=== PATIENT | female | born 1940 | race Caucasian/White ===

== ENCOUNTER 2016-06-26 12:24 | Emergency (ER) | payer OTHER, MEDICARE ==
[~2016-06-26] VITALS: Ht 167.6 cm; Wt 127.0 kg
[~2016-06-26 12:24] MED LIST: ASPIRIN EC81 M1 PO; CRESTOR10 M1 PO; LISINOPRIL-HCT1 EAC2 PO; MECLIZINE HCL25 MG PO; METOPROLOL TART25 M1 PO
[2016-06-26 12:28] VITALS: BP 180/71
--- NOTE | 2016-06-26 12:54 | ED UPPER/LOWER EXTREMITY COMPL ---
History of Present Illness General Chief Complaint: Lower Extremity Problems Stated Complaint: SIB DR MONICA MCCLAIN RIGHT LEG PAIN Source: patient, old records Exam Limitations: no limitations Vital Signs & Intake/Output Vital Signs & Intake/Output Vital Signs Date Time Temp Pulse Resp B/P Pulse O2 O2 Flow FiO2 Ox Delivery Rate 06/26 1228 97.0 69 18 180/71 98 Room Air Allergies Coded Allergies: Penicillins (Intermediate, NAUSEA, VOMITING 02/28/16) amoxicillin (Intermediate, NAUSEA, VOMITING 02/28/16) hydrocodone (Intermediate, NAUSEA, VOMITING 02/28/16) oxycodone (Intermediate, NAUSEA, VOMITING 02/28/16) Reconcile Medications Aspirin (Ecotrin*) 81 MG TABLET. 1 TAB PO DAILY HEART HEALTH (Reported) Lisinopril/Hydrochlorothiazide (Lisinopril-Hctz 10-12.5 MG Tab) 1 EACH TABLET 1 TAB PO DAILY HEART (Reported) Metoprolol Tartrate 25 MG TABLET 1 TAB PO BID HEART (Reported) Rosuvastatin Calcium (Crestor) 10 MG TABLET 1 TAB PO DAILY CHOLESTEROL ( Reported) Triage Note: 76 Y/O FEMALE C/O R LOWER EXTERMITY PAIN X 3 MONTHS; STATES PAIN IS LIKE A "KAROLINE HORSE" AND HAS BEEN WORSENING OVER LAST WEEK. PT STATES SHE WAS EVALUATED BY VASCULAR SURGEON AND WAS TOLD SHE NEEDS A "CAMERA PUT IN THE VEIN TO LOOK FOR A BLOCKAGE". STATES SHE ALSO HAD AN ULTRASOUND WHICH WAS NEGATIVE. PT STATES SHE ALSO HAS A RASH AND SWELLING TO THE AREA OF PAIN. UNABLE TO VISUALIZE IN TRIAGE DUE TO PANTS Triage Nurses Notes Reviewed? yes Onset: Gradual Duration: week(s): (x months worse x 2 weeks), intermittent, waxing and waning Timing: recent history Severity: mild, moderate Severity Numbers: 6 Pain/Injury Location: Bilateral: Leg. Method of Injury: unknown Modifying Factors: Worsens With: movement. Associated Symptoms: none HPI: 76-year-old female with history of hypertension high cholesterol CABG presents complaining of a several month history of rash to the anterior aspect of bilateral legs associated with right calf pain that she's had intermittently for the past several months worse over the past few weeks. She states the pain feels like a "charley horse" that comes on with exertion and moving around. She states she has been seen by vascular doctor in the past who was treating her rashes and states it was resolved with going to the vascular doctor however that they wanted to perform a procedure on her veins. The patient states that she did not believe that this was a vascular issue and stopped going. She states the symptoms have persisted since then. She is not on any blood thinners. She denies any numbness or tingling in her legs, change in the skin complexion, pallor,, coolness or any other concerns. She denies any pain at this time she's been taking Tylenol with relief. No chest pain no shortness of breath (EMI CHAU) Past History Travel History Traveled to [place] past 21 day No Medical History Any Pertinent Medical History? 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 No (EMI CHAU) Review of Systems Review of Systems Constitutional: Reports: see HPI. All Other Systems: Reviewed and Negative Comments Review of systems: See HPI, All other systems negative. Constitutional, no chills no fever, no malaise HEENT: no sore throat no congestion, no ear pain Cardiovascular: No chest pain , no palpitation Skin, no rashes, no change in skin Respiratory: No dyspnea no cough no sputum GI: No nausea no vomiting, no diarrhea : No dysuria No hematuria, no frequency Muscle skeletal: No joint pain, no joint swelling, no back pain, no neck pain, Neurologic: No numbness no headache Psych: No stress Heme/endocrine: No bruising no bleeding Immunology: No lymphadenopathy (EMI CHAU) Physical Exam Physical Exam General Appearance: well developed/nourished, alert, awake Comments: Well-developed well-nourished person in no acute distress HEENT: Normal EENT exam; PERRL, EOMI, HEAD is atraumatic. moist mucous membranes. Neck: Supple, normal range of motion Back: Nontender, Full range of motion Cardiovascular: Regular rate and rhythms no murmurs rubs Respiratory: No respiratory distress. Patient speaking in full complete sentences. Breath sounds clear to auscultation bilaterally: NO W/R/R Abdomen: Soft, nontender nondistended, no appreciable Extremity: 1+ bilateral lower edema, full range of motion of extremities, normal and equal pulses bilaterally, 5 out of 5 strength noted to bilateral upper and lower extremities Neuro: Alert oriented x3, motor sensory normal, there were no obvious focal neurologic abnormalities. Skin: No appreciable rash on exposed skin, there are scaly erythematous plaques noted to bilateral anterior shins Psych: Mood and affect is normal, memory and judgment is normal. (ZULEIKA LEON,EMI) Progress Differential Diagnosis: arterial insufficiency, cellulitis, compartment syndrome , contusion, DVT, sprain, peripheral vascular disease venous stasis dermatitis Diagnostic Imaging: Viewed by Me: Ultrasound. Discussed w/RAD: Ultrasound. Radiology Impression: PATIENT: GEORGE MARIANO PRESENT AGE: 76 PATIENT ACCOUNT NO: [id number] : 38 LOCATION: [facility] ORDERING PHYSICIAN: EMI LEON SERVICE DATE: 06/26/16 EXAM TYPE: US - US-UNILATERAL VENOUS DOPPLER EXAMINATION: US TRIPLEX LOWER EXTREMITY, RIGHT CLINICAL INFORMATION: Right calf pain. COMPARISON: 12/14/2015. TECHNIQUE: Color- flow triplex imaging with spectral analysis and compression Doppler were performed on the right lower extremity. The nuclear technologist reports that this was a difficult examination due to patient body habitus, and that the patient was unable to fully recline due to vertigo. FINDINGS: The right common femoral vein is compressible and exhibits a phasic waveform; this suggests that the iliac veins are widely patent above. Within the proximal thigh, the visualized profunda femoris vein is patent and the examined greater saphenous vein and saphenofemoral junction are normal. Superficial femoral vein is patent in the proximal, mid and distal thigh. Popliteal vein appears normal to the level of the trifurcation. The calf veins are difficult to evaluate due to patient body habitus; however, the visualized deep venous segments are grossly patent on color Doppler imaging. No evidence of Canales's cyst. IMPRESSION: No evidence of deep vein thrombosis in the right lower extremity. DICTATED BY: PEDRO HERNANDEZ MD DATE/TIME DICTATED:06/26/161401 CHILD DEVELOPMENT ASSOCIATE TEACHER:MEET DATE/TIME TRANSCRIBED:06/26/161401 CONFIDENTIAL, DO NOT COPY WITHOUT APPROPRIATE AUTHORIZATION. <Electronically signed in Other Vendor System> SIGNED BY: PDERO HERNANDEZ MD 06/26/16 1408 (EMI CHAU) Plan of Care: Current Medications Sig/Manuel Start time Last Medication Dose Stop Time Status Admin Triamcinolone 1 MIRANDA ONCE ONE 06/26 1415 AC Acetonide 06/26 1416 (Kenalog) Ultrasound ordered patient denies any symptoms at this time case was discussed with Dr. Tim Old records including the patient's previous ultrasound from November of this year was reviewed. I discussed with the patient and her ultrasound findings. Patient was evaluated by Dr. Tim who agrees with plan she'll follow up with vascular surgery this week I discussed with patient her ultrasound results, co band dressing applied. I discussed with her need to follow up with her vascular surgeon who she seen in the past for further workup. She feels couple of this blanches declining anything prescription sainz for pain Tylenol as needed she feels comfortable plan (EMI CHAU) Departure Departure Time of Disposition: 1416 Disposition: HOME OR SELF CARE Condition: Stable Clinical Impression Primary Impression: Stasis dermatitis Referrals: ANNY ANDERSON DO (PCP/Family) Additional Instructions: Follow-up with your primary care physician as well as your vascular surgeon this week Departure Forms: Customer Survey General Discharge Information (EMI CHAU) PA/PATTERN PAINTER Co-Sign Statement Statement: ED Attending supervision documentation- [X] I saw and evaluated the patient. I have also reviewed all the pertinent lab results and diagnostic results. I agree with the findings and the plan of care as documented in the PA's/PATTERN PAINTER's documentation. [] I have reviewed the ED Record and agree with the PA's/PATTERN PAINTER's documentation. [] Additions or exceptions (if any) to the PAs/PATTERN PAINTER's note and plan are summarized below: [] (TRINH WALTON,MAGGY Evans)
--- NOTE | 2016-06-26 14:08 | ULTRASOUND REPORT ---
EXAMINATION: US TRIPLEX LOWER EXTREMITY, RIGHT CLINICAL INFORMATION: Right calf pain. COMPARISON: 12/14/2015. TECHNIQUE: Color-flow triplex imaging with spectral analysis and compression Doppler were performed on the right lower extremity. The electronics engineering technologist reports that this was a difficult examination due to patient body habitus, and that the patient was unable to fully recline due to vertigo. FINDINGS: The right common femoral vein is compressible and exhibits a phasic waveform; this suggests that the iliac veins are widely patent above. Within the proximal thigh, the visualized profunda femoris vein is patent and the examined greater saphenous vein and saphenofemoral junction are normal. Superficial femoral vein is patent in the proximal, mid and distal thigh. Popliteal vein appears normal to the level of the trifurcation. The calf veins are difficult to evaluate due to patient body habitus; however, the visualized deep venous segments are grossly patent on color Doppler imaging. No evidence of Canales's cyst. IMPRESSION: No evidence of deep vein thrombosis in the right lower extremity.
== END 2016-06-26 14:33 ==
LOC: ERH 12:24
DX: I87.2 Venous insufficiency (chronic) (peripheral) (principal); Z87.891 Personal history of nicotine dependence

== ENCOUNTER 2017-07-12 09:52 | Emergency (ER) | payer OTHER, MEDICARE ==
[~2017-07-12] VITALS: Ht 165.1 cm; Wt 131.5 kg
[~2017-07-12 09:52] MED LIST changes: +CYCLOBENZAPRINE10 M1 PO; +NORCO 5-325 TA1 EACH PO; +PREDNISONE10 M2 PO; +TRAMADOL HCL50 M1 PO
--- NOTE | 2017-07-12 11:15 | ED GENERAL ADULT ---
History of Present Illness General Chief Complaint: General Adult Stated Complaint: SIATICA Source: patient Exam Limitations: no limitations Vital Signs & Intake/Output Vital Signs & Intake/Output Vital Signs Date Time Temp Pulse Resp B/P B/P Pulse O2 O2 Flow FiO2 Mean Ox Delivery Rate 07/12 1218 96.3 104 16 140/98 94 Room Air 07/12 1212 Room Air 07/12 0958 96.0 103 20 95 Room Air Room Air Allergies Coded Allergies: Penicillins (Intermediate, NAUSEA, VOMITING 07/12/17) amoxicillin (Intermediate, NAUSEA, VOMITING 07/12/17) hydrocodone (Intermediate, NAUSEA, VOMITING 07/12/17) oxycodone (Intermediate, NAUSEA, VOMITING 07/12/17) Reconcile Medications Aspirin (Ecotrin*) 81 MG TABLET.DR 1 TAB PO DAILY HEART HEALTH (Reported) Cyclobenzaprine HCl 10 MG TABLET 1 TAB PO TID PRN MUSCLE SPASMS Cyclobenzaprine HCl 10 MG TABLET 1 TAB PO QPM PAIN Hydrocodone/Acetaminophen ([place] 5-325 Tablet) 5 MG-325 MG TABLET 1-2 TAB PO Q6P PRN PAIN TAKE WITH FOOD Lisinopril/Hydrochlorothiazide (Lisinopril-Hctz 10-12.5 MG Tab) 1 EACH TABLET 1 TAB PO DAILY HEART (Reported) Metoprolol Tartrate 25 MG TABLET 1 TAB PO BID HEART (Reported) Prednisone 10 MG TABLET 1 TAB PO DAILY SPINAL STENOSIS Prednisone 10 MG TABLET 1 TAB PO DAILY spinal stenosis Prednisone 20 MG TABLET 1 TAB PO DAILY SPINAL STENOSIS Rosuvastatin Calcium (Crestor) 10 MG TABLET 1 TAB PO DAILY CHOLESTEROL ( Reported) Tramadol HCl 50 MG TABLET 1 TAB PO DAILY PRN PAIN Triage Note: PT TO ED FOR C/C OF ? SCIATICA PAIN THAT PATIENT HAS HAD SINCE APRIL. PT VERY EMOTIONAL IN TRIAGE. HAS SEEN DR. PEREZ AND WAS DIAGNOSED WITH SCIATICA BUT HAS NOT HAD RELIEF OF PAIN WITH HOME MEDS. ALSO COMPLAINS OF R ANKLE PAIN X A COUPLE OF DAYS. Triage Nurses Notes Reviewed? yes Onset: Abrupt Duration: week(s): Timing: recent history HPI: 07/12/17 12:03 PM 77-year-old female in severe emergency department with ongoing sciatica pain. She says she's had pain in her back that radiates down her right buttocks into her leg since April of last year. She was seen and evaluated in the emergency department and has had CT scan which confirmed the diagnosis of degenerative joint disease and spinal stenosis. She's also had a prior negative lower extremity ultrasound for DVT. Now she presents with ongoing pain. She says she saw Dr. Pop and was put on diclofenac and this had minimal relief. She is requesting assistance with her pain. There is no bowel or bladder dysfunction. She can ambulate. Lower extremity neurological exam is normal She has bilateral lower extremity swelling. No calf tenderness. Past History Travel History Traveled to [place] past 21 day No Medical History Any Pertinent Medical History? 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 No Review of Systems Review of Systems Constitutional: Denies: fever. EENTM: Denies: visual changes. Respiratory: Denies: short of breath. Cardiovascular: Denies: chest pain. GI: Denies: abdominal pain. Genitourinary: Reports: no symptoms. Musculoskeletal: Reports: see HPI. Skin: Denies: rash. Neurological/Psychological: Reports: no symptoms. Hematologic/Endocrine: Reports: no symptoms. Physical Exam Physical Exam General Appearance: alert, awake, anxious, mild distress Head: atraumatic, normal appearance Eyes: Bilateral: normal appearance, PERRL, EOMI. Ears, Nose, Throat: normal pharynx, normal ENT inspection Neck: normal inspection, supple Respiratory: normal breath sounds, chest non-tender, no respiratory distress Cardiovascular: regular rate/rhythm Peripheral Pulses: 4+ radial (R), 4+ radial (L) Gastrointestinal: soft, non-tender Back: decreased range of motion Extremities: pedal edema, bilaterally, no calf tenderness Neurologic/Psych: no motor/sensory deficits, awake, alert, oriented x 3 Skin: intact, normal color, warm/dry Comments: She has a positive right straight leg raising test. She's had the pain for over a year. She was given subcutaneous morphine. Discharged on prednisone. Given follow-up with the pain center. Core Measures ACS in differential dx? No CVA/TIA Diagnosis: No Sepsis Present: No Sepsis Focused Exam Completed? No Progress Differential Diagnoses I considered the following diagnoses in my evaluation of the patient: [Spinal stenosis, sciatica, compression fracture] Plan of Care: Follow-up the pain center. Follow-up with your doctor next week. Prednisone as directed. Flexeril as directed. Initial ED EKG: none Departure Departure Disposition: HOME OR SELF CARE Condition: Stable Clinical Impression Primary Impression: Sciatica Secondary Impressions: Spinal stenosis Referrals: Virgie Loza MD (PCP/Family) Departure Forms: Customer Survey General Discharge Information Prescriptions: Current Visit Scripts Prednisone 1 TAB PO DAILY #6 TAB Cyclobenzaprine HCl 1 TAB PO QPM #10 TAB Critical Care Note Critical Care Note Critical Care Time: non-applicable
[2017-07-12] MEDS ORDERED: CYCLOBENZAPRINE10 M1 PO (12:11)
[2017-07-12] MEDS ORDERED: PREDNISONE20 M1 PO (12:11)
[2017-07-12 12:18] VITALS: BP 140/98
== END 2017-07-12 12:26 ==
LOC: ERH 09:52
DX: M54.41 Lumbago with sciatica, right side (principal); M48.00 Spinal stenosis, site unspecified
CPT/HCPCS: 96372

== ENCOUNTER 2017-08-13 14:34 | Inpatient (IN) | payer OTHER, MEDICARE ==
[~2017-08-13] VITALS: Ht 165.1 cm; Wt 128.0 kg
[~2017-08-13 14:34] MED LIST changes: +PREDNISONE20 M1 PO
--- NOTE | 2017-08-13 14:38 | ED GENERAL ADULT ---
History of Present Illness General Chief Complaint: General Adult Stated Complaint: BIBA FOR NEW ONSET A.FIB AND CHF Source: patient, old records, EMS Exam Limitations: no limitations Vital Signs & Intake/Output Vital Signs & Intake/Output Vital Signs Date Time Temp Pulse Resp B/P B/P Pulse O2 O2 Flow FiO2 Mean Ox Delivery Rate 08/13 1740 97.6 99 22 135/89 96 Nasal 2.0L Cannula 08/13 1600 96 Nasal 2.0L Cannula 08/13 1502 94 Nasal 2.0L Cannula 08/13 1451 98.0 92 24 162/69 97 Nasal 2.0L Cannula 08/13 1435 98 24 93 Room Air Allergies Coded Allergies: Penicillins (Intermediate, NAUSEA, VOMITING 07/12/17) amoxicillin (Intermediate, NAUSEA, VOMITING 07/12/17) hydrocodone (Intermediate, NAUSEA, VOMITING 07/12/17) oxycodone (Intermediate, NAUSEA, VOMITING 07/12/17) Triage Nurses Notes Reviewed? yes Onset: Gradual Duration: week(s): Timing: no prior history Injury Environment: home Severity: moderate Modifying Factors: Improves With: immobilization. Worsens With: movement. HPI: Pt is a 77 yo WF with a PMH significant for CABG, HTN, HLD, 20-25 year tobacco use, who was BIBA from home after she was encouraged to report to [facility] by her change of address clerk for IV lasix as she presented to the Software Engineering Analyst's office early this morning with signs of fluid overload, SOB, bilat pedal edema, abdominal distension. The pt states she was newly diagnosed with atrial fibrilliation and CHF this morning. Pt reports increasing SOB over the past 6 weeks, slightly worse in supine position, she currently uses two pillows at bedtime. She noted her LE edema about 2 wks ago, as well as her abdominal distension which has made driving slightly more uncomfortable due to a lack of distance between her abdomen and steering wheel. She has an intermittent cough triggerred by warm air and certain foods. Denies subjective fevers. Denies prolonged periods of inactivity or immobility. (Junaid LEON,Merlene) Reconcile Medications Aspirin (Ecotrin*) 81 MG TABLET. 1 TAB PO DAILY HEART HEALTH (Reported) Lisinopril/Hydrochlorothiazide (Lisinopril-Hctz 10-12.5 MG Tab) 1 EACH TABLET 1 TAB PO DAILY HEART (Reported) Metoprolol Tartrate 25 MG TABLET 1 TAB PO BID HEART (Reported) Rosuvastatin Calcium (Crestor) 10 MG TABLET 1 TAB PO DAILY CHOLESTEROL ( Reported) Tramadol HCl 50 MG TABLET 1 TAB PO DAILY PRN PAIN (Erin WALTON,Jose G) Past History Travel History Traveled to [place] past 21 day No Medical History Any Pertinent Medical History? 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 Yes (Merlene Blanton) Review of Systems Review of Systems Constitutional: Reports: see HPI, malaise. Denies: chills, fever. Respiratory: Reports: cough, orthopnea, short of breath. Cardiovascular: Reports: edema. Denies: chest pain, palpitations. GI: Reports: distention. Denies: nausea, bloody stool, vomiting. Comments Review of systems: See HPI, All other systems negative. Constitutional, no chills fever or weight loss HEENT: No visual changes no sore throat no congestion Cardiovascular: No chest pain ,palpitation Skin, no jaundice Respiratory: No cough sputum or hemoptysis GI: No nausea no vomiting : No dysuria No hematuria Muscle skeletal: no back pain, no neck pain, Neurologic: No numbness no confusion Psych: No stress anxiety or depression,. Heme/endocrine: No bruising no bleeding no polyuria or polydipsia Immunology: No splenectomy or history of AIDSs (Merlene Blanton) Physical Exam Physical Exam General Appearance: no apparent distress, alert, awake, comfortable, obese Head: normal appearance Eyes: Bilateral: EOMI. Respiratory: normal breath sounds, lungs clear Cardiovascular: irregularly irregular Gastrointestinal: soft, distention, tenderness Extremities: pedal edema, bilat LE excoriations/ulcerations Neurologic/Psych: alert, oriented x 3 Skin: scabbed lesions over anterior skin bilaterally. no active bleeding Comments: obese person in no acute distress HEENT: Pupils equally round and reactive to light and accommodation. Nose is atraumatic. Neck: Supple, no lymphadenopathy, normal range of motion without pain or tenderness Back: Nontender Cardiovascular: irRegular rate and rhythms no murmurs rubs or gallops, normal JVP Respiratory: Chest nontender. No respiratory distress.breath sounds diminished to auscultation bilaterally at bases Abdomen: Soft, nslightly distended in the lower abdomen, positive edema, , no appreciable organomegaly. Normal bowel sounds. rectal: brown stool ,guiac negative. Extremity: 2 Plus pitting edema in the lower extremities bilaterally, no calf tenderness to palpation, normal and equal pulses. Neuro: Alert oriented x3, motor sensory normal Skin: dry scabbing lesions approx 1-2 cm in size scattered over anterior garsia bilaterally. Psych: Mood and affect is normal, memory and judgment is normal. Core Measures ACS in differential dx? Yes CVA/TIA Diagnosis: No Sepsis Present: No Sepsis Focused Exam Completed? No (Junaid LEON,Merlene) Progress Differential Diagnoses I considered the following diagnoses in my evaluation of the patient: copd, chf, pna, influenza, pe,acs, onset atrial fibrillation, cardiac arrhythmia, electrolyte abnormality, anemia, flu - Plan of Care: Orders Procedure Date/time Status CBC WITHOUT DIFFERENTIAL 08/14 0600 Active BASIC ELECTROLYTES PLUS BUN&CR 08/14 0600 Active TROPONIN LEVEL 08/14 0300 Active EKG 08/14 0300 Active Heart Healthy Diet 08/13 D Active TROPONIN LEVEL 08/13 2100 Active EKG 08/13 2100 Active URINALYSIS 08/13 1723 Active Code Status 08/13 1719 Active Lab Add-on Test 08/13 1623 Active ECHOCARDIOGRAM 08/13 1623 Active TRC EVALUATION (GEN) 08/13 1618 Active Pathway - chart 08/13 1618 Active House Staff 08/13 1618 Active Patient Data 08/13 1618 Active Code Status 08/[address] CHEST WO IV CONTRAST 08/[address] ABD & PELVIS W/O IV CONTRAS 08/13 1605 Active OXYGEN SETUP (GEN) 08/13 1559 Active Saline Lock 08/13 1559 Active Admit to inpatient 08/13 1559 Active Vital Signs 08/13 1559 Active Activity/Ambulation 08/13 1559 Active Code Status 08/13 1559 Complete THYROID STIMULATING HORMONE 08/13 1450 Complete FREE T4 08/13 1450 Complete Telemetry/Mortgage Coordinator 08/13 1446 Active PARTIAL THROMBOPLASTIN TIME 08/13 1446 Complete PROTHROMBIN TIME 08/13 1446 Complete D-DIMER 08/13 1446 Complete TROPONIN LEVEL 08/13 1444 Complete COMPREHENSIVE METABOLIC PANEL 08/13 1444 Complete CBC WITHOUT DIFFERENTIAL 08/13 1444 Complete B-TYPE NATRIURETIC PEP (BNP) 08/13 1444 Complete EKG 08/13 1435 Active Weight 08/13 UNK Active VTE Mechanical Prophylaxis 08/13 UNK Active Vital Signs 08/13 UNK Active Telemetry/Mortgage Coordinator 08/13 UNK Active Intake & Output 08/13 UNK Active Current Medications Sig/Manuel Start time Last Medication Dose Stop Time Status Admin Atorvastatin Calcium 10 MG 1700 08/14 1700 UNVr (Lipitor) Furosemide 20 MG 7:30 AM, & 4:30 PM 08/14 0730 UNVr (Lasix) Metoprolol Tartrate 25 MG BID 08/13 2200 UNVr (Lopressor) Aspirin Buffered 81 MG DAILY 08/13 1717 UNVr 08/13 (Ecotrin) 1755 Acetaminophen 650 MG Q6P PRN 08/13 1630 AC (Tylenol) Heparin Sodium 25,000 UNIT Q24H 08/13 1630 AC 08/13 (Porcine) 1752 (Heparin) Sodium Chloride 500 ML Laboratory Tests 08/13/17 1450: Anion Gap 11, Estimated GFR 40 L, BUN/Creatinine Ratio 23.8, Glucose 116 H, Calcium 9.7, Total Bilirubin 0.9, AST 212 H, ALT 190 H, Alkaline Phosphatase 120, Troponin I 0.03, Job-W-Fjpdivnlinr Pept 1260 H, Total Protein 7.3, Albumin 4.1, Globulin 3.2, Albumin/Globulin Ratio 1.3, TSH 4.110, Free T4 1.03, PT 13.1 H, INR 1.25 H, APTT 30, D-Dimer High Sensitivty 235, CBC w Diff NO MAN DIFF REQ , RBC 3.49 L, MCV 89.8, MCH 29.4, MCHC 32.8 L, RDW 14.8 H, MPV 7.4, Gran % 67.4, Lymphocytes % 17.8 L, Monocytes % 8.9, Eosinophils % 5.3 H, Basophils % 0.6, Absolute Granulocytes 4.8, Absolute Lymphocytes 1.3, Absolute Monocytes 0.6 , Absolute Eosinophils 0.4, Absolute Basophils 0 08/13/2017 4:23:[address] Jorge, patient's change of address clerk, he reports that patient is very noncompliant with outpatient treatment, rule require inpatient treatment for new onset atrial fibrillation, IV diuresis. Recommending we obtained CT of her chest and abdomen to rule out any other source of edema. He recommended we start IV heparin and then transition to oral anticoagulant. Diagnostic Imaging: Viewed by Me: Radiology Read. Discussed w/RAD: Radiology Read. Radiology Impression: PATIENT: GEORGE MARIANO PRESENT AGE: 77 PATIENT ACCOUNT NO: [id number] : 38 LOCATION: [facility] ORDERING PHYSICIAN: Merlene LEON SERVICE DATE: 08/13/17 EXAM TYPE: RAD - XRY-PORTABLE CHEST XRAY EXAMINATION: XR PORTABLE CHEST CLINICAL INFORMATION: Extremity swelling, new onset atrial fibrillation COMPARISON: 11/09 TECHNIQUE: Portable frontal view of the chest was obtained. FINDINGS: Lung volumes are symmetric. No focal consolidation is seen. No evidence of pneumothorax, pleural effusion, or overt pulmonary edema. The cardiac silhouette remains markedly enlarged. Calcification is present at the aortic arch. Sternal wires are present. No acute osseous findings are seen. IMPRESSION: Markedly enlarged cardiac silhouette, which may reflect cardiomegaly and/or pericardial effusion. No acute pulmonary findings. DICTATED BY: Dionisio Moise MD DATE/TIME DICTATED:08/13/171622 JIG BORE TOOL MAKER:MEET DATE/TIME TRANSCRIBED:1622 CONFIDENTIAL, DO NOT COPY WITHOUT APPROPRIATE AUTHORIZATION. < Electronically signed in Other Vendor System> SIGNED BY: Dionisio Moise MD 08/13/171628 Initial ED EKG: AFIB (102) Prior EKG: changed (Junaid LEON,Merlene) Departure Departure Time of Disposition: 1623 Disposition: STILL A PATIENT Condition: Stable Clinical Impression Primary Impression: New onset atrial fibrillation Secondary Impressions: Congestive heart failure Qualifiers: Heart failure type: unspecified Heart failure chronicity: acute Qualified Code: I50.9 - Heart failure, unspecified Referrals: Virgie Loza MD (PCP/Family) Departure Forms: Customer Survey General Discharge Information Admission Note Spoke With: Lázaro Vivar MD Documentation of Exam: Documentation of any treatments & extenuating circumstances including Concerns Regarding Discharge (functional status, medication knowledge or non-compliance, living conditions, etc.) that warrant an admission rather than observation: Patient requiring fluid restriction, monitoring ins and outs, IV diuresis secondary to edema and likely CHF. Patient will require echocardiogram, cardiology consultation, IV anticoagulation and initially and transition to oral anticoagulation, medication management. Discharge at this time is medically harmful as patient has history of poor compliance. (Merlene Blanton) PA/TEACHER THEATER ARTS Co-Sign Statement Statement: ED Attending supervision documentation- x I saw and evaluated the patient. I have also reviewed all the pertinent lab results and diagnostic results. I agree with the findings and the plan of care as documented in the PA's/TEACHER THEATER ARTS's documentation. New onset afib with elevated VR for anticoagulation, rate control [] I have reviewed the ED Record and agree with the PA's/TEACHER THEATER ARTS's documentation. [] Additions or exceptions (if any) to the PAs/TEACHER THEATER ARTS's note and plan are summarized below: [] (Erin WALTON,Jose G) Critical Care Note Critical Care Note Critical Care Time: 30-74 min (Merlene Blanton)
[2017-08-13 15:01] LABS: ABSOLUTE BASOPHIL COUNT 0 /CUMM (0.0-0.2); ABSOLUTE EOSINOPHIL COUNT 0.4 /CUMM (0.0-0.7); ABSOLUTE GRANULOCYTE CT 4.8 /CUMM (1.4-6.5); ABSOLUTE LYMPH COUNT 1.3 /CUMM (1.2-3.4); ABSOLUTE MONOCYTE COUNT 0.6 /CUMM (0.10-0.60); BASOPHIL % 0.6 % (0.0-2.0); EOSINOPHIL % 5.3 % (0-5); GRANULOCYTE % 67.4 % (42.2-75.2); HEMATOCRIT 31.4 % (37-47); MEAN CORPUSCULAR HGB 29.4 PG (27.0-31.0); MEAN CORPUSCULAR HGB CONC 32.8 G/DL (33.0-37.0); MEAN CORPUSCULAR VOLUME 89.8 FL (81.0-99.0); MEAN PLATELET VOLUME 7.4 FL (7.4-10.4); PLATELET COUNT 229 /CUMM (130-400); RBC DISTRIBUTION WIDTH 14.8 % (11.5-14.5); RED BLOOD CELL CT 3.49 /CUMM (4.20-5.40); WHITE BLOOD CELL COUNT 7.2 /CUMM (4.8-10.8)
[2017-08-13 15:10] LABS: PT 13.1 SEC (9.4-12.5); PTT 30 SEC (25-37)
--- NOTE | 2017-08-13 16:29 | RADIOLOGY REPORT ---
EXAMINATION: XR PORTABLE CHEST CLINICAL INFORMATION: Extremity swelling, new onset atrial fibrillation COMPARISON: 11/10/2007 TECHNIQUE: Portable frontal view of the chest was obtained. FINDINGS: Lung volumes are symmetric. No focal consolidation is seen. No evidence of pneumothorax, pleural effusion, or overt pulmonary edema. The cardiac silhouette remains markedly enlarged. Calcification is present at the aortic arch. Sternal wires are present. No acute osseous findings are seen. IMPRESSION: Markedly enlarged cardiac silhouette, which may reflect cardiomegaly and/or pericardial effusion. No acute pulmonary findings.
--- NOTE | 2017-08-13 16:40 | History & Physical ---
Alexis Villasenor 08/13/17 1639: General Information and HPI History of Present Illness: Ms. Juan is a 77-year-old female with a past medical history significant for CAD s/p CABG (2003), HTN, HLD, chronic back pain SIB Dr. Baxter (Cardiology) for new onset CHF and Afib. Patient reports 6 weeks ago she noticed BLE swelling, abdominal distention and progressively worsened SOB. She subsequently noted a change in her skin texture across her abdomen. Her abdomen feels sore. She went to see her tuberculosis specialist today and a ECG was performed that demonstrated new onset A. fib. She sleeps with 2 pillows and reports orthopnea. She eats fast food once per week. Patient reports she had an eye exam one month ago and was prescribed new glasses but still has blurry vision. She reports increased urinary frequency. She denies CP, palpitations, nausea, vomiting, bowel symptoms. Allergies/Medications Allergies: Coded Allergies: Penicillins (Intermediate, NAUSEA, VOMITING 07/12/17) amoxicillin (Intermediate, NAUSEA, VOMITING 07/12/17) hydrocodone (Intermediate, NAUSEA, VOMITING 07/12/17) oxycodone (Intermediate, NAUSEA, VOMITING 07/12/17) Past History Travel History Traveled to [place] past 21 day No Medical History Neurological: NONE EENT: NONE Cardiovascular: AFIB, CAD, hypertension, hyperlipidemia Respiratory: NONE Gastrointestinal: NONE Hepatic: NONE Renal: NONE Musculoskeletal: sciatica, FIBROMYALGIA Psychiatric: NONE Endocrine: NONE Blood Disorders: NONE Cancer(s): NONE 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 Exam & Diagnostic Data Last 24 Hrs of Vital Signs/I&O Vital Signs Date Time Temp Pulse Resp B/P B/P Pulse O2 O2 Flow FiO2 Mean Ox Delivery Rate 08/13 1740 97.6 99 22 135/89 96 Nasal 2.0L Cannula 08/13 1600 96 Nasal 2.0L Cannula 08/13 1502 94 Nasal 2.0L Cannula 08/13 1451 98.0 92 24 162/69 97 Nasal 2.0L Cannula 08/13 1435 98 24 93 Room Air Physical Exam General Appearance Alert, Oriented X3, Cooperative, Mild Distress, obese HEENT Atraumatic, PERRLA, EOMI, Mucous Membr. moist/pink Cardiovascular irregular rate Lungs Clear to Auscultation, Normal Air Movement Abdomen abdominal distention, peau d' orange abdominal skin appearance and texture Extremities BLE excoriated skin lesions, nonpitting edema Rectal Guiac Negative Last 24 Hrs of Labs/Vincent: Laboratory Tests 08/13/17 1450: Anion Gap 11, Estimated GFR 40 L, BUN/Creatinine Ratio 23.8, Glucose 116 H, Calcium 9.7, Total Bilirubin 0.9, AST 212 H, ALT 190 H, Alkaline Phosphatase 120, Troponin I 0.03, Crx-I-Hyljealuqwb Pept 1260 H, Total Protein 7.3, Albumin 4.1, Globulin 3.2, Albumin/Globulin Ratio 1.3, TSH 4.110, Free T4 1.03, PT 13.1 H, INR 1.25 H, APTT 30, D-Dimer High Sensitivty 235, CBC w Diff NO MAN DIFF REQ , RBC 3.49 L, MCV 89.8, MCH 29.4, MCHC 32.8 L, RDW 14.8 H, MPV 7.4, Gran % 67.4, Lymphocytes % 17.8 L, Monocytes % 8.9, Eosinophils % 5.3 H, Basophils % 0.6, Absolute Granulocytes 4.8, Absolute Lymphocytes 1.3, Absolute Monocytes 0.6 , Absolute Eosinophils 0.4, Absolute Basophils 0 Diagnostic Data EKG Results Afib HR 109 QTc 480 Assessment/Plan Assessment: Ms. Juan is a 77-year-old female with a past medical history significant for CAD s/p CABG (2003), HTN, HLD, chronic back pain SIB Dr. Baxter (Cardiology) for new onset CHF and Afib. New onset A. fib * Admit to telemetry for further monitoring and evaluation * Serial troponin/ECG to rule out ACS * Cardiology consult * Echo to rule out SHD and/or RWMA * TSH/T4 New onset CHF ProBNP elevated 1260 and she requires 2L oxygen supplementation. CXR showed cardiomegaly and/or pericardial effusion without any evidence of pulmonary edema. * CT ABD/pel to rule out any acute pathology for abdominal distention and fluid retention * Strict I&O, daily weights * IV Lasix twice a day * Continue home meds * Continue oxygen supplementation Transaminitis most likely secondary to CHF * Monitor LFTs RANDY most likely secondary to CHF versus ACEi use * Avoid nephrotoxins * Hold lisinopril and HCTZ * Monitor renal function Diet: Heart healthy, low sodium DVT prophylaxis: sc heparin Code: DNR/DNI As Ranked By This Provider Problem List: 1. Congestive heart failure Qualifiers Heart failure type: unspecified Heart failure chronicity: acute Qualified Code: I50.9 - Heart failure, unspecified 2. New onset atrial fibrillation Core Measures/Misc (03/04) Acute Coronary Syndrome ACS Diagnosis: No Congestive Heart Failure Congestive Heart Failure Diagnosis Yes Cerebrovascular Accident CVA/TIA Diagnosis: No VTE (View Protocol) VTE Risk Factors Age>40 No Mechanical VTE Prophylaxis d/t N/A MechProphylax Ordered No VTE Pharm Prophylaxis d/t NA PharmProphylax ordered Sepsis (View protocol) Sepsis Present: No Freddie Vivarjewel 08/13/17 6315: General Information and HPI Allergies/Medications Home Med list Aspirin (Ecotrin*) 81 MG TABLET.DR 1 TAB PO DAILY HEART HEALTH (Reported) Furosemide 40 MG TABLET 1 TAB PO DAILY FLUID RETENTION (Reported) Lisinopril/Hydrochlorothiazide (Lisinopril-Hctz 10-12.5 MG Tab) 1 EACH TABLET 1 TAB PO DAILY HEART (Reported) Metoprolol Tartrate 50 MG TABLET 50 MG PO QPM HEART RATE Metoprolol Tartrate (Lopressor) 100 MG TABLET 1 TAB PO QAM HEART RATE Rivaroxaban (Xarelto) 10 MG TABLET 20 MG PO DAILY BLOOD THINNER Rosuvastatin Calcium (Crestor) 10 MG TABLET 1 TAB PO DAILY CHOLESTEROL ( Reported) Tramadol HCl 50 MG TABLET 1 TAB PO DAILY PRN PAIN Attending MD Review Statement Attending Statement Attending MD Statement: examined this patient, discuss w/resident/PA/TEXTILE PIN WORKER, agreed w/resident/PA/TEXTILE PIN WORKER, reviewed EMR data (avail), discussed with nursing Attending Assessment/Plan: 77 yr old female with pmh of htn, hld and obestiy was sent to the ER by her tuberculosis specialist Dr Garcia for New onset afib and chf. Pt started having abdominal wall swelling and leg swelling over the last 2-3 weeks and was evaluated for that by Dr Garcia and on EKG done in clinic was found to be in Afib. Pt has prior h/o smoking when she was in high school and was smoking a pack per week for about 20-25 years. Pt denies any fever or chest pain . pt though has been having polyuria for the last few days. HR in ER on monitor staying b/w 90-110. Pt being admitted for chf and new onset afib. Her guaic done in Er was negative. New onset afib- her chadsvasc score is high so we will start her on heparin drip. cont on metoprolol. hold hctz and lisnopril. Will monitor on tele . cardiology consult and will get echo. Acute CHF exacerbation- was given iv lasix in ER. will start on lasix iv 20 mg q12h. monitor I & O and see how she does. RANDY- will see how she does with holding lisinopril and hctz and treatment of her chf should help d/w pt the care plan. Neal Urrutia 08/13/17 1723: Resident Review Statement Resident Statement: examined this patient, discussed with international manager, agreed with international manager, discussed with family, reviewed EMR data (avail), discussed with nursing , discussed with case mgmt, reviewed images, amended to note Other Findings: This is a 77-year-old female with past medical history significant for coronary artery disease, status post CABG in 2006, hypertension, hyperlipidemia, spinal stenosis and back pain, history of tobacco use, iron deficiency anemia was sent in by tuberculosis specialist Dr. Baxter for evaluation of shortness of breath for 2-3 weeks. Patient reports shortness of breath with minimal exertion, at rest for last 3 weeks. She also noticed worsening lower extremity swelling and pedal edema for last 2 weeks. Patient also reports worsening abdominal distention for the past 2 weeks. She feels that she was fluid overloaded. She has tuberculosis specialist Dr. Jorge. However she didnt follow with him for a while. She denies any chest pain, palpitations, fever, chills, productive cough. She reports using 3 pillows at nighttime. She has orthopnea and paroxysmal nocturnal dyspnea. She was seen by her tuberculosis specialist Dr. Baxter this morning. EKG was done at clinic, which showed atrial fibrillation which is new onset. Given her new onset atrial fibrillation and acute CHF she was sent to the emergency room for further evaluation and requirement for IV Lasix. Review of systems negative for any nausea, vomiting, abdomen pain, constipation, diarrhea, dysuria, urgency, lower abdomen pain. However she reports polyuria, increased frequency. She denies any lower extremity pain. She has prior history of smoking when she was in high school. she smoked 1 pack per week for 25 years. Denied alcohol abuse, illicit drug abuse. Vitals afebrile, heart rate 95-105, respiratory rate 24, blood pressure 162/16, saturating at 96on 2l. HEENT within normal limits, S1 and S2 normal, bilateral breath sounds good, abdomen soft, distended, nontender, bilateral lower extremity +3 pitting edema. Pertinent labs CBCs within normal limits BUN 31 and creatinine 1.3Transaminitis 212, 190 D dimers 235 EKG showed atrial fibrillation, rate 82, no acute ST-T wave changes cxr- Markedly enlarged cardiac silhouette, which may reflect cardiomegaly and/or pericardial effusion. No acute pulmonary findings. ----- 1. Acute CHF Patient presented with worsening shortness of breath, abdominal distention, bilateral lower extremity swelling for the past 3 weeks. ProBNP elevated 1260. She is hemodynamically stable. She is hypoxic requiring 2 L oxygen supplementation. chest x-ray was done in the emergency room which showed cardiomegaly. No overt pulmonary edema. * Acute CHF-most likely possibilities from atrial fibrillation, tachycardia induced cardiomyopathy given her new onset atrial fibrillation. Other possibilities include uncontrolled hypertension, history of coronary artery disease. * We'll admit to telemetry floor * Monitor on telemetry * Serial troponin and EKG * IV Lasix 20 twice a day. The patient received 40 IV lasix in the emergency room. * Monitor ins and outs * Monitor daily weight * Monitor BUN and creatinine * Cardiology consult * Follow-up echocardiogram 2. New onset atrial fibrillation Patient was sent in by tuberculosis specialist after she was found to have new onset atrial fibrillation. EKG in the emergency room showed rate 82, atrial fibrillation, no p waves, irregularly irregular RR interval, no acute ST-T wave changes. Cardiac monitoring in the emergency room showed heart rate varying between 90-110. Calculated chads2 vasc score 4 points given her history of hypertension, CHF, age greater than 75, female. * Atrial fibrillation most likely possibility from congestive heart failure and uncontrolled blood pressure * Continuous telemetry monitoring * Serial troponin and EKG * Rate under control now. * Continue her home medication metoprolol tartrate 25 twice daily * Anticoagulation with IV heparin. Stool guaiac negative in the emergency room * We'll check her thyroid function tests. * Follow up cardiology recommendations 3. Acute kidney injury Patient was found to have creatinine 1.3. Baseline creatinine 0.8. Most likely from heart failure. * Please hold home medication lisinopril and hydrochlorothiazide * Closely monitor BUN and creatinine as patient is on Lasix now * Every nephrotoxin agents 4. Transaminitis Patient was found to have normal bilirubin with elevated E ALT and AST 212, 190. Most likely hepatic congestion from acute heart failure. Denies any abdomen pain. Continue to monitor for now. 5. History of coronary artery disease, CABG continue aspirin and statin 6. Hyperlipidemia continue statin 7. Hypertension-holding her home medication lisinopril, hydrochlorothiazide because of RANDY. Continue metoprolol. give prn hydralazine for her uncontrolled blood pressure if required DNR/DNI DVT prophylaxis IV heparin Heart healthy diet
--- NOTE | 2017-08-13 17:00 | Admission Certification ---
Admission Certification Certification Statement - As attending physician, I certify that at the time of - admission, based on clinical presentation, severity of - symptoms, need for further diagnostic testing and - therapeutic interventions, and risk of adverse outcomes - without in-hospital treatment, in my clinical assessment, - this patient requires an acute hospital stay for a minimum - of two nights or longer. I have also considered psychsocial - factors such as support system, advanced age, financial - issues, cognitive issues, and failed out-patient treatments, - past re-admission history, safety of patient, and lack of - compliance as applicable. Specific rationale supporting this admission is: Acute chf exac and new onset afib.
[2017-08-13 19:41] VITALS: BP 140/80
--- NOTE | 2017-08-13 20:25 | CT SCAN REPORT ---
EXAMINATION: CT CHEST, ABDOMEN, AND PELVIS WITHOUT CONTRAST CLINICAL INFORMATION: Shortness of breath. Edema. Pain. Evaluate for intrathoracic or intra-abdominal process. COMPARISON: CT scan of the abdomen and pelvis 11/10/2007. TECHNIQUE: Multidetector volumetric imaging was performed from the superior aspect of the liver through the pubic symphysis. Sagittal and coronal reformatted images were obtained on the technologist's workstation. DLP: 1720.36 mGy-cm FINDINGS: CHEST: Lungs are clear with no evidence of consolidative disease, effusion, or pneumothorax. The trachea and major airways are grossly patent. Visualized portions of the thoracic outlet including the thyroid gland are unremarkable. The heart is grossly enlarged. No pericardial effusion. Calcified plaque involves the aortic arch apex. Chronic changes of a median sternotomy are noted. There are no pathologically enlarged mediastinal lymph nodes. No axillary adenopathy within the [id number] of this examination. LIVER, GALLBLADDER, AND BILIARY TREE: The unenhanced liver attenuation is grossly homogeneous with no evidence of a discrete hepatic parenchymal mass. There is a tiny amount of hyperdense sludge or debris layering within the gallbladder fundus. The gallbladder is otherwise unremarkable. Grossly no pericholecystic inflammatory changes. PANCREAS: Unremarkable. SPLEEN: Unremarkable. ADRENAL GLANDS: Unremarkable. KIDNEYS AND URETERS: Kidneys are symmetric in size. Grossly there is no discrete renal parenchymal mass. No abnormal perinephric inflammation or collection. No hydronephrosis. No worrisome mass or calcifications visualized along the expected course of the right or left ureters. The urinary bladder is physiologically distended with fluid. GASTROINTESTINAL TRACT: The small and large bowel are unremarkable. The appendix is unremarkable. ABDOMINAL WALL: There is a large fat-containing umbilical hernia that measures 7.8 cm in maximum diameter. The maximum width of the sac measures 6.4 cm. The neck of the sac measures 2.0 cm. No evidence of strangulation. Stomach and small bowel is unremarkable. The appendix is normal. A few diverticula are visualized within the descending and sigmoid colon. No evidence of acute diverticulitis. No free intraperitoneal air or fluid. LYMPH NODES: No pathologically enlarged mesenteric or retroperitoneal lymph nodes. VASCULAR: Scattered atheromatous calcification is visualized throughout the abdominal aorta and iliac vessels. PELVIC VISCERA: There is an anteverted uterus. No worrisome adnexal mass. OSSEOUS STRUCTURES: There is no acute osseous finding. Advanced multilevel degenerative spondylosis of lumbar spine with slight grade 1 anterolisthesis of L4 on L5 that appears to be related to advanced facet degenerative changes at this level. Asymmetric arthrosis of both hips, greater on the left. IMPRESSION: Chest: There is cardiomegaly. The size of the heart has slightly increased from 11/10/2007. Otherwise no abnormal finding is demonstrated within the chest. Specifically no overt consolidative disease or effusion. Abdomen and pelvis: There is a relatively prominent fat-containing umbilical hernia measuring 6.4 cm in maximal diameter. The neck of the sac measures 2.0 cm. No evidence of strangulation. There is advanced multilevel degenerative spondylosis of the lumbar spine. Degenerative arthrosis of both hips, greater on the left.
[2017-08-13 22:16] VITALS: BP 130/70
[2017-08-14 00:31] LABS: PTT 64 SEC (25-37)
--- NOTE | 2017-08-14 01:06 | Event Note ---
Event Note Event Note: I was paged by the nurse, patient complaining of lightheadedness. She is a 77-year-old female admitted for new onset congestive heart failure and new onset atrial fibrillation. She complained of feeling uncomfortable in her left breast following echocardiogram. She said they could urinalysis technician pressed hard on the left side of the breast. She denies chest pain, chest pressure, nausea, vomiting, dizziness, shortness of breath, palpitation. She is comfortable sitting in a recliner with no evidence of any distress. CVS-S1-S2 irregular, RS-normal vesicular breath sounds. Vitals-blood pressure 130/80, saturation 96, pulse rate 98. Plan-stat troponin and EKG. Patient denied troponin, EKG or any other blood work until a.m. Resident made aware.
[2017-08-14 04:06] LABS: ABSOLUTE BASOPHIL COUNT 0.1 /CUMM (0.0-0.2); ABSOLUTE EOSINOPHIL COUNT 0.3 /CUMM (0.0-0.7); ABSOLUTE GRANULOCYTE CT 3.8 /CUMM (1.4-6.5); ABSOLUTE LYMPH COUNT 1.2 /CUMM (1.2-3.4); ABSOLUTE MONOCYTE COUNT 0.8 /CUMM (0.10-0.60); BASOPHIL % 0.9 % (0.0-2.0); EOSINOPHIL % 4.7 % (0-5); GRANULOCYTE % 62.2 % (42.2-75.2); HEMATOCRIT 28.8 % (37-47); MEAN CORPUSCULAR HGB 29.1 PG (27.0-31.0); MEAN CORPUSCULAR HGB CONC 32.6 G/DL (33.0-37.0); MEAN CORPUSCULAR VOLUME 89.4 FL (81.0-99.0); MEAN PLATELET VOLUME 7.4 FL (7.4-10.4); PLATELET COUNT 200 /CUMM (130-400); RBC DISTRIBUTION WIDTH 14.7 % (11.5-14.5); RED BLOOD CELL CT 3.23 /CUMM (4.20-5.40); WHITE BLOOD CELL COUNT 6.1 /CUMM (4.8-10.8)
[2017-08-14 07:02] VITALS: BP 148/70
--- NOTE | 2017-08-14 07:43 | ECHOCARDIOGRAM REPORT ---
GEORGE MARIANO Age: 77 : 1940 Gender: F Exam Date: 08/13/2017 20:19 Exam Location: [address] Ht (in): 65 Wt (lb): 302 BSA: 2.59 BP: 135 / 89 Ordering Physician: Shanae Urrutia MD Referring Physician: Rito Snider MD Technologist: Silvio Rankin [facility] Room Number: 182 Indications: HEART FAILURE Rhythm: Technical Quality: FINDINGS Left Ventricle Normal size left ventricle. Left ventricular wall thickness mildly increased. Normal left ventricular ejection fraction estimated at 55-60%. Right Ventricle Mild right ventricular dilatation. Right Atrium Normal right atrial size. Left Atrium Mild left atrial dilatation. Mitral Valve Moderate mitral annular calcification. Trace to mild mitral regurgitation. Mild mitral stenosis. Aortic Valve Diffuse thickening of the aortic valve cusps with reduced excursion. Avwo-ed-abvzirko aortic stenosis. Trace to mild aortic regurgitation. Tricuspid Valve Tricuspid valve is normal in structure and function. Mild-to- moderate tricuspid regurgitation. Right ventricular systolic pressure estimated to be elevated at 45 mmHg. Pulmonic Valve Pulmonic valve not well visualized, grossly normal. Pericardium Minimal pericardial effusion (normal variant). Great Vessels Mildly dilated proximal ascending aorta (tube). CONCLUSIONS Normal left ventricular systolic function with mild LVH. left atrial enlargement. Mild right ventricular enlargement. Mild to moderate Pulmonary hypertension. Mild to moderate Aortic stenosis and mild Mitral stenosis. Rito Snider M.D. (Electronically Signed) Final Date: 14 August 2017 07:42 MEASUREMENTS (Male / Female) Normal Values 2D ECHO LV Diastolic Diameter PLAX 5.5 cm 4.2 - 5.9 / 3.9 - 5.3 cm LV Systolic Diameter PLAX 3.8 cm 2.1 - 4.0 cm LV Fractional Shortening PLAX 30.9 % 25 - 46 % LV Ejection Fraction 2D Teich 58.0 % IVS Diastolic Thickness 1.1 cm LVPW Diastolic Thickness 1.2 cm LV Relative Wall Thickness 0.4 LVOT Diameter 2.1 cm Aortic Root Diameter 3.6 cm LA Systolic Diameter LX 4.6 cm 3.0 - 4.0 / 2.7 - 3.8 cm LA Volume 70.0 cm 18 - 58 / 22 - 52 cm Ascending Aorta Diameter 3.9 cm DOPPLER AV Peak Velocity 231.0 cm/s AV Peak Gradient 21.3 mmHg AV Mean Velocity 155.0 cm/s AV Mean Gradient 11.0 mmHg AV Velocity Time Integral 38.8 cm LVOT Peak Velocity 95.3 cm/s LVOT Peak Gradient 3.6 mmHg LVOT Mean Velocity 66.8 cm/s LVOT Mean Gradient 2.0 mmHg LVOT Velocity Time Integral 15.9 cm LVOT Stroke Volume 55.1 cm AV Area Cont Eq vti 1.4 cm AV Area Cont Eq pk 1.4 cm MV Peak Velocity 144.0 cm/s MV Peak Gradient 8.3 mmHg MV Mean Velocity 87.5 cm/s MV Mean Gradient 4.0 mmHg Mitral E Point Velocity 126.0 cm/s MV PHT Velocity 142.0 cm/s MV Deceleration [place] 788.0 cm/s MV Pressure Half Time 54.1 ms MV Area PHT 4.1 cm MV Deceleration Time 127.0 ms TV Peak Velocity 319.7 cm/s Right Atrial Pressure 5.0 mmHg PV Peak Velocity 135.5 cm/s PV Peak Gradient 7.3 mmHg PV Mean Velocity 92.1 cm/s PV Mean Gradient 4.0 mmHg PV Velocity Time Integral 24.1 cm
--- NOTE | 2017-08-14 07:43 | PN- Housestaff ---
See Addendum Subjective Follow-up For: New onset Afib New onset CHF Transaminitis RANDY Tele-Events Since Last Visit: Afib HR 91-113 Subjective: Patient reports when she was having her ECHO done the probe was pressing on an open wound below her L breast which caused pain. She deneis SOB, CP, palpitations, or lightheadedness. Review of Systems Constitutional: Reports: see HPI. Objective Last 24 Hrs of Vital Signs/I&O Vital Signs Date Time Temp Pulse Resp B/P B/P Pulse O2 O2 Flow FiO2 Mean Ox Delivery Rate 08/14 1549 98.5 104 20 134/70 91 08/14 0934 134/76 08/14 0702 98.5 103 20 148/70 96 Room Air 08/14 0151 100 08/13 2216 135 138/80 08/13 2216 98.4 115 20 130/70 94 08/13 2124 Nasal 2.0L Cannula 08/13 1957 94 Room Air 08/13 1941 97.0 127 20 140/80 94 08/13 1740 97.6 99 22 135/89 96 Nasal 2.0L Cannula Intake & Output 08/14 1600 08/14 0800 08/14 0000 Intake Total 650 448 584 Output Total 3459 098 6291 Balance -450 48 -616 Intake, IV 250 208 104 Intake, Oral 400 240 480 Number 0 Bowel Movements Output, Urine 2159 079 8860 Patient 301 lb Weight Weight Reported by Patient Measurement Method Physical Exam General Appearance: Alert, Oriented X3, Cooperative, No Acute Distress Cardiovascular: irregular rate Lungs: Clear to Auscultation, Normal Air Movement Abdomen: abdominal distention, peau d' orange skin texture and appearance Extremities: BLE edema, excoriated skin lesions Current Medications: Current Medications Sig/Manuel Start time Last Medication Dose Route Stop Time Status Admin Acetaminophen 650 MG Q6P PRN 08/13 1630 AC PO Albuterol Sulfate 3 ML ONCE ONE 08/13 1530 DC 08/13 INH 08/13 1531 1541 Aspirin 0 .STK-MED ONE 08/13 1800 DC PO Aspirin Buffered 81 MG DAILY 08/13 1717 AC 08/13 PO 1755 Atorvastatin Calcium 10 MG 1700 08/14 1700 DC PO Atorvastatin Calcium 10 MG 1700 08/13 2030 AC 08/13 PO 2216 Furosemide 20 MG 7:30 AM, & 4:30 PM 08/14 0730 AC IV Furosemide 0 .STK-MED ONE 08/13 1549 DC IV Furosemide 40 MG ONCE ONE 08/13 1545 DC 08/13 IV 08/13 1546 1605 Heparin Sodium 0 .STK-MED ONE 08/13 1711 DC (Porcine) .ROUTE Heparin Sodium 25,000 UNIT Q24H 08/13 1630 AC 08/13 (Porcine) IV 1752 Sodium Chloride 500 ML Heparin Sodium 5,000 UNIT ONCE ONE 08/13 1630 DC 08/13 (Porcine) IV 08/13 1631 1752 Ipratropium [place] 2.5 ML ONCE ONE 08/13 1530 DC 08/13 INH 08/13 1531 1540 Metoprolol Tartrate 25 MG BID 08/13 2200 AC 08/13 PO 2216 Last 24 Hrs of Lab/Vincent Results Last 24 Hrs of Labs/Mics: Laboratory Tests 08/14/17 0348: Troponin I 0.04 08/14/17 0348: Anion Gap 10, Estimated GFR 48 L, BUN/Creatinine Ratio 28.2 H, CBC w Diff NO MAN DIFF REQ, RBC 3.23 L, MCV 89.4, MCH 29.1, MCHC 32.6 L, RDW 14.7 H, MPV 7.4, Gran % 62.2, Lymphocytes % 19.5 L, Monocytes % 12.7 H, Eosinophils % 4.7, Basophils % 0.9, Absolute Granulocytes 3.8, Absolute Lymphocytes 1.2, Absolute Monocytes 0.8 H, Absolute Eosinophils 0.3, Absolute Basophils 0.1 08/13/17 2337: APTT 64 H 08/13/17 2115: Troponin I 0.04 08/13/17 2100: Urine Color YEL, Urine Clarity CLEAR, Urine pH 6.0, Ur Specific [place] 1.010, Urine Protein NEG, Urine Ketones NEG, Urine Nitrite NEG, Urine Bilirubin NEG, Urine Urobilinogen 0.2, Ur Leukocyte Esterase NEG, Ur Microscopic EXAM NOT REQUIRED, Urine Hemoglobin NEG, Urine Glucose NEG 08/13/17 1450: Anion Gap 11, Estimated GFR 40 L, BUN/Creatinine Ratio 23.8, Glucose 116 H, Calcium 9.7, Total Bilirubin 0.9, AST 212 H, ALT 190 H, Alkaline Phosphatase 120, Troponin I 0.03, Znf-A-Hhegpddqbkk Pept 1260 H, Total Protein 7.3, Albumin 4.1, Globulin 3.2, Albumin/Globulin Ratio 1.3, TSH 4.110, Free T4 1.03, PT 13.1 H, INR 1.25 H, APTT 30, D-Dimer High Sensitivty 235, CBC w Diff NO MAN DIFF REQ , RBC 3.49 L, MCV 89.8, MCH 29.4, MCHC 32.8 L, RDW 14.8 H, MPV 7.4, Gran % 67.4, Lymphocytes % 17.8 L, Monocytes % 8.9, Eosinophils % 5.3 H, Basophils % 0.6, Absolute Granulocytes 4.8, Absolute Lymphocytes 1.3, Absolute Monocytes 0.6 , Absolute Eosinophils 0.4, Absolute Basophils 0 Assessment/Plan Assessment: Ms. Juan is a 77-year-old female with a past medical history significant for CAD s/p CABG (2003), HTN, HLD, chronic back pain SIB Dr. Baxter (Cardiology) for new onset CHF and Afib. New onset Afib * continue telemetry * Serial troponin/ECG to rule out ACS negative * Cardiology recommendations appreciated * ECHO demonstrated normal left ventricular systolic function with mild LVH. left atrial enlargement. EF> 55-60%. * TSH/T4 wnl * Discontinue IV heparin * Rivaroxaban 20 mg, CrCl-90 * Patient will require JENNIFER as an outpatient as per cardiology recommendation New onset CHF ProBNP elevated 1260 and she required 2L oxygen supplementation. Patient now satting well on room air. CXR showed cardiomegaly and/or pericardial effusion without any evidence of pulmonary edema. * Strict I&O, daily weights * Continue IV Lasix twice a day * Continue aspirin, atorvastatin, metoprolol * Continue oxygen supplementation Transaminitis most likely secondary to CHF * Monitor LFTs RANDY most likely secondary to CHF versus ACEi use * Avoid nephrotoxins * Hold lisinopril and HCTZ * Monitor renal function Diet: Heart healthy, low sodium DVT prophylaxis: sc heparin Code: DNR/DNI Problem List: 1. New onset atrial fibrillation 2. Congestive heart failure 3. RANDY (acute kidney injury) 4. Transaminitis Pain Ratin Pain Location: NA Pain Goal: Remain pain free Pain Plan: NA Tomorrow's Labs & Rationales: BEP for transaminitis and RANDY CBC for anemia
--- NOTE | 2017-08-14 11:37 | Cons- Cardiology ---
General Information and HPI Consulting Request Date of Consult: 08/14/17 Requested By: Patrick Le MD Reason for Consult: New onset atrial fibrillation Source of Information: patient, old records Exam Limitations: no limitations History of Present Illness: The patient is a 77-year-old female with a history of coronary disease status post coronary bypass surgery in 2003 with RICHARDSON to the LAD, saphenous vein grafts to the OM and PDA, peripheral arterial disease, hypertension, obesity, who now presents with shortness of breath for the past 6 months. The patient is not compliant with outpatient follow-up and has not been seen in our office in over a year. She presented yesterday with shortness of breath and fatigue. She also complained of severe sciatic pain. An EKG was performed and she was found to be in new onset atrial fibrillation. The patient therefore was sent to the emergency room for admission. From the cardiac standpoint she has noted increasing edema. She also has two- pillow orthopnea and dyspnea on minimal exertion. She denies chest discomfort. Allergies/Medications Allergies: Coded Allergies: Penicillins (Intermediate, NAUSEA, VOMITING 07/12/17) amoxicillin (Intermediate, NAUSEA, VOMITING 07/12/17) hydrocodone (Intermediate, NAUSEA, VOMITING 07/12/17) oxycodone (Intermediate, NAUSEA, VOMITING 07/12/17) Home Med List: Aspirin (Ecotrin*) 81 MG TABLET.DR 1 TAB PO DAILY HEART HEALTH (Reported) Lisinopril/Hydrochlorothiazide (Lisinopril-Hctz 10-12.5 MG Tab) 1 EACH TABLET 1 TAB PO DAILY HEART (Reported) Metoprolol Tartrate 25 MG TABLET 1 TAB PO BID HEART (Reported) Rosuvastatin Calcium (Crestor) 10 MG TABLET 1 TAB PO DAILY CHOLESTEROL ( Reported) Tramadol HCl 50 MG TABLET 1 TAB PO DAILY PRN PAIN Current Medications: Current Medications Sig/Manuel Start time Last Medication Dose Route Stop Time Status Admin Acetaminophen 650 MG Q6P PRN 08/13 1630 AC PO Albuterol Sulfate 3 ML ONCE ONE 08/13 1530 DC 08/13 INH 08/13 1531 1541 Aspirin 0 .STK-MED ONE 08/13 1800 DC PO Aspirin Buffered 81 MG DAILY 08/13 1717 AC 08/14 PO 0934 Atorvastatin Calcium 10 MG 1700 08/14 1700 DC PO Atorvastatin Calcium 10 MG 1700 08/13 2030 AC 08/13 PO 2216 Furosemide 20 MG 7:30 AM, & 4:30 PM 08/14 0730 AC 08/14 IV 0934 Furosemide 0 .STK-MED ONE 08/13 1549 DC IV Furosemide 40 MG ONCE ONE 08/13 1545 DC 08/13 IV 08/13 1546 1605 Heparin Sodium 0 .STK-MED ONE 08/13 1711 DC (Porcine) .ROUTE Heparin Sodium 25,000 UNIT Q24H 08/13 1630 AC 08/13 (Porcine) IV 1752 Sodium Chloride 500 ML Heparin Sodium 5,000 UNIT ONCE ONE 08/13 1630 DC 08/13 (Porcine) IV 08/13 1631 1752 Ipratropium [place] 2.5 ML ONCE ONE 08/13 1530 DC 08/13 INH 08/13 1531 1540 Metoprolol Tartrate 25 MG BID 08/13 220 AC 08/14 PO 0934 Review of Systems Review of Systems: Eyes no blurred or double vision Ears no deafness or ringing Nose and throat no recurrent sinusitis Lungs per history of present illness Heart per history of present illness Abdomen no nausea vomiting Musculoskeletal chronic sciatic pain Psych no anxiety or depression Neuro without recurrent headache or seizures Endocrine no heat or cold intolerance Past History Travel History Traveled to [place] past 21 day No Medical History Blood Transfusion Hx: Yes Neurological: NONE EENT: NONE Cardiovascular: AFIB, CAD, CHF, hypertension, hyperlipidemia Respiratory: NONE Gastrointestinal: NONE Hepatic: NONE Renal: NONE Musculoskeletal: sciatica Psychiatric: NONE Endocrine: NONE Blood Disorders: NONE Cancer(s): NONE 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 Home Services at Home: Nursing Smoking Status: Former Smoker ETOH Use: denies use Illicit Drug Use: denies illicit drug use Exam & Diagnostic Data Vital Signs and I&O Vital Signs Date Time Temp Pulse Resp B/P B/P Pulse O2 O2 Flow FiO2 Mean Ox Delivery Rate 08/14 0934 134/76 08/14 0702 98.5 103 20 148/70 96 Room Air 08/14 0151 100 08/13 2215 135 138/80 08/13 2215 98.4 115 20 130/70 94 08/13 212 Nasal 2.0L Cannula 08/13 1956 94 Room Air 08/13 194 97.0 127 20 140/80 94 08/13 174 97.6 99 22 135/89 96 Nasal 2.0L Cannula 08/13 1600 96 Nasal 2.0L Cannula 08/13 1502 94 Nasal 2.0L Cannula 08/13 1451 98.0 92 24 162/69 97 Nasal 2.0L Cannula 08/13 1435 98 24 93 Room Air Intake & Output 08/14 1600 08/14 0800 08/14 0000 08/13 1600 08/13 0800 08/13 0000 Intake Total 448 584 Output Total 400 1200 Balance 48 -616 Intake, IV 208 104 Intake, Oral 240 480 Number 0 Bowel Movements Output, Urine 400 1200 Patient 301 lb Weight Weight Reported by Patient Measurement Method Physical Exam: Patient is a well-developed well-nourished female appearing in mild respiratory distress HEENT is unremarkable Neck is supple there is no JVD Lungs bibasilar Rales Heart irregular rhythm S1 and S2 are normal no gallops or rubs 1/6 systolic ejection murmur left sternal border Abdomen bowel sounds positive Extremities 3+ edema Labs/Vincent Results: Laboratory Tests 08/14 08/14 08/13 08/13 0348 0348 2867 2116 Chemistry Sodium (137 - 145 mmol/L) 142 Potassium (3.5 - 5.1 mmol/L) 4.2 Chloride (98 - 107 mmol/L) 102 Carbon Dioxide (22 - 30 mmol/L) 30 Anion Gap (5 - 16) 10 BUN (7 - 17 mg/dL) 31 H Creatinine (0.5 - 1.0 mg/dL) 1.1 H Estimated GFR (>60 ml/min) 48 L BUN/Creatinine Ratio (7 - 25 %) 28.2 H Troponin I (< 0.11 ng/ml) 0.04 0.04 Coagulation APTT (25 - 37 SEC) 64 H Hematology CBC w Diff NO MAN DIFF REQ WBC (4.8 - 10.8 /CUMM) 6.1 RBC (4.20 - 5.40 /CUMM) 3.23 L Hgb (12.0 - 16.0 G/DL) 9.4 L Hct (37 - 47 %) 28.8 L MCV (81.0 - 99.0 FL) 89.4 MCH (27.0 - 31.0 PG) 29.1 MCHC (33.0 - 37.0 G/DL) 32.6 L RDW (11.5 - 14.5 %) 14.7 H Plt Count (130 - 400 /CUMM) 200 MPV (7.4 - 10.4 FL) 7.4 Gran % (42.2 - 75.2 %) 62.2 Lymphocytes % (20.5 - 51.1 %) 19.5 L Monocytes % (1.7 - 9.3 %) 12.7 H Eosinophils % (0 - 5 %) 4.7 Basophils % (0.0 - 2.0 %) 0.9 Absolute Granulocytes (1.4 - 6.5 /CUMM) 3.8 Absolute Lymphocytes (1.2 - 3.4 /CUMM) 1.2 Absolute Monocytes (0.10 - 0.60 /CUMM) 0.8 H Absolute Eosinophils (0.0 - 0.7 /CUMM) 0.3 Absolute Basophils (0.0 - 0.2 /CUMM) 0.1 08/13 08/13 2100 1450 Chemistry Sodium (137 - 145 mmol/L) 141 Potassium (3.5 - 5.1 mmol/L) 4.8 Chloride (98 - 107 mmol/L) 103 Carbon Dioxide (22 - 30 mmol/L) 27 Anion Gap (5 - 16) 11 BUN (7 - 17 mg/dL) 31 H Creatinine (0.5 - 1.0 mg/dL) 1.3 H Estimated GFR (>60 ml/min) 40 L BUN/Creatinine Ratio (7 - 25 %) 23.8 Glucose (65 - 99 mg/dL) 116 H Calcium (8.4 - 10.2 mg/dL) 9.7 Total Bilirubin (0.2 - 1.3 mg/dL) 0.9 AST (14 - 36 U/L) 212 H ALT (9 - 52 U/L) 190 H Alkaline Phosphatase (<127 U/L) 120 Troponin I (< 0.11 ng/ml) 0.03 Tma-O-Ioyplkvpsid Pept (<125 pg/mL) 1260 H Total Protein (6.3 - 8.2 g/dL) 7.3 Albumin (3.5 - 5.0 g/dL) 4.1 Globulin (1.9 - 4.2 gm/dL) 3.2 Albumin/Globulin Ratio (1.1 - 2.2 %) 1.3 TSH (0.270 - 4.200 uIU/mL) 4.110 Free T4 (0.78 - 2.44 ng/dL) 1.03 Coagulation PT (9.4 - 12.5 SEC) 13.1 H INR (0.90 - 1.19) 1.25 H APTT (25 - 37 SEC) 30 D-Dimer High Sensitivty (0 - 243 ng/ml) 235 Hematology CBC w Diff NO MAN DIFF REQ WBC (4.8 - 10.8 /CUMM) 7.2 RBC (4.20 - 5.40 /CUMM) 3.49 L Hgb (12.0 - 16.0 G/DL) 10.3 L Hct (37 - 47 %) 31.4 L MCV (81.0 - 99.0 FL) 89.8 MCH (27.0 - 31.0 PG) 29.4 MCHC (33.0 - 37.0 G/DL) 32.8 L RDW (11.5 - 14.5 %) 14.8 H Plt Count (130 - 400 /CUMM) 229 MPV (7.4 - 10.4 FL) 7.4 Gran % (42.2 - 75.2 %) 67.4 Lymphocytes % (20.5 - 51.1 %) 17.8 L Monocytes % (1.7 - 9.3 %) 8.9 Eosinophils % (0 - 5 %) 5.3 H Basophils % (0.0 - 2.0 %) 0.6 Absolute Granulocytes (1.4 - 6.5 /CUMM) 4.8 Absolute Lymphocytes (1.2 - 3.4 /CUMM) 1.3 Absolute Monocytes (0.10 - 0.60 /CUMM) 0.6 Absolute Eosinophils (0.0 - 0.7 /CUMM) 0.4 Absolute Basophils (0.0 - 0.2 /CUMM) 0 Urines Urine Color (YEL,AMB,STR) YEL Urine Clarity (CLEAR) CLEAR Urine pH (5.0 - 8.0) 6.0 Ur Specific [place] (1.001 - 1.035) 1.010 Urine Protein (NEG,<30 MG/DL) NEG Urine Ketones (NEG) NEG Urine Nitrite (NEG) NEG Urine Bilirubin (NEG) NEG Urine Urobilinogen (0.1 - 1.0 EU/dl) 0.2 Ur Leukocyte Esterase (NEG) NEG Ur Microscopic EXAM NOT REQUIRED Urine Hemoglobin (NEG) NEG Urine Glucose (N MG/DL) NEG Diagnostic Data EKG Results Atrial fibrillation with rapid ventricular response CXR Results IMPRESSION: Markedly enlarged cardiac silhouette, which may reflect cardiomegaly and/or pericardial effusion. No acute pulmonary findings. Other Results Echocardiogram CONCLUSIONS Normal left ventricular systolic function with mild LVH. left atrial enlargement. Mild right ventricular enlargement. Mild to moderate Pulmonary hypertension. Mild to moderate Aortic stenosis and mild Mitral stenosis. Rito Snider M.D. Assessment/Plan Assessment/Plan 1. New onset atrial fibrillation with rapid ventricular response most likely secondary to acute diastolic heart failure. Left atrial enlargement is noted on echocardiogram with overall normal LV function 2. Acute diastolic heart failure 3. Hypertension 4. Coronary disease status post coronary bypass surgery in 2003 with RICHARDSON to the LAD, saphenous vein grafts to the OM and PDA 5. Obesity 6. Chronic sciatic pain 7. Renal insufficiency 8. Hyperlipidemia 9. Anemia questionable etiology Recommendations 1. I would hold lisinopril hydrochlorothiazide at present and continue to diuresis with Lasix. 2. I had a long discussion with the patient regarding her atrial fibrillation and risk of stroke. She refuses to take Coumadin due to side effects that she noted and her . She is agreeable to a NOAC. Given her history of noncompliance I would recommend Xarelto since his once daily. After initiation hyperkalemia discontinued. 3. Monitor renal function closely 4. Recommend rate control with metoprolol and consider a JENNIFER cardioversion as an outpatient Thank you for allowing [facility] to participate in the care of your patient. Consult Acknowledgment - Thank you for your consult request.
[2017-08-14 14:43] LABS: PTT 52 SEC (25-37)
[2017-08-14 15:49] VITALS: BP 134/70
[2017-08-14 22:29] VITALS: BP 132/74
[2017-08-15 07:20] VITALS: BP 144/88
--- NOTE | 2017-08-15 07:31 | PN- Housestaff ---
See Addendum Subjective Follow-up For: New onset Afib New onset CHF Transaminitis RANDY Tele-Events Since Last Visit: Afib HR 89-120 Subjective: No complaints. No acute events overnight Review of Systems Constitutional: Reports: see HPI. Objective Last 24 Hrs of Vital Signs/I&O Vital Signs Date Time Temp Pulse Resp B/P B/P Pulse O2 O2 Flow FiO2 Mean Ox Delivery Rate 08/15 0805 92 144/88 08/15 0720 98.0 92 20 144/88 93 Room Air 08/14 2229 98.6 92 20 132/74 92 Room Air 08/14 2153 Room Air 08/14 2137 107 112/54 08/14 1549 98.5 104 20 134/70 91 Intake & Output 08/15 1600 08/15 0800 08/15 0000 Intake Total 200 360 Output Total 450 750 Balance -250 -390 Intake, Oral 200 360 Number 1 Bowel Movements Output, Urine 450 750 Patient 298 lb Weight Physical Exam General Appearance: Alert, Oriented X3, Cooperative, No Acute Distress Cardiovascular: irregular rate Lungs: Clear to Auscultation, Normal Air Movement Extremities: BLE edema Current Medications: Current Medications Sig/Manuel Start time Last Medication Dose Route Stop Time Status Admin Acetaminophen 650 MG Q6P PRN 08/13 1630 AC PO Aspirin Buffered 81 MG DAILY 08/13 1717 AC 08/15 PO 0805 Atorvastatin Calcium 10 MG 08/13 2030 AC 08/14 PO 1545 Furosemide 20 MG 7:30 AM, & 4:30 PM 08/14 0730 AC 08/15 IV 0805 Heparin Sodium 25,000 UNIT Q24H 08/13 1630 DC 08/13 (Porcine) IV 1752 Sodium Chloride 500 ML Metoprolol Tartrate 25 MG BID 08/13 2200 AC 08/15 PO 0805 Patient Medication 1 ED ONE ONE 08/14 1515 DC Teaching ED 08/14 1516 Rivaroxaban 20 MG 1700 08/14 1700 DC PO Rivaroxaban 20 MG DAILY 08/14 1415 AC 08/15 PO 0806 Last 24 Hrs of Lab/Vincent Results Last 24 Hrs of Labs/Mics: Laboratory Tests 08/15/17 0631: Anion Gap 15, Estimated GFR 48 L, BUN/Creatinine Ratio 26.4 H, Total Bilirubin 0.8, Direct Bilirubin 0.5 H, AST 189 H, ALT 183 H, Alkaline Phosphatase 110, Total Protein 7.4, Albumin 4.2, CBC w Diff NO MAN DIFF REQ, RBC 3.56 L, MCV 89.2, MCH 29.6, MCHC 33.1, RDW 14.5, MPV 7.9, Gran % 64.5, Lymphocytes % 21.3, Monocytes % 8.1, Eosinophils % 5.3 H, Basophils % 0.8, Absolute Granulocytes 5.3, Absolute Lymphocytes 1.7, Absolute Monocytes 0.7 H, Absolute Eosinophils 0.4, Absolute Basophils 0.1 08/14/17 1242: APTT 52 H Assessment/Plan Assessment: Ms. Juan is a 77-year-old female with a past medical history significant for CAD s/p CABG (2003), HTN, HLD, chronic back pain SIB Dr. Baxter (Cardiology) for new onset CHF and Afib. New onset Afib * continue telemetry * Serial troponin/ECG to rule out ACS negative * Cardiology recommendations appreciated * ECHO demonstrated normal left ventricular systolic function with mild LVH. left atrial enlargement. EF> 55-60%. * TSH/T4 wnl * Discontinue IV heparin * Continue Rivaroxaban 20 mg, CrCl-90 * Patient will require JENNIFER as an outpatient as per cardiology recommendation New onset CHF ProBNP elevated 1260 and she required 2L oxygen supplementation. Patient now satting well on room air. CXR showed cardiomegaly and/or pericardial effusion without any evidence of pulmonary edema. * Strict I&O, daily weights * Continue IV Lasix twice a day, currently -1.7 fluid balance * OOB, ambulate with pulse oximetry monitoring * Continue aspirin, atorvastatin, metoprolol * Follow LFTs while on high dose statin * Patient will need a rollator upon discharge for impaired mobility Transaminitis most likely secondary to CHF * Monitor LFTs RANDY most likely secondary to CHF versus ACEi use * Avoid nephrotoxins * Hold lisinopril and HCTZ * Monitor renal function Diet: Heart healthy, low sodium DVT prophylaxis: sc heparin Code: DNR/DNI Problem List: 1. RANDY (acute kidney injury) 2. Transaminitis 3. New onset atrial fibrillation 4. Congestive heart failure Pain Ratin Pain Location: NA Pain Goal: Remain pain free Pain Plan: NA Tomorrow's Labs & Rationales: BEP for transaminitis and RANDY CBC for anemia
[2017-08-15 08:31] LABS: ABSOLUTE BASOPHIL COUNT 0.1 /CUMM (0.0-0.2); ABSOLUTE EOSINOPHIL COUNT 0.4 /CUMM (0.0-0.7); ABSOLUTE GRANULOCYTE CT 5.3 /CUMM (1.4-6.5); ABSOLUTE LYMPH COUNT 1.7 /CUMM (1.2-3.4); ABSOLUTE MONOCYTE COUNT 0.7 /CUMM (0.10-0.60); BASOPHIL % 0.8 % (0.0-2.0); EOSINOPHIL % 5.3 % (0-5); GRANULOCYTE % 64.5 % (42.2-75.2); HEMATOCRIT 31.7 % (37-47); MEAN CORPUSCULAR HGB 29.6 PG (27.0-31.0); MEAN CORPUSCULAR HGB CONC 33.1 G/DL (33.0-37.0); MEAN CORPUSCULAR VOLUME 89.2 FL (81.0-99.0); MEAN PLATELET VOLUME 7.9 FL (7.4-10.4); PLATELET COUNT 242 /CUMM (130-400); RBC DISTRIBUTION WIDTH 14.5 % (11.5-14.5); RED BLOOD CELL CT 3.56 /CUMM (4.20-5.40); WHITE BLOOD CELL COUNT 8.2 /CUMM (4.8-10.8)
--- NOTE | 2017-08-15 12:10 | PN- Cardiology ---
Subjective Subjective: The patient is awake, alert The events of the last 24 hours as well as telemetry were reviewed. Review of Systems: The review of systems is negative for chest pains, palpitations nor lightheadedness. The remainder of the 14 point review of systems is noncontributory with the exception of above. Objective Vital Signs and I&Os Vital Signs Date Time Temp Pulse Resp B/P B/P Pulse O2 O2 Flow FiO2 Mean Ox Delivery Rate 08/15 0805 92 144/88 08/15 0720 98.0 92 20 144/88 93 Room Air 08/14 2229 98.6 92 20 132/74 92 Room Air 08/14 2153 Room Air 08/14 2137 107 112/54 08/14 1549 98.5 104 20 134/70 91 Intake & Output 08/15 1600 08/15 0800 08/15 0000 08/14 1600 08/14 0800 08/14 0000 Intake Total 200 360 650 448 584 Output Total 719 950 2932 400 1200 Balance -250 -390 -450 48 -616 Intake, IV 250 208 104 Intake, Oral 200 360 400 240 480 Number 1 0 Bowel Movements Output, Urine 844 908 7962 400 1200 Patient 298 lb 301 lb Weight Weight Reported by Patient Measurement Method Physical Exam: General: Nontoxic, no apparent distress. HEENT: Sclera and conjunctiva within normal limits, without xanthelasmas. Neck: Carotids 2+ without bruits. Respiratory: Clear to auscultation, air movement is good, without accessory respiratory muscle use. Heart: Regular rate and rhythm, without murmurs, without JVD. Abdomen: Soft, nontender, no masses, normoactive bowel sounds. Extremities: Without clubbing, cyanosis, without edema. Neuro: Nonfocal exam, strength, 5 out of 5 Skin: Within normal limits without lesions. Psych: Mood and affect: Normal Current Medications: Current Medications Sig/Manuel Start time Last Medication Dose Route Stop Time Status Admin Acetaminophen 650 MG Q6P PRN 08/13 1630 AC PO Aspirin Buffered 81 MG DAILY 08/13 1717 AC 08/15 PO 0805 Atorvastatin Calcium 10 MG 1700 08/13 2030 AC 08/14 PO 1545 Furosemide 20 MG 7:30 AM, & 4:30 PM 08/14 0730 AC 08/15 IV 0805 Heparin Sodium 25,000 UNIT Q24H 08/13 1630 DC 08/13 (Porcine) IV 1752 Sodium Chloride 500 ML Metoprolol Tartrate 25 MG BID 08/13 2200 AC 08/15 PO 0805 Patient Medication 1 ED ONE ONE 08/14 1515 DC Teaching ED 08/14 1516 Rivaroxaban 20 MG 1700 08/14 1700 DC PO Rivaroxaban 20 MG DAILY 08/14 1415 AC 08/15 PO 0806 Results Last 48 Hrs of Labs/Mics: Laboratory Tests 08/15/17 0631: Anion Gap 15, Estimated GFR 48 L, BUN/Creatinine Ratio 26.4 H, Total Bilirubin 0.8, Direct Bilirubin 0.5 H, AST 189 H, ALT 183 H, Alkaline Phosphatase 110, Total Protein 7.4, Albumin 4.2, CBC w Diff NO MAN DIFF REQ, RBC 3.56 L, MCV 89.2, MCH 29.6, MCHC 33.1, RDW 14.5, MPV 7.9, Gran % 64.5, Lymphocytes % 21.3, Monocytes % 8.1, Eosinophils % 5.3 H, Basophils % 0.8, Absolute Granulocytes 5.3, Absolute Lymphocytes 1.7, Absolute Monocytes 0.7 H, Absolute Eosinophils 0.4, Absolute Basophils 0.1 08/14/17 1242: APTT 52 H 08/14/17 0348: Troponin I 0.04 08/14/17 0348: Anion Gap 10, Estimated GFR 48 L, BUN/Creatinine Ratio 28.2 H, Total Bilirubin 0.6, Direct Bilirubin 0.5 H, AST 186 H, ALT 194 H, Alkaline Phosphatase 105, Total Protein 6.8, Albumin 3.6, CBC w Diff NO MAN DIFF REQ, RBC 3.23 L, MCV 89.4, MCH 29.1, MCHC 32.6 L, RDW 14.7 H, MPV 7.4, Gran % 62.2, Lymphocytes % 19.5 L, Monocytes % 12.7 H, Eosinophils % 4.7, Basophils % 0.9, Absolute Granulocytes 3.8, Absolute Lymphocytes 1.2, Absolute Monocytes 0.8 H, Absolute Eosinophils 0.3, Absolute Basophils 0.1 08/13/17 2337: APTT 64 H 08/13/17 2115: Troponin I 0.04 08/13/17 2100: Urine Color YEL, Urine Clarity CLEAR, Urine pH 6.0, Ur Specific [place] 1.010, Urine Protein NEG, Urine Ketones NEG, Urine Nitrite NEG, Urine Bilirubin NEG, Urine Urobilinogen 0.2, Ur Leukocyte Esterase NEG, Ur Microscopic EXAM NOT REQUIRED, Urine Hemoglobin NEG, Urine Glucose NEG 08/13/17 1450: Anion Gap 11, Estimated GFR 40 L, BUN/Creatinine Ratio 23.8, Glucose 116 H, Calcium 9.7, Total Bilirubin 0.9, AST 212 H, ALT 190 H, Alkaline Phosphatase 120, Troponin I 0.03, Wzn-I-Pccuktzszqh Pept 1260 H, Total Protein 7.3, Albumin 4.1, Globulin 3.2, Albumin/Globulin Ratio 1.3, TSH 4.110, Free T4 1.03, PT 13.1 H, INR 1.25 H, APTT 30, D-Dimer High Sensitivty 235, CBC w Diff NO MAN DIFF REQ , RBC 3.49 L, MCV 89.8, MCH 29.4, MCHC 32.8 L, RDW 14.8 H, MPV 7.4, Gran % 67.4, Lymphocytes % 17.8 L, Monocytes % 8.9, Eosinophils % 5.3 H, Basophils % 0.6, Absolute Granulocytes 4.8, Absolute Lymphocytes 1.3, Absolute Monocytes 0.6 , Absolute Eosinophils 0.4, Absolute Basophils 0 Assessment/Plan Assessment/Plan 1. New onset atrial fibrillation with rapid ventricular response 2. Acute diastolic heart failure 3. Hypertension 4. Coronary disease status post coronary bypass surgery in 2003 with RICHARDSON to the LAD, saphenous vein grafts to the OM and PDA 5. Obesity 6. Chronic sciatic pain 7. Renal insufficiency 8. Hyperlipidemia 9. Anemia questionable etiology Atrial fibrillation: The patient has atrial fibrillation and is currently on anticoagulation. We will continue the same as well as rate control. Her regimen of metoprolol may be increased given her immune hypertension as well as suboptimal rate. Coronary artery disease: Stable. She will continue with beta blockers, aspirin, and I would increase her statin regimen to a high-dose statin. Acute on chronic congestive heart failure with preserved LV systolic function: We will continue rate control for atrial fibrillation as well as diuresis. We will target a net output of approximately 1 L per day as tolerated. Continue telemetry? Yes
[2017-08-15 13:51] VITALS: BP 130/70
[2017-08-15 22:19] VITALS: BP 118/84
[2017-08-16 07:11] VITALS: BP 114/72
--- NOTE | 2017-08-16 07:17 | PN- Housestaff ---
Subjective Follow-up For: New onset Afib New onset CHF Transaminitis RANDY Tele-Events Since Last Visit: Afib, PVCs HR 84-118 Subjective: Patient reported yesterday she was crying because of her BLE edema. She reported she never experienced fluid retention in her lower extremities. She reports today she feels fine and anticipates to be discharged today to meet her daughter who is coming to visit her from far. Review of Systems Constitutional: Reports: see HPI. Objective Last 24 Hrs of Vital Signs/I&O Vital Signs Date Time Temp Pulse Resp B/P B/P Pulse O2 O2 Flow FiO2 Mean Ox Delivery Rate 08/16 0816 104 120/70 08/16 0711 98.4 83 18 114/72 92 Room Air 08/16 0000 Room Air 08/15 2240 102 118/84 08/15 2219 98.3 107 16 118/84 91 08/15 1351 97.6 95 20 130/70 92 Room Air Intake & Output 08/16 1600 08/16 0800 08/16 0000 Intake Total 240 100 Output Total 400 950 Balance -160 -850 Intake, Oral 240 100 Output, Urine 400 950 Patient 282 lb Weight Physical Exam General Appearance: Alert, Oriented X3, Cooperative, No Acute Distress Cardiovascular: irregular rate Lungs: Clear to Auscultation, Normal Air Movement Abdomen: Normal Bowel Sounds, Soft, No Tenderness Extremities: BLE edema Current Medications: Current Medications Sig/Manuel Start time Last Medication Dose Route Stop Time Status Admin Acetaminophen 650 MG .STK-MED ONE 08/15 2224 DC PO 08/15 2226 Acetaminophen 650 MG Q6P PRN 08/13 1630 AC 08/15 PO 2240 Aspirin Buffered 81 MG DAILY 08/13 1717 AC 08/16 PO 0816 Atorvastatin Calcium 80 MG 08/15 1700 DC PO Atorvastatin Calcium 40 MG 1700 08/15 1700 AC 08/15 PO 1648 Atorvastatin Calcium 10 MG 0 08/13 2030 DC 08/14 PO 1545 Furosemide 20 MG 7:30 AM, & 4:30 PM 08/14 0730 AC 08/16 IV 0750 Metoprolol Tartrate 50 MG BID 08/15 2200 AC 08/16 PO 0816 Metoprolol Tartrate 25 MG BID 08/13 2200 DC 08/15 PO 0805 Rivaroxaban 20 MG DAILY 08/14 1415 AC 08/16 PO 0816 Assessment/Plan Assessment: Ms. Juan is a 77-year-old female with a past medical history significant for CAD s/p CABG (2004), HTN, HLD, chronic back pain SIB Dr. Baxter (Cardiology) for new onset CHF and Afib. New onset Afib * continue telemetry * Serial troponin/ECG to rule out ACS negative * Cardiology recommendations appreciated * ECHO demonstrated normal left ventricular systolic function with mild LVH. left atrial enlargement. EF> 55-60%. * TSH/T4 wnl * Discontinue IV heparin * Continue Rivaroxaban 20 mg, CrCl-90 * Change Metoprolol to 100 mg QAM, 50 mg QPM * Patient will require JENNIFER as an outpatient as per cardiology recommendation New onset CHF ProBNP elevated 1260 and she required 2L oxygen supplementation. Patient now satting well on room air. CXR showed cardiomegaly and/or pericardial effusion without any evidence of pulmonary edema. * Strict I&O, daily weights * Continue IV Lasix twice a day, currently approx -3L fluid balance * OOB, ambulate with pulse oximetry monitoring * Continue aspirin, atorvastatin, metoprolol * Follow LFTs while on high dose statin * Patient will need a rollator and a commode upon discharge for impaired mobility Transaminitis most likely secondary to CHF * Monitor LFTs RANDY most likely secondary to CHF versus ACEi use * Avoid nephrotoxins * Hold lisinopril and HCTZ * Monitor renal function Diet: Heart healthy, low sodium DVT prophylaxis: sc heparin Code: DNR/DNI Problem List: 1. RANDY (acute kidney injury) 2. Transaminitis 3. New onset atrial fibrillation 4. Congestive heart failure Pain Ratin Pain Location: NA Pain Goal: Remain pain free Pain Plan: NA Tomorrow's Labs & Rationales: None Discharge Plan Discharge Disposition: home
--- NOTE | 2017-08-16 07:21 | Patient Discharge Instructions ---
Discharge Instructions General Discharge Information You were seen/treated for: Congestive heart failure Atrial fibrillation You had these procedures: none Special Instructions: Follow up with your vice president payment upon discharge Follow up with the CHF clinic upon discharge Follow up with your PCP upon discharge Follow up with a repeat liver function test and other labs within 1 week after discharge Diet Recommended Diet: Heart Healthy Activity Other activity limits: As tolerated Acute Coronary Syndrome Inclusion Criteria At DC or during hospital stay patient has or had the following: ACS DIAGNOSIS No Discharge Core Measures Meds if any: Prescribed or Continued at Discharge Meds if any: NOT Prescribed or Continued at Discharge Congestive Heart Failure Inclusion Criteria At DC or during hospital stay patient has or had the following: CHF DIAGNOSIS Yes Discharge Core Measures Meds if any: Prescribed or Continued at Discharge Meds if any: NOT Prescribed or Continued at Discharge Comment Patient is on ACEi in home med Cerebrovascular accident Inclusion Criteria At DC or during hospital stay patient has or had the following: CVA/TIA Diagnosis No Discharge Core Measures Meds if any: Prescribed or Continued at Discharge Meds if any: NOT Prescribed or Continued at Discharge Venous thromboembolism Inclusion Criteria VTE Diagnosis No VTE Type NONE VTE Confirmed by (Test) NONE Discharge Core Measures - Per Current guidelines, there needs to be overlap - treatment for the first 5 days of Warfarin therapy. - If discharged on Warfarin prior to 5 days of - overlap therapy, the patient will need to be - assessed for post discharge needs including - *Post discharge parental anticoagulation - *Warfarin and/or parental anticoagulation education - *Follow up date to check INR post discharge At least 5 days overlap therapy as Inpatient No Meds if any: Prescribed or Continued at Discharge Note: Overlap Therapy is Warfarin and Anticoagulant Meds if any: NOT Prescribed or Continued at Discharge
[2017-08-16] MEDS ORDERED: XARELTO10 M1 PO (07:41)
[2017-08-16] MEDS ORDERED: METOPROLOL TART50 M1 PO ×2 (07:41→10:34)
[2017-08-16 08:16] VITALS: BP 120/70
[2017-08-16] MEDS ORDERED: FUROSEMIDE40 M1 PO (08:40)
--- NOTE | 2017-08-16 09:20 | Discharge Summary ---
Visit Information Visit Dates Admission Date: 08/13/17 Discharge Date: 08/16/17 Hospital Course Course Attending Physician: Patrick Le MD Primary Care Physician: Dago WALTON,Virgie [facility] Course: Ms. Juan is a 77-year-old female with a past medical history significant for CAD s/p CABG (2003), HTN, HLD, chronic back pain SIB Dr. Baxter (Cardiology) admitted to telemetry for new onset CHF and Afib. New onset Afib Cardiology was consulted. Serial troponin/ECG to rule out ACS negative. ECHO demonstrated normal left ventricular systolic function with mild LVH and left atrial enlargement, EF> 55-60%. Her TSH/T4 were within normal limits. She was initally on IV heparin and transitioned to Rivaroxaban 20 mg. Prior to discharge her regimen was changed to Metoprolol 100 mg QAM and 50 mg QPM. She was instructed to follow up with her surveying crew rodman for possible JENNIFER as an outpatient New onset CHF ProBNP elevated 1260 and she required 2L oxygen supplementation. CXR showed cardiomegaly and/or pericardial effusion without any evidence of pulmonary edema. She was administered IV Lasix twice a day. She was eventually weaned to ambient air. She was continued on her aspirin, atorvastatin, metoprolol Transaminitis most likely secondary to CHF versus statin use We continued her statin. She remained asymptomatic. We monitored her liver functions and instructed her to have her labs done within 1 week after discharge RANDY most likely secondary to CHF versus ACEi use We avoided nephrotoxins. We held lisinopril and HCTZ. We monitored her renal function Allergies: Coded Allergies: Penicillins (Intermediate, NAUSEA, VOMITING 07/12/17) amoxicillin (Intermediate, NAUSEA, VOMITING 07/12/17) hydrocodone (Intermediate, NAUSEA, VOMITING 07/12/17) oxycodone (Intermediate, NAUSEA, VOMITING 07/12/17) Pertinent Lab Results: 08/13/17-1444 XRY-PORTABLE CHEST XRAY FINDINGS: Lung volumes are symmetric. No focal consolidation is seen. No evidence of pneumothorax, pleural effusion, or overt pulmonary edema. The cardiac silhouette remains markedly enlarged. Calcification is present at the aortic arch. Sternal wires are present. No acute osseous findings are seen. IMPRESSION: Markedly enlarged cardiac silhouette, which may reflect cardiomegaly and/or pericardial effusion. No acute pulmonary findings. 08/13/17-1605 CT ABD & PELVIS W/O IV CONTRAS; CT CHEST WO IV CONTRAST IMPRESSION: Chest: There is cardiomegaly. The size of the heart has slightly increased from 11/10/2007. Otherwise no abnormal finding is demonstrated within the chest. Specifically no overt consolidative disease or effusion. Abdomen and pelvis: There is a relatively prominent fat-containing umbilical hernia measuring 6.4 cm in maximal diameter. The neck of the sac measures 2.0 cm. No evidence of strangulation. There is advanced multilevel degenerative spondylosis of the lumbar spine. Degenerative arthrosis of both hips, greater on the left. 08/13/17-1623 ECHOCARDIOGRAM CONCLUSIONS Normal left ventricular systolic function with mild LVH. left atrial enlargement. Mild right ventricular enlargement. Mild to moderate Pulmonary hypertension. Mild to moderate Aortic stenosis and mild Mitral stenosis. Disposition Summary Disposition Principal Diagnosis: New onset Afib Additional Diagnosis: New onset CHF Transaminitis RANDY Discharge Disposition: home or self care Discharge Instructions General Discharge Information Code Status: Do Not Resucitate/Intubat Patient's Diet: Heart healthy Patient's Activity: As tolerated Follow-Up Instructions/Appts: Follow up with your surveying crew rodman upon discharge Follow up with the CHF clinic upon discharge Follow up with your PCP upon discharge Follow up with a repeat liver function test and other labs within 1 week after discharge Medications at Discharge Discharge Medications: Stop taking the following medications: Metoprolol Tartrate (Metoprolol Tartrate) 25 MG TABLET ORAL TWICE DAILY Qty = 180 Prednisone (Prednisone) 10 MG TABLET ORAL DAILY Qty = 7 Prednisone (Prednisone) 10 MG TABLET ORAL DAILY Qty = 7 Hydrocodone/Acetaminophen ([place] 5-325 Tablet) 5 MG-325 MG TABLET ORAL EVERY SIX HOURS NEEDED as needed for PAIN Qty = 20 Cyclobenzaprine HCl (Cyclobenzaprine HCl) 10 MG TABLET ORAL THREE TIMES DAILY as needed for MUSCLE SPASMS Qty = 21 Prednisone (Prednisone) 20 MG TABLET ORAL DAILY Qty = 6 Cyclobenzaprine HCl (Cyclobenzaprine HCl) 10 MG TABLET ORAL Every night Qty = 10 Continue taking these medications: Lisinopril/Hydrochlorothiazide (Lisinopril-Hctz 10-12.5 MG Tab) 1 EACH TABLET 1 Tablet ORAL DAILY Qty = 90 Comments: NOT GIVEN IN THE HOSPITAL Rosuvastatin Calcium (Crestor) 10 MG TABLET 1 Tablet ORAL DAILY Qty = 90 Comments: NOT GIVEN IN THE HOSPITAL Aspirin (Ecotrin*) 81 MG TABLET.DR 1 Tablet ORAL DAILY Comments: Last Taken: 08/16/17 Time: 08:16 Tramadol HCl (Tramadol HCl) 50 MG TABLET 1 Tablet ORAL DAILY as needed for PAIN Qty = 10 Comments: NOT GIVEN IN THE HOSPITAL Furosemide (Furosemide) 40 MG TABLET 1 Tablet ORAL DAILY Qty = 30 Comments: NOT GIVEN IN THE HOSPITAL Start taking the following new medications: Metoprolol Tartrate (Metoprolol Tartrate) 50 MG TABLET 50 Milligram ORAL Every night Qty = 30 No Refills Comments: Last Taken: 08/16/17 Time: 08:16 Rivaroxaban (Xarelto) 10 MG TABLET 20 Milligram ORAL DAILY Qty = 30 No Refills Comments: Last Taken: 08/16/17 Time: 08:16 Metoprolol Tartrate (Lopressor) 100 MG TABLET 1 Tablet ORAL Every Morning Qty = 30 No Refills Comments: NOT GIVEN IN THE HOSPITAL Copies To: Vee WALTON,Rito Loza MD,Virgie Attending MD Review Statement Documenting Attending: Patrick Le MD Other Findings: The patient was seen and discussed with house staff. Agree with the plan of care upon discharge.
--- NOTE | 2017-08-16 09:46 | PN- Cardiology ---
Subjective Subjective: Telemetry remote reviewed. Atrial fibrillation with ventricular rate of around 80-100. Patient seems to feel better anticipate discharge today. Objective Vital Signs and I&Os Vital Signs Date Time Temp Pulse Resp B/P B/P Pulse O2 O2 Flow FiO2 Mean Ox Delivery Rate 08/16 0816 104 120/70 08/16 0711 98.4 83 18 114/72 92 Room Air 08/16 0000 Room Air 08/15 2240 102 118/84 08/15 2219 98.3 107 16 118/84 91 08/15 1351 97.6 95 20 130/70 92 Room Air Intake & Output 08/16 1600 08/16 0800 08/16 0000 08/15 1600 08/15 0800 08/15 0000 Intake Total 240 100 400 200 360 Output Total 400 950 550 450 750 Balance -160 -850 -150 -250 -390 Intake, Oral 240 100 400 200 360 Number 1 Bowel Movements Output, Urine 400 950 550 450 750 Patient 282 lb 298 lb Weight Physical Exam: Gen. exam patient comfortable ambulating Head normocephalic atraumatic Eyes sclera anicteric conjunctiva showed no pallor extraocular muscles were normal Neck no jugular venous distention no thyroid masses no palpable nodes Chest lungs were clear bilaterally Heart irregular rhythm with a ventricle rate around 86. Abdomen soft protuberant bowel sounds normal Extremities no clubbing cyanosis or edema Neurological no gross motor or sensory deficits. Current Medications: Current Medications Sig/Manuel Start time Last Medication Dose Route Stop Time Status Admin Acetaminophen 650 MG .STK-MED ONE 08/15 2224 DC PO 08/15 222 Acetaminophen 650 MG Q6P PRN 08/13 1630 AC 08/15 PO 2240 Aspirin Buffered 81 MG DAILY 08/13 1717 AC 08/16 PO 0816 Atorvastatin Calcium 80 MG 08/15 1700 DC PO Atorvastatin Calcium 40 MG 1700 08/15 1700 AC 08/15 PO 1648 Atorvastatin Calcium 10 MG 08/13 2030 DC 08/14 PO 1545 Furosemide 20 MG 7:30 AM, & 4:30 PM 08/14 0730 AC 08/16 IV 0750 Metoprolol Tartrate 50 MG BID 08/15 2199 AC 08/16 PO 0816 Metoprolol Tartrate 25 MG BID 08/13 2200 DC 08/15 PO 0805 Rivaroxaban 20 MG DAILY 08/14 1415 AC 08/16 PO 0816 Results Last 48 Hrs of Labs/Mics: Laboratory Tests 08/15/17 0631: Anion Gap 15, Estimated GFR 48 L, BUN/Creatinine Ratio 26.4 H, Total Bilirubin 0.8, Direct Bilirubin 0.5 H, AST 189 H, ALT 183 H, Alkaline Phosphatase 110, Total Protein 7.4, Albumin 4.2, CBC w Diff NO MAN DIFF REQ, RBC 3.56 L, MCV 89.2, MCH 29.6, MCHC 33.1, RDW 14.5, MPV 7.9, Gran % 64.5, Lymphocytes % 21.3, Monocytes % 8.1, Eosinophils % 5.3 H, Basophils % 0.8, Absolute Granulocytes 5.3, Absolute Lymphocytes 1.7, Absolute Monocytes 0.7 H, Absolute Eosinophils 0.4, Absolute Basophils 0.1 08/14/17 1242: APTT 52 H Assessment/Plan Assessment/Plan In summary this 77-year-old female has the following problems 1. New onset atrial fibrillation with rapid ventricular response 2. Acute diastolic heart failure 3. Hypertension 4. Coronary disease status post coronary bypass surgery in 2003 with RICHARDSON to the LAD, saphenous vein grafts to the OM and PDA 5. Obesity 6. Chronic sciatic pain 7. Renal insufficiency 8. Hyperlipidemia 9. Anemia questionable etiology Her atrial fibrillation has is still some modest a ventricular response. I would increase her metoprolol to 100 mg a.m. and 50 mg in PM. She can be discharged on Xarelto 20 mg with supper. She has a prescription for Lasix 40 mg a day. Please give her a slip for (electrolytes BUN/creatinine and CBCs 1 week after discharge with follow-up in 2 weeks. Continue telemetry? No
[2017-08-16] MEDS ORDERED: LOPRESSOR100 M1 PO (10:34)
== END 2017-08-16 13:08 | disposition home health service (06) | DRG 308 ==
LOC: ERH 14:34 → 1NO 15:59 → ERHI 15:59 → CANRESERV 17:18 → ENRESERV 17:18 → ENTRNSPT 18:21 → EDTRNSPT 18:32 → EDTRNSPTSTS 18:32 → EDTRNSPT 18:36 → CMPTRNSPT 18:38 → 1NO 18:40 → ENPENDDIS 08-16 10:35 → ENTRNSPT 08-16 12:45 → 1NO 08-16 13:08 → EDTRNSPT 08-16 13:08 → EDTRNSPTSTS 08-16 13:08 → CMPTRNSPT 08-16 13:16
PROVIDERS: Hospitalist; Internal Medicine; Physician Assistant; Student in an Organized Health Care Education/Training Program
DX: I48.91 Unspecified atrial fibrillation (principal); I50.31 Acute diastolic (congestive) heart failure; N17.9 Acute kidney failure, unspecified; I13.0 Hypertensive heart and chronic kidney disease with heart failure and stage 1 through stage 4 chronic kidney disease, or unspecified chronic kidney disease; R60.0 Localized edema; I42.9 Cardiomyopathy, unspecified; M54.30 Sciatica, unspecified side; N18.9 Chronic kidney disease, unspecified; Z95.1 Presence of aortocoronary bypass graft; E78.5 Hyperlipidemia, unspecified; M79.7 Fibromyalgia; R74.0 Nonspecific elevation of levels of transaminase and lactic acid dehydrogenase [LDH]; D64.9 Anemia, unspecified; E66.9 Obesity, unspecified
CPT/HCPCS: 1NP; 36415; 36592; 71045; 74176; 81003; 82436; 93005; 93010; 93306; 99291; J1644; J1940; J3490

== ENCOUNTER 2017-08-30 11:48 | Inpatient (IN) | payer OTHER, MEDICARE ==
[~2017-08-30] VITALS: Ht 165.1 cm; Wt 132.7 kg
[~2017-08-30 11:48] MED LIST changes: +FUROSEMIDE40 M1 PO; +LOPRESSOR100 M1 PO; +METOPROLOL TART50 M1 PO; +XARELTO10 M1 PO
--- NOTE | 2017-08-30 11:57 | ED DYSPNEA/ASTHMA COMPLAINT ---
See Addendum History of Present Illness General Chief Complaint: General Adult Stated Complaint: BIBA PROBLEM BREATHING,PAIN IN BOTH LE Source: patient, old records Exam Limitations: no limitations Vital Signs & Intake/Output Vital Signs & Intake/Output Vital Signs Date Time Temp Pulse Resp B/P B/P Pulse O2 O2 Flow FiO2 Mean Ox Delivery Rate 08/30 1755 98.1 118 18 136/64 95 Room Air 08/30 1659 97.3 119 18 134/58 95 08/30 1406 97.5 140 20 183/63 08/30 1302 Nasal Cannula 08/30 1158 97.5 140 20 183/63 94 Room Air Allergies Coded Allergies: Penicillins (Intermediate, NAUSEA, VOMITING 07/12/17) amoxicillin (Intermediate, NAUSEA, VOMITING 07/12/17) hydrocodone (Intermediate, NAUSEA, VOMITING 07/12/17) oxycodone (Intermediate, NAUSEA, VOMITING 07/12/17) Reconcile Medications Acetaminophen (Tylenol Extra Strength) 500 MG TABLET 2 TAB PO PRN PAIN ( Reported) Aspirin (Ecotrin*) 81 MG TABLET.DR 1 TAB PO DAILY HEART HEALTH (Reported) Cyanocobalamin (Vitamin B-12) (Cyanocobalamin Injection) 1,000 MCG/ML VIAL 1 ML IM Q30D SUPPLEMENT (Reported) Fluticasone Propionate 50 MCG/ACTUATION SPRAY.SUSP 2 SPRAY NASB DAILY ALLERGIES (Reported) Furosemide 40 MG TABLET 1 TAB PO DAILY FLUID RETENTION (Reported) Levocetirizine Dihydrochloride 5 MG TABLET 1 TAB PO DAILY ALLERGIES (Reported ) Lisinopril/Hydrochlorothiazide (Lisinopril-Hctz 10-12.5 MG Tab) 1 EACH TABLET 1 TAB PO DAILY BP (Reported) Metoprolol Tartrate 50 MG TABLET 50 MG PO QPM HEART RATE Metoprolol Tartrate (Lopressor) 100 MG TABLET 1 TAB PO QAM HEART RATE Nystatin (Nystop) 100,000 UNIT/GRAM POWDER 1 MIRANDA TOP PRN SKIN (Reported) Rivaroxaban (Xarelto) 10 MG TABLET 20 MG PO DAILY BLOOD THINNER Rosuvastatin Calcium (Crestor) 10 MG TABLET 1 TAB PO DAILY CHOLESTEROL ( Reported) Triage Nurses Notes Reviewed? yes Onset: Abrupt Duration: week(s): (1), constant, getting worse Timing: recent history Severity: moderate Activities at Onset: activity Prior Episodes/Possible Cause: occasional episodes Associated Symptoms: chest pain HPI: 77-year-old female with a past medical history significant for CAD s/p CABG ( 2003), HTN, HLD, chronic back pain SIB Dr. Baxter (Cardiology) recently discharged for new onset CHF and A. fib on Xarelto resents the emergency room with multiple complaints. She states that the past week she's been feeling progressively more short of breath, with bilateral leg swelling causing her difficulty ambulating, chest tightness palpitations, and states she has appeared more pale. She states her stool has been dark however no bloody stools. She was compliant with all of her medication however stopped taking her metoprolol and furosemide 3 days ago. She has been compliant with taking her xarelto. She denies any abdominal pain cough fever chills (Drew Welch) Past History Travel History Traveled to [place] past 21 day No Medical History Any Pertinent Medical History? 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 No (Drew Welch) Review of Systems Review of Systems Constitutional: Reports: see HPI. Comments Review of systems: See HPI, All other systems negative. Constitutional, no chills no fever, no malaise HEENT: no sore throat no congestion, no ear pain Cardiovascular: chest pain , palpitation Skin: no rashes, no change in skin Respiratory: dyspnea no cough no sputum no hemoptysis GI: No nausea no vomiting, no diarrhea, no bloating/constipation : No dysuria No hematuria, no frequency Muscle skeletal: No joint pain, no back pain, no neck pain, Neurologic: , no headache Heme/endocrine: No bruising Immunology: No lymphadenopathy (Drew Welch) Physical Exam Physical Exam General Appearance: well developed/nourished, alert Respiratory: normal breath sounds, chest non-tender Comments: Well-developed well-nourished person in no acute distress HEENT: Normal EENT exam; PERRL, EOMI. HEAD is atraumatic. moist mucous membranes. Neck: Supple,normal range of motion Back: Nontender, no CVA tenderness. Full range of motion Cardiovascular: Irregular rate and rhythm no murmurs Respiratory: Chest nontender.There were no bony deformities, no asymmetry. No respiratory distress. Patient speaking in full complete sentences. Breath sounds clear to auscultation bilaterally: NO W/R/R Abdomen: Soft, nontender nondistended, no appreciable organomegaly. Normal bowel sounds. No rebound/guarding, No ascites. Rectal: Brown stool heme positive No mass/hemorrhoid Extremity: 2+ LE edema, full range of motion of extremities, 5 out of 5 strength noted to bilateral upper and lower extremities Neuro: Alert oriented x3, motor sensory normal, There were no obvious focal neurologic abnormalities. Skin: No appreciable rash on exposed skin, skin is warm and dry. Psych: Mood and affect is normal, memory and judgment is normal. Core Measures ACS in differential dx? Yes CVA/TIA Diagnosis No Sepsis Present: No Sepsis Focused Exam Completed? No (Benjy LEON,Drew) Progress Differential Diagnosis: AMI, bronchitis, CHF, COPD, pericarditis, pulmonary embolism, pneumonia, unstable angina Plan of Care: Orders Procedure Date/time Status Nothing by Mouth 08/31 B Active PHOSPHORUS 08/31 0600 Active MAGNESIUM 08/31 0600 Active CBC WITHOUT DIFFERENTIAL 08/31 0600 Active BASIC ELECTROLYTES PLUS BUN&CR 08/31 0600 Active Clear Liquid Diet 08/30 D Complete TROPONIN LEVEL 08/30 2200 Active EKG 08/30 2200 Active LEUKOCYTE POOR (PACKED CELLS) 08/30 1739 Active TROPONIN LEVEL 08/30 1648 Active EKG 08/30 1648 Active Pathway - chart 08/30 1640 Active House Staff 08/30 1640 Active Patient Data 08/30 1640 Active Code Status 08/30 1640 Active BLOOD PRODUCT PICKUP 08/30 1551 Active Patient Data 08/30 1533 Active ED Holding Orders 08/30 1529 Active Admit to inpatient 08/30 1529 Active Vital Signs 08/30 1529 Active Code Status 08/30 1529 Complete LEUKOCYTE POOR (PACKED CELLS) 08/30 1425 Active TYPE & SCREEN (NOT X-MATCH) 08/30 1421 Active Telemetry/Is Support Analyst 08/30 1253 Active TROPONIN LEVEL 08/30 1203 Complete PARTIAL THROMBOPLASTIN TIME 08/30 1203 Complete PROTHROMBIN TIME 08/30 1203 Complete COMPREHENSIVE METABOLIC PANEL 08/30 1203 Complete CBC WITHOUT DIFFERENTIAL 08/30 1203 Complete B-TYPE NATRIURETIC PEP (BNP) 08/30 1203 Complete EKG 08/30 1203 Active Weight 08/30 UNK Active VTE Mechanical Prophylaxis 08/30 UNK Active Telemetry/Is Support Analyst 08/30 UNK Active Nursing Misc 08/30 UNK Active Intake & Output 08/30 UNK Active Elevate 08/30 UNK Active Current Medications Sig/Manuel Start time Last Medication Dose Stop Time Status Admin Atorvastatin Calcium 10 MG 1700 08/31 1700 UNVr (Lipitor) Furosemide 20 MG DAILY 08/31 1000 UNVr (Lasix) Metoprolol Tartrate 100 MG QAM 08/31 1000 UNVr (Lopressor) Metoprolol Tartrate 50 MG QPM 08/30 2200 UNVr (Lopressor) Lidocaine 1 PAT DAILY 08/30 1834 UNVr (Lidoderm) Meclizine HCl 25 MG ONCE ONE 08/30 1730 UNVr 08/30 (Antivert) 08/30 1731 1758 Furosemide 20 MG ONCE ONE 08/30 1715 UNVr (Lasix) 08/30 1716 Lisinopril 10 MG DAILY 08/30 1715 UNVr (Prinivil) Laboratory Tests 08/30/17 1750: Troponin I Pending 08/30/17 1330: Anion Gap 13, Estimated GFR > 60, BUN/Creatinine Ratio 33.3 H, Glucose 141 H, Calcium 9.9, Total Bilirubin 0.6, AST 30, ALT 42, Alkaline Phosphatase 99, Troponin I 0.05, [id number] Pept 734 H, Total Protein 7.0, Albumin 3.9, Globulin 3.1, Albumin/Globulin Ratio 1.3, PT 15.1 H, INR 1.38 H, APTT 27, CBC w Diff NO MAN DIFF REQ, RBC 2.37 L, MCV 86.0, MCH 27.4, MCHC 31.9 L, RDW 14.6 H, MPV 7.2 L, Gran % 74.6, Lymphocytes % 15.4 L, Monocytes % 8.9, Eosinophils % 0.6, Basophils % 0.5, Absolute Granulocytes 6.4, Absolute Lymphocytes 1.3, Absolute Monocytes 0.8 H, Absolute Eosinophils 0.1, Absolute Basophils 0 Labs ordered old records reviewed patient medicated with Cardizem case discussed with Dr. Trent agrees with plan I discussed the patient all her lab results and her H&H was trending down on discharge however is low as it was was 9 with a hemoglobin. Guaiac is brown stool heme positive I spoke with Dr. Peck she will consult however feels the patient can be admitted to telemetry at this time- he advise to give 2 units of blood I DISCUSSED With Dr. Skelton will admit Diagnostic Imaging: Viewed by Me: Radiology Read. Discussed w/RAD: Radiology Read. Radiology Impression: PATIENT: GEORGE MARIANO PRESENT AGE: 77 PATIENT ACCOUNT NO: [id number] : 38 LOCATION: [facility] ORDERING PHYSICIAN: Drew LEON SERVICE DATE: 08/30/17 EXAM TYPE: RAD - XRY-PORTABLE CHEST XRAY EXAMINATION: XR PORTABLE CHEST CLINICAL INFORMATION: Dyspnea. Congestive heart failure COMPARISON: 08/13/2017 TECHNIQUE: Portable frontal view of the chest was obtained. FINDINGS: The film is underpenetrated, likely due to the patient's body habitus. There is bronchovascular crowding. No focal consolidation or mass. No pleural effusion or pneumothorax. Cardiomegaly, similar to prior studies IMPRESSION: No acute pulmonary disease. Cardiomegaly. DICTATED BY: Juanpablo Huertas MD DATE/TIME DICTATED:08/30/171420 LEAD TECHNICAL ARCHITECT:MEET DATE/TIME TRANSCRIBED:1420 CONFIDENTIAL, DO NOT COPY WITHOUT APPROPRIATE AUTHORIZATION. < Electronically signed in Other Vendor System> SIGNED BY: Juanpablo Huertas MD 08/30/171426 Initial ED EKG: AFIB (120), no ST T wave changes Prior EKG: unchanged Rhythm Strip: atrial fibrillation (Drew Welch) Departure Departure Time of Disposition: 1502 Disposition: STILL A PATIENT Condition: Stable Clinical Impression Primary Impression: GI bleed Secondary Impressions: Rapid atrial fibrillation, Symptomatic anemia Referrals: Virgie Loza MD (PCP/Family) Departure Forms: Customer Survey General Discharge Information Admission Note Spoke With: Tiffany Alejandra MD Documentation of Exam: Documentation of any treatments & extenuating circumstances including Concerns Regarding Discharge (functional status, medication knowledge or non-compliance, living conditions, etc.) that warrant an admission rather than observation: [GI CONSULT, CARDIO CONSULT, TREND LABS AND H/H, PREAMTUER DISCHARGE WOULD BE MEDICALLY HARMFUL (Drew Welch) PA/ADMINISTRATIVE SUPERVISOR Co-Sign Statement Statement: ED Attending supervision documentation- [X] I saw and evaluated the patient. I have also reviewed all the pertinent lab results and diagnostic results. I agree with the findings and the plan of care as documented in the PA's/ADMINISTRATIVE SUPERVISOR's documentation. [X] I have reviewed the ED Record and agree with the PA's/ADMINISTRATIVE SUPERVISOR's documentation. [] Additions or exceptions (if any) to the PAs/ADMINISTRATIVE SUPERVISOR's note and plan are summarized below: [LOWER GI BLEED, ON ANTICOAGULATION, ANEMIC, RAPID AFIB, GI CONSULT, CARDIOLOGY CONSULT, TRANSFUSION] (Miley WALTON,Sherman Mota) Critical Care Note Critical Care Note Critical Care Time: 30-74 min (Drew Welch) Critical Care Time: 30-74 min (Drew Welch)
[2017-08-30 13:44] LABS: ABSOLUTE BASOPHIL COUNT 0 /CUMM (0.0-0.2); ABSOLUTE EOSINOPHIL COUNT 0.1 /CUMM (0.0-0.7); ABSOLUTE GRANULOCYTE CT 6.4 /CUMM (1.4-6.5); ABSOLUTE LYMPH COUNT 1.3 /CUMM (1.2-3.4); ABSOLUTE MONOCYTE COUNT 0.8 /CUMM (0.10-0.60); BASOPHIL % 0.5 % (0.0-2.0); EOSINOPHIL % 0.6 % (0-5); GRANULOCYTE % 74.6 % (42.2-75.2); HEMATOCRIT 20.4 % (37-47); MEAN CORPUSCULAR HGB 27.4 PG (27.0-31.0); MEAN CORPUSCULAR HGB CONC 31.9 G/DL (33.0-37.0); MEAN PLATELET VOLUME 7.2 FL (7.4-10.4); PLATELET COUNT 300 /CUMM (130-400); RBC DISTRIBUTION WIDTH 14.6 % (11.5-14.5); RED BLOOD CELL CT 2.37 /CUMM (4.20-5.40); WHITE BLOOD CELL COUNT 8.5 /CUMM (4.8-10.8)
[2017-08-30 13:56] LABS: PT 15.1 SEC (9.4-12.5); PTT 27 SEC (25-37)
--- NOTE | 2017-08-30 14:27 | RADIOLOGY REPORT ---
EXAMINATION: XR PORTABLE CHEST CLINICAL INFORMATION: Dyspnea. Congestive heart failure COMPARISON: 08/13/2017 TECHNIQUE: Portable frontal view of the chest was obtained. FINDINGS: The film is underpenetrated, likely due to the patient's body habitus. There is bronchovascular crowding. No focal consolidation or mass. No pleural effusion or pneumothorax. Cardiomegaly, similar to prior studies IMPRESSION: No acute pulmonary disease. Cardiomegaly.
[2017-08-30] MEDS ORDERED: CYANOCOBAL1000 MCG/2 IM (15:29)
[2017-08-30] MEDS ORDERED: NYSTOP60 GM TOP (15:29)
[2017-08-30] MEDS ORDERED: LEVOCETIRIZINE D5 M1 PO (15:31)
[2017-08-30] MEDS ORDERED: FLUTICASONE PRO16 GM NASB (15:31)
[2017-08-30] MEDS ORDERED: TYLENOL EXTRA500 M2 PO (15:32)
--- NOTE | 2017-08-30 15:53 | History & Physical ---
Real WALTON,Dillon 08/30/17 1552: General Information and HPI MD Statement: I have seen and personally examined GEORGE MARIANO and documented this H&P. The patient is a 77 year old F who presented with a patient stated chief complaint of [sob]. Source of Information: patient, old records Exam Limitations: no limitations History of Present Illness: Patient is a 77-year-old female we performed a home with chief complaints of difficulty in breathing, bilateral lower leg swelling and difficulty ambulating. She was recently admitted over here (08/13/2017 - 08/16/2017) for new onset atrial fibrillation leading to CHF exacerbation and was started on Xarelto, and given Lasix. According to her She was relatively all right after discharge but was having generalized weakness and dyspnea on exertion. It was gradually progressed with couple of days now she cannot walk even with a walker because of shortness of breath and started having heaviness of the chest, dizziness, generalized weakness. She was also complaining of pain in the lower abdomen. She thinks that medications are making her worse since last 2 days she stopped taking metoprolol and Xarelto. Of note she also told that she is having black stools since couple of days but denies for any blood in the stool. According to her she is compliant with the medication except since last 2 days, she does not use salt in her diet, but drinks a lots of liquids - 2 -3 L /day. In records her last weight was 280 and today it was 300Lb. 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 Family history -mother had a history of colon cancer, father had history of coronary artery disease Allergies/Medications Allergies: Coded Allergies: Penicillins (Intermediate, NAUSEA, VOMITING 07/12/17) amoxicillin (Intermediate, NAUSEA, VOMITING 07/12/17) hydrocodone (Intermediate, NAUSEA, VOMITING 07/12/17) oxycodone (Intermediate, NAUSEA, VOMITING 07/12/17) Home Med list Acetaminophen (Tylenol Extra Strength) 500 MG TABLET 2 TAB PO PRN PAIN ( Reported) Aspirin (Ecotrin*) 81 MG TABLET.DR 1 TAB PO DAILY HEART HEALTH (Reported) Cyanocobalamin (Vitamin B-12) (Cyanocobalamin Injection) 1,000 MCG/ML VIAL 1 ML IM Q30D SUPPLEMENT (Reported) Fluticasone Propionate 50 MCG/ACTUATION SPRAY.SUSP 2 SPRAY NASB DAILY ALLERGIES (Reported) Furosemide 40 MG TABLET 1 TAB PO DAILY FLUID RETENTION (Reported) Levocetirizine Dihydrochloride 5 MG TABLET 1 TAB PO DAILY ALLERGIES (Reported ) Lisinopril/Hydrochlorothiazide (Lisinopril-Hctz 10-12.5 MG Tab) 1 EACH TABLET 1 TAB PO DAILY BP (Reported) Metoprolol Tartrate 50 MG TABLET 50 MG PO QPM HEART RATE Metoprolol Tartrate (Lopressor) 100 MG TABLET 1 TAB PO QAM HEART RATE Nystatin (Nystop) 100,000 UNIT/GRAM POWDER 1 MIRANDA TOP PRN SKIN (Reported) Rivaroxaban (Xarelto) 10 MG TABLET 20 MG PO DAILY BLOOD THINNER Rosuvastatin Calcium (Crestor) 10 MG TABLET 1 TAB PO DAILY CHOLESTEROL ( Reported) Past History Travel History Traveled to [place] past 21 day No Medical History Neurological: NONE EENT: NONE Cardiovascular: AFIB, CAD, CHF, hypertension, hyperlipidemia Respiratory: NONE Gastrointestinal: NONE Hepatic: NONE Renal: NONE Musculoskeletal: sciatica Psychiatric: NONE Endocrine: NONE Blood Disorders: NONE Cancer(s): NONE PALLIATIVE CARE PHYSICIAN/Reproductive: NONE History of MRSA: No History of VRE: No History of CDIFF: No Surgical History Surgical History: CABG Past Family/Social History Psychosocial History Services at Home: Nursing Review of Systems Review of Systems Constitutional: Reports: no symptoms, weakness. Respiratory: Reports: short of breath. GI: Reports: no symptoms (black stool), abdominal pain. Skin: Reports: no symptoms (excoriationa and scabs in leg). Exam & Diagnostic Data Last 24 Hrs of Vital Signs/I&O Vital Signs Date Time Temp Pulse Resp B/P B/P Pulse O2 O2 Flow FiO2 Mean Ox Delivery Rate 08/30 1406 97.5 140 20 183/63 08/30 1302 Nasal Cannula 08/30 1158 97.5 140 20 183 94 Room Air Intake & Output 03/15 1600 08/30 0800 08/30 0000 Intake Total Output Total Balance Patient 136.078 kg Weight Weight Estimated Measurement Method Physical Exam General Appearance Alert, Oriented X3, Cooperative, Mild Distress Skin pale HEENT Atraumatic, PERRLA, EOMI Neck distended Cardiovascular irregularly irregular heart rate Lungs Clear to Auscultation, Normal Air Movement Abdomen distended, lower abdoman is tender, skin was indurated, Extremities right lower extremeties was indurated and tender, pulses were palpable, excematouse and scabs of blood were there on fron of legs, Vascular Normal Pulses, Pulses Symmetrical Last 24 Hrs of Labs/Vincent: Laboratory Tests 08/30/17 1330: Anion Gap 13, Estimated GFR > 60, BUN/Creatinine Ratio 33.3 H, Glucose 141 H, Calcium 9.9, Total Bilirubin 0.6, AST 30, ALT 42, Alkaline Phosphatase 99, Troponin I 0.05, Hrb-[id number]-Ilqdcukunqw Pept 734 H, Total Protein 7.0, Albumin 3.9, Globulin 3.1, Albumin/Globulin Ratio 1.3, PT 15.1 H, INR 1.38 H, APTT 27, CBC w Diff NO MAN DIFF REQ, RBC 2.37 L, MCV 86.0, MCH 27.4, MCHC 31.9 L, RDW 14.6 H, MPV 7.2 L, Gran % 74.6, Lymphocytes % 15.4 L, Monocytes % 8.9, Eosinophils % 0.6, Basophils % 0.5, Absolute Granulocytes 6.4, Absolute Lymphocytes 1.3, Absolute Monocytes 0.8 H, Absolute Eosinophils 0.1, Absolute Basophils 0 Diagnostic Data EKG Results Heart rate 121, atrial fibrillation, QTc 483, CXR Results No acute pulmonary disease. Cardiomegaly Assessment/Plan Assessment: Patient is a 77-year-old female with past medical history of coronary artery disease, CABG 3(2003), hypertension, hyperlipidemia, morbid obesity, recently diagnosed with atrial fibrillation on Xarelto(July 2017), history of CHF presented with chief complaints of gradually progressive shortness of breath on exertion, heaviness of the chest. ED course - Vital signs -temperature 97.5, pulse 140, respiratory 20, blood pressure 183/63, SPO2 94% room air. Physical exam -alert 3, mild distress, oral cavity moist, neck pain distended, heart S1-S2 normal, chest bilateral air entry equal, abdomen distended, the skin of the lower abdomen was indurated, tender, bilateral lower extremity edema, right lower extremity tender cough within duration. Blood workup showed -hemoglobin 6.5(baseline 10.5), WBC 8.5, RBC 2.37, hematocrit 20.4, platelet count 300, sodium 137, potassium 4.2, chloride 93, anion gap 13, BUN 30, creatinine 0.9, glucose 141, calcium 9.9, total bilirubin 0.6, AST 30, ALT 42, alkaline phosphatase 99, troponin I 0.05, proBNP 734( [id number]), total protein 7.0, albumin 3.9, PT/INR -15.1/1.38, APTT 27 Chest x-ray -cardiomegaly, no acute pulmonary disease Echocardiogram (July 2017) -left ventricular ejection fraction 55-60%, RVSP 45, mild right ventricular dilatation, mild left atrial dilatation, moderate mitral calcification, [id number] aortic stenosis. Assessment and plan - Patient is a 77-year-old female with multiple medical problems including CAD, CABG 3 (2003), hyperlipidemia, hypertension, recently diagnosed as having atrial fibrillation leading to CHF currently on on Xarelto she presented with gradually progressive shortness of breath along with. Pressure in the chest. On examination her lungs were clear but still having bilateral lower extremity edema along with weight gain(280 to 300lb). She does not have controlled on fluid intake, and she does not able to tolerate her medication and she was thinking that they are making to stop taking metoprolol and Xarelto. She was also having black stools. At the time of admission she found to be in atrial fibrillation with rapid ventricular rate, with severe anemia of hemoglobin 6.5( baseline 10.5). Her stool for occult blood was positive. It seems she had GI bleed secondary to anticoagulant are possible other causes including ulcers. Severe anemia and noncompliance to medication lead to see for tachycardia and the chest pain. We will admit the patient to telemetry floor will obtain cardiology and gastroenterology recommendation. We will start patient on clear liquid and keep n.p.o. from the med night for possible upper GI endoscopy. We will transfuse HER-2 units of blood with the goal of hemoglobin more than 8 and give Lasix in between as needed. Plan - Severe anemia secondary to GI bleed probably Xarelto and will rule out other possibilities * We will admit the patient to telemetry floor * We will transfuse 2 units of blood and give Lasix in between and as needed * We will do serial troponins and EKGs * We will start on clear liquid diet for now and keep her n.p.o. after midnight * We will watch for the bleeding * We will hold aspirin and Xarelto * We will check a CBC every 12 hourly * We will obtain GI consult and follow the recommendation * If patient gets unstable please call GI state. Atrial fibrillation with rapid ventricular rate probably secondary to noncompliance and severe anemia * We will continue her home medication including tablet metoprolol 100 mg in the a.m. and tablet metoprolol 50 mg in p.m. * Injection Lasix 20 mg IV daily and as needed * We will avoid Xarelto and aspirin Shortness of breath probably secondary to severe anemia with baseline history of CHF * Fluid restriction 1000 cc * 2 unit of PRBC transfusion * Strict intake output charting * Reduce salt intake * Keep head end of the bed elevated * We will obtain cardiology consult and follow the recommendation Right lower extremity swelling and tenderness - Although she was on Xarelto, she was not able to tolerate so we are not sure for compliance. * If patient continued to have swelling and tenderness and will consider for color Doppler. Chronic medical condition -hypertension, hyperlipidemia, chronic back pain * We will continue on home medication * Avoid NSAIDs CODE STATUS -DNR/DNI Diet -heart healthy diet/clear liquids, keep n.p.o. after midnight for possible upper GI endoscopy tomorrow DVT prophylaxis -Alps, avoid anticoagulant and blood treatment As Ranked By This Provider Problem List: 1. Symptomatic anemia 2. Rapid atrial fibrillation 3. GI bleed Core Measures/Misc (03/04) Acute Coronary Syndrome ACS Diagnosis: No Congestive Heart Failure Congestive Heart Failure Diagnosis No Cerebrovascular Accident CVA/TIA Diagnosis: No VTE (View Protocol) VTE Risk Factors Age>40 No Mechanical VTE Prophylaxis d/t N/A MechProphylax Ordered No VTE Pharm Prophylaxis d/t Bleeding (Active) Sepsis (View protocol) Sepsis Present: No Tiffany Alejandra MD 08/30/17 1701: Attending MD Review Statement Attending Statement Attending MD Statement: examined this patient, discuss w/resident/PA/DIRECTOR OF MUSIC THERAPY, agreed w/resident/PA/DIRECTOR OF MUSIC THERAPY, discussed with family, reviewed EMR data (avail), discussed with nursing, reviewed images, amended to note Attending Assessment/Plan: 77 y/o F with pmh sig for CAD s/p CABG (2003), HTN, HLD, chronic back pain recently admitted to [facility] with new onset A. fib as well as acute diastolic congestive heart failure exacerbation. During that admission patient claims that since she went home, she has been feeling weak and tired, dizzy, having dyspnea on exertion and some chest pain on exertion. She does admit that her lower extremity swelling has gone down but her abdominal swelling has not improved. She continues to complain of pain in her extremities although swelling has gone down. Due to this progressive dyspnea on exertion, feeling of weakness and some dizziness she presented to the emergency room. In the emergency room patient was found to be profoundly anemic and her stool was guaiac positive brown. She was also found to be tachycardic. Off note she has not been taking her beta blockers over the last couple of days. Vital Signs Date Time Temp Pulse Resp B/P B/P Pulse O2 O2 Flow FiO2 Mean Ox Delivery Rate 08/30 1659 97.3 119 18 134/58 95 08/30 1406 97.5 140 20 183/63 08/30 1302 Nasal Cannula 08/30 1158 97.5 140 20 183/63 94 Room Air on exam; aox3, nad. cv; s1,s2, irregular, tachycardia. resp; clear abd: soft, nt, bs+ ext; trace edema, scar [place] with sacbbing on b/l le. Laboratory Tests 08/30 1330 Chemistry Sodium (137 - 145 mmol/L) 137 Potassium (3.5 - 5.1 mmol/L) 4.2 Chloride (98 - 107 mmol/L) 93 L Carbon Dioxide (22 - 30 mmol/L) 30 Anion Gap (5 - 16) 13 BUN (7 - 17 mg/dL) 30 H Creatinine (0.5 - 1.0 mg/dL) 0.9 Estimated GFR (>60 ml/min) > 60 BUN/Creatinine Ratio (7 - 25 %) 33.3 H Glucose (65 - 99 mg/dL) 141 H Calcium (8.4 - 10.2 mg/dL) 9.9 Total Bilirubin (0.2 - 1.3 mg/dL) 0.6 AST (14 - 36 U/L) 30 ALT (9 - 52 U/L) 42 Alkaline Phosphatase (<127 U/L) 99 Troponin I (< 0.11 ng/ml) 0.05 [id number]-Isrpnyghjnt Pept (<125 pg/mL) 734 H Total Protein (6.3 - 8.2 g/dL) 7.0 Albumin (3.5 - 5.0 g/dL) 3.9 Globulin (1.9 - 4.2 gm/dL) 3.1 Albumin/Globulin Ratio (1.1 - 2.2 %) 1.3 Coagulation PT (9.4 - 12.5 SEC) 15.1 H INR (0.90 - 1.19) 1.38 H APTT (25 - 37 SEC) 27 Hematology CBC w Diff NO MAN DIFF REQ WBC (4.8 - 10.8 /CUMM) 8.5 RBC (4.20 - 5.40 /CUMM) 2.37 L Hgb (12.0 - 16.0 G/DL) 6.5 *L Hct (37 - 47 %) 20.4 L MCV (81.0 - 99.0 FL) 86.0 MCH (27.0 - 31.0 PG) 27.4 MCHC (33.0 - 37.0 G/DL) 31.9 L RDW (11.5 - 14.5 %) 14.6 H Plt Count (130 - 400 /CUMM) 300 MPV (7.4 - 10.4 FL) 7.2 L Gran % (42.2 - 75.2 %) 74.6 Lymphocytes % (20.5 - 51.1 %) 15.4 L Monocytes % (1.7 - 9.3 %) 8.9 Eosinophils % (0 - 5 %) 0.6 Basophils % (0.0 - 2.0 %) 0.5 Absolute Granulocytes (1.4 - 6.5 /CUMM) 6.4 Absolute Lymphocytes (1.2 - 3.4 /CUMM) 1.3 Absolute Monocytes (0.10 - 0.60 /CUMM) 0.8 H Absolute Eosinophils (0.0 - 0.7 /CUMM) 0.1 Absolute Basophils (0.0 - 0.2 /CUMM) 0 EKG>> Afib. CXr: No acute fdg. A/P; 77 y/o F with pmh sig for CAD s/p CABG (2003), HTN, HLD, chronic back pain recently admitted to [facility] with new onset A. fib as well as acute diastolic congestive heart failure exacerbation, was started on beta elise and Xarelto now admitted with generalized weakness, dyspnea on exertion and found to have acute blood loss anemia. Guaiac stool is positive therefore this was likely secondary to GI bleed. Patient also had atrial fibrillation with rapid ventricular response. Patient will be admitted to telemetry. She received Cardizem in the emergency room. We will resume her beta elise. First trop neg, will trend. Please consult cardiology. Patient has been typed and crossed, will receive RBC transfusion. Will monitor the blood counts. GI consult would be obtained. Please start the patient on IV PPI. He should be kept nothing by mouth for now to GI evaluation done. If no procedures planned today, patient can be started on clear liquid diet and then nothing by mouth after midnight for possible procedure tomorrow. Would hold her aspirin for now. Please confirm and continue the rest of the cardiac medications. DVT px; ALPS. DNR/I. Please note patient would like to change her primary care doctor to someone closer and affiliated with [facility]
[2017-08-30 19:40] VITALS: BP 124/84
--- NOTE | 2017-08-30 22:22 | Cons- Gastroenterology ---
General Information and HPI Consulting Request Date of Consult: 08/30/17 (MD [facility]/GASTROENTEROLOGY) Requested By: Justyn WALTON,Tiffany Reason for Consult: G.I. bleed anemia Source of Information: patient, old records History of Present Illness: The patient was recently placed on anticoagulation for atrial fibrillation and congestive heart failure. She was noted to be anemic at that time. She has never had endoscopic evaluation (EGD or colonoscopy). She also takes a baby aspirin daily, but no NSAIDs. She has developed some degree of difficulty with evacuation, but no significant constipation or diarrhea. Her stools have become black and difficult to wipe. She has no heartburn but she does have some regurgitation, and has developed solid food dysphagia. She has also developed lower abdominal pain/tenderness in the area of abdominal swelling. This is not related to eating or defecation. She has rare mild nausea. She has not had bright red blood per rectum, or vomiting. The patient was admitted today with weakness, difficulty with ambulation, shortness of breath, and anemia. In the emergency room she was described as having brown Hemoccult positive stool. Allergies/Medications Allergies: Coded Allergies: Penicillins (Intermediate, NAUSEA, VOMITING 07/12/17) amoxicillin (Intermediate, NAUSEA, VOMITING 07/12/17) hydrocodone (Intermediate, NAUSEA, VOMITING 07/12/17) oxycodone (Intermediate, NAUSEA, VOMITING 07/12/17) Home Med List: Acetaminophen (Tylenol Extra Strength) 500 MG TABLET 2 TAB PO PRN PAIN ( Reported) Aspirin (Ecotrin*) 81 MG TABLET.DR 1 TAB PO DAILY HEART HEALTH (Reported) Cyanocobalamin (Vitamin B-12) (Cyanocobalamin Injection) 1,000 MCG/ML VIAL 1 ML IM Q30D SUPPLEMENT (Reported) Fluticasone Propionate 50 MCG/ACTUATION SPRAY.SUSP 2 SPRAY NASB DAILY ALLERGIES (Reported) Furosemide 40 MG TABLET 1 TAB PO DAILY FLUID RETENTION (Reported) Levocetirizine Dihydrochloride 5 MG TABLET 1 TAB PO DAILY ALLERGIES (Reported ) Lisinopril/Hydrochlorothiazide (Lisinopril-Hctz 10-12.5 MG Tab) 1 EACH TABLET 1 TAB PO DAILY BP (Reported) Metoprolol Tartrate 50 MG TABLET 50 MG PO QPM HEART RATE Metoprolol Tartrate (Lopressor) 100 MG TABLET 1 TAB PO QAM HEART RATE Nystatin (Nystop) 100,000 UNIT/GRAM POWDER 1 MIRANDA TOP PRN SKIN (Reported) Rivaroxaban (Xarelto) 10 MG TABLET 20 MG PO DAILY BLOOD THINNER Rosuvastatin Calcium (Crestor) 10 MG TABLET 1 TAB PO DAILY CHOLESTEROL ( Reported) Current Medications: Current Medications Sig/Manuel Start time Last Medication Dose Route Stop Time Status Admin Atorvastatin Calcium 10 MG 1700 08/31 1700 AC PO Diltiazem HCl 0 .STK-MED ONE 08/30 1411 DC .ROUTE Diltiazem HCl 10 MG ONCE ONE 08/30 1245 DC 08/30 IV PUSH 08/30 1246 1406 Furosemide 20 MG DAILY 08/31 1000 AC IV Furosemide 20 MG ONCE ONE 08/30 1715 DC 08/30 IV 08/30 1716 2038 Furosemide 20 MG 7:30 AM, & 4:30 PM 08/30 1700 DC IV Lidocaine 1 PAT DAILY 08/30 1834 AC EXT Lisinopril 10 MG DAILY 08/30 1715 AC 08/30 PO 2042 Meclizine HCl 0 .STK-MED ONE 08/30 1755 DC PO Meclizine HCl 25 MG ONCE ONE 08/30 1730 DC 08/30 PO 08/30 1731 1758 Metoprolol Tartrate 100 MG QAM 08/31 1000 AC PO Metoprolol Tartrate 50 MG QPM 08/30 2200 AC PO Pantoprazole Sodium 80 MG Q10H 08/30 2200 UNVr Dextrose/Water 100 ML IV Pantoprazole Sodium 40 MG DAILY 08/30 1842 DC 08/30 IV 2043 Past History Travel History Traveled to [place] past 21 day No Medical History Neurological: NONE EENT: NONE Cardiovascular: AFIB, CAD, CHF, hypertension, hyperlipidemia Respiratory: NONE Gastrointestinal: NONE Hepatic: NONE Renal: NONE Musculoskeletal: sciatica Psychiatric: NONE Endocrine: NONE Blood Disorders: NONE Cancer(s): NONE SHIPPING AND RECEIVING ASSISTANT/Reproductive: NONE Surgical History Surgical History: CABG Psychosocial History Where Do You Live? Home Services at Home: Nursing Smoking Status: Unknown If Ever Smoked Review of Systems Review of Systems Constitutional: Reports: malaise, weakness. Denies: fever. EENTM: Denies: icterus, epistaxis. Cardiovascular: Reports: chest pain, edema. Denies: syncope. Respiratory: Reports: short of breath. Denies: cough. GI: Reports: see HPI. Genitourinary: Denies: dysuria, hematuria. Musculoskeletal: Denies: muscle stiffness, neck pain. Skin: Denies: jaundice, lesions (no known liver disease). Neurological/Psychological: Denies: cognitive dysfunction, tremors. Hematologic/Endocrine: Reports: bruising. Denies: bleeding. Exam & Diagnostic Data Vital Signs and I&O Vital Signs Date Time Temp Pulse Resp B/P B/P Pulse O2 O2 Flow FiO2 Mean Ox Delivery Rate 08/30 2041 125 124/84 08/30 1940 97.4 125 18 124/84 93 08/30 1755 98.1 118 18 136/64 95 Room Air 08/30 1659 97.3 119 18 134/58 95 08/30 1406 97.5 140 20 183/63 08/30 1302 Nasal Cannula 08/30 1158 97.5 140 20 183/63 94 Room Air Intake & Output 08/30 1600 08/30 0400 08/29 1600 08/29 0400 08/28 1600 08/28 0400 Intake Total Output Total Balance Patient 300 lb Weight Weight Estimated Measurement Method Physical Exam: Alert and oriented, normal cognition. Markedly obese. Multiple ecchymosis, no jaundice. Sclera anicteric. No oropharyngeal lesions. No adenopathy. Heart irregular rhythm. Lungs with diminished breath sounds bilaterally. Abdomen markedly obese with pannus, abdominal wall edema; umbilical hernia; bowel sounds present, tender lower abdomen in the area of the edema. Extremities bilateral edema. Results Pertinent Lab Results: Laboratory Tests 08/30 08/30 1750 1330 Chemistry Sodium (137 - 145 mmol/L) 137 Potassium (3.5 - 5.1 mmol/L) 4.2 Chloride (98 - 107 mmol/L) 93 L Carbon Dioxide (22 - 30 mmol/L) 30 Anion Gap (5 - 16) 13 BUN (7 - 17 mg/dL) 30 H Creatinine (0.5 - 1.0 mg/dL) 0.9 Estimated GFR (>60 ml/min) > 60 BUN/Creatinine Ratio (7 - 25 %) 33.3 H Glucose (65 - 99 mg/dL) 141 H Calcium (8.4 - 10.2 mg/dL) 9.9 Magnesium (1.6 - 2.3 mg/dL) 2.0 Total Bilirubin (0.2 - 1.3 mg/dL) 0.6 AST (14 - 36 U/L) 30 ALT (9 - 52 U/L) 42 Alkaline Phosphatase (<127 U/L) 99 Troponin I (< 0.11 ng/ml) 0.18 *H 0.05 Ghs-[id number]-Vlkrsfdvxpy Pept (<125 pg/mL) 734 H Total Protein (6.3 - 8.2 g/dL) 7.0 Albumin (3.5 - 5.0 g/dL) 3.9 Globulin (1.9 - 4.2 gm/dL) 3.1 Albumin/Globulin Ratio (1.1 - 2.2 %) 1.3 Coagulation PT (9.4 - 12.5 SEC) 15.1 H INR (0.90 - 1.19) 1.38 H APTT (25 - 37 SEC) 27 Hematology CBC w Diff NO MAN DIFF REQ WBC (4.8 - 10.8 /CUMM) 8.5 RBC (4.20 - 5.40 /CUMM) 2.37 L Hgb (12.0 - 16.0 G/DL) 6.5 *L Hct (37 - 47 %) 20.4 L MCV (81.0 - 99.0 FL) 86.0 MCH (27.0 - 31.0 PG) 27.4 MCHC (33.0 - 37.0 G/DL) 31.9 L RDW (11.5 - 14.5 %) 14.6 H Plt Count (130 - 400 /CUMM) 300 MPV (7.4 - 10.4 FL) 7.2 L Gran % (42.2 - 75.2 %) 74.6 Lymphocytes % (20.5 - 51.1 %) 15.4 L Monocytes % (1.7 - 9.3 %) 8.9 Eosinophils % (0 - 5 %) 0.6 Basophils % (0.0 - 2.0 %) 0.5 Absolute Granulocytes (1.4 - 6.5 /CUMM) 6.4 Absolute Lymphocytes (1.2 - 3.4 /CUMM) 1.3 Absolute Monocytes (0.10 - 0.60 /CUMM) 0.8 H Absolute Eosinophils (0.0 - 0.7 /CUMM) 0.1 Absolute Basophils (0.0 - 0.2 /CUMM) 0 Assessment/Plan Assessment/Recommendations: Occult GI bleeding with possible melena by history, in the setting of anticoagulation and aspirin use. Progressive anemia with significant drop since last hospitalization. This has undoubtedly exacerbated her congestive heart failure. The patient has regurgitation and solid food dysphagia. Rule out esophagitis, neoplasm, etc. Recommendations * Clear liquid diet, nothing by mouth after midnight * IV PPI twice a day * 2 IVs, IV fluids at maintenance rate * Transfuse 2 units of packed red blood cells, and follow-up CBC. Maintain hemoglobin/hematocrit at greater than 8/24 with further transfusion as necessary * Cardiology consultation in the morning * Continue baby aspirin, but hold anticoagulation, pending cardiology evaluation * The patient will benefit from EGD, perhaps tomorrow, but this is not emergent at this time as there is no rapid bleeding (brown stool, guaiac positive). She would benefit from being optimized and cleared from a cardiac standpoint. Copies To: Vee WALTON,Rito Sidhu; Dago WALTON,Virgie Consult Acknowledgment - Thank you for your consult request.
[2017-08-30 22:44] VITALS: BP 124/78
[2017-08-31 08:28] VITALS: BP 110/58
[2017-08-31 08:28] LABS: ABSOLUTE BASOPHIL COUNT 0.1 /CUMM (0.0-0.2); ABSOLUTE EOSINOPHIL COUNT 0.1 /CUMM (0.0-0.7); ABSOLUTE GRANULOCYTE CT 6.5 /CUMM (1.4-6.5); ABSOLUTE LYMPH COUNT 1.5 /CUMM (1.2-3.4); ABSOLUTE MONOCYTE COUNT 0.9 /CUMM (0.10-0.60); BASOPHIL % 0.7 % (0.0-2.0); GRANULOCYTE % 71.8 % (42.2-75.2); HEMATOCRIT 23.9 % (37-47); MEAN CORPUSCULAR HGB 28.4 PG (27.0-31.0); MEAN CORPUSCULAR HGB CONC 32.4 G/DL (33.0-37.0); MEAN CORPUSCULAR VOLUME 87.6 FL (81.0-99.0); MEAN PLATELET VOLUME 7.8 FL (7.4-10.4); PLATELET COUNT 276 /CUMM (130-400); RBC DISTRIBUTION WIDTH 14.6 % (11.5-14.5); RED BLOOD CELL CT 2.73 /CUMM (4.20-5.40)
--- NOTE | 2017-08-31 10:36 | PN- Housestaff ---
Richie WALTON,Shara 08/31/17 1036: Subjective Follow-up For: Severe anemia secondary to GI bleed probably Carolynn loredo with RVR secondary to noncompliance and severe anemia Right lower extremity swelling and tenderness Tele-Events Since Last Visit: Santi loredo, 891 01, QRS 0.1, PVCs Subjective: The patient was seen and examined at bedside, she complains of being hungry as she was n.p.o. at midnight, still endorses mild abdominal pain, reports improvement of her weakness, had troponin was found to be trending up most likely due to demand ischemia Review of Systems Constitutional: Denies: see HPI, chills, diaphoresis, fever. Cardiovascular: Reports: edema, peripheral edema. Denies: chest pain, orthopena, palpitations. Respiratory: Reports: short of breath. Gastrointestinal: Reports: distention, melena. Denies: diarrhea, bowel incontinence, bloody stool. Genitourinary: Denies: no symptoms. Musculoskeletal: Denies: no symptoms. Skin: Denies: no symptoms. Objective Last 24 Hrs of Vital Signs/I&O Vital Signs Date Time Temp Pulse Resp B/P B/P Pulse O2 O2 Flow FiO2 Mean Ox Delivery Rate 08/31 1040 110/58 08/31 0828 98.7 82 18 110/58 94 Room Air 08/31 0000 Room Air 08/30 2250 154 124/78 08/30 2244 97.7 154 21 124/78 94 08/30 2244 97.7 154 21 124/78 94 08/30 2042 125 124/84 08/30 1940 97.4 125 18 124/84 93 08/30 1755 98.1 118 18 136/64 95 Room Air 08/30 1659 97.3 119 18 134/58 95 08/30 1406 97.5 140 20 183/63 08/30 1302 Nasal Cannula 08/30 1158 97.5 140 20 183/63 94 Room Air Intake & Output 08/31 1600 08/31 0800 08/31 0000 Intake Total 520 300 Output Total 150 600 600 Balance -150 -80 -300 Intake, IV 400 Intake, Oral 120 300 Output, Urine 150 600 600 Patient 293 lb Weight Physical Exam General Appearance: Alert, Oriented X3, Cooperative, No Acute Distress HEENT: Atraumatic, PERRLA, EOMI, Mucous Membr. moist/pink Neck: Supple, No JVD, No thryomegaly Cardiovascular: Normal S1, Normal S2, No Murmurs Lungs: Clear to Auscultation Abdomen: Normal Bowel Sounds, Soft, GENERALIZED TENDERNESS Neurological: Normal Speech, Strength at 5/5 X4 Ext, Normal Tone, Sensation Intact Extremities: No Clubbing, No Cyanosis, MULTIPLE SMALL SCABS Vascular: Normal Pulses Assessment/Plan Problem List: 1. Symptomatic anemia 2. GI bleed 3. RANDY (acute kidney injury) 4. Rapid atrial fibrillation Pain Ratin Pain Location: n/a Pain Goal: Remain pain free Pain Plan: PATHWAY Tomorrow's Labs & Rationales: CBC BEP Lázaro Vivar 08/31/17 1420: Attending MD Review Statement Attending Statement Attending MD Statement: examined this patient, discuss w/resident/PA/CLINICAL DOCUMENTATION MANAGER, agreed w/resident/PA/CLINICAL DOCUMENTATION MANAGER, reviewed EMR data (avail), discussed with nursing, discussed with case mgmt Attending Assessment/Plan: Type 2 DE- D/w cardiology. Pt with positive trop secondary to type 2 DE likely secondary to her acute blood loss anemia. cont ot hold xarelot. Pt stopped taking it 2 days. back. Acute blood loss anemia- Hb upto 7.7 from 6.5 after 2 u PRBC transfusion. Will give her one more unit if needed . f/u on H/H serially. GI consult appreciated. Pt awaiting clearance by cardio prior to scope. Acute GI bleed- f/u on scope results. cont on protonix drip. d/w pt the care plan.
--- NOTE | 2017-08-31 11:41 | ECHOCARDIOGRAM REPORT ---
GEORGE MARIANO Age: 77 : 1940 Gender: F Exam Date: 08/31/2017 10:33 Exam Location: 1 [address] Ht (in): 65 Wt (lb): 294 BSA: 2.55 BP: 124 / 78 Ordering Physician: Shanae Urrutia MD Referring Physician: Shanae Urrutia MD Technologist: Jose Armando Alex [facility] Room Number: 174-2 Indications: AFIB/FLUTTER Rhythm: Technical Quality: FINDINGS Left Ventricle Left ventricular cavity size normal. Left ventricular wall thickness mildly increased. No obvious regional wall motion abnormalities. Left ventricular ejection fraction is estimated at > 55 %. Right Ventricle Mild right ventricular dilatation. Normal right ventricular function. Right Atrium Mild right atrial dilatation. Left Atrium Mild left atrial dilatation. Mitral Valve Moderate mitral annular calcification. Aortic Valve Diffuse thickening of the aortic valve cusps with reduced excursion. Aortic valve not well visualized. Tricuspid Valve Tricuspid valve not well visualized, grossly normal. Unable to estimate the right ventricular systolic pressure. Pulmonic Valve Pulmonic valve not well visualized. Pericardium No pericardial effusion. Great Vessels Normal size aortic root. CONCLUSIONS Limited study performed. Left ventricular cavity size normal. Left ventricular wall thickness mildly increased. No obvious regional wall motion abnormalities. Left ventricular ejection fraction is estimated at > 55 %. Mild right ventricular dilatation. Normal right ventricular function. Mild right atrial dilatation. Mild left atrial dilatation. Diffuse thickening of the aortic valve cusps with reduced excursion. Aortic valve not well visualized. No pericardial effusion. Nikita Figueroa M.D. (Electronically Signed) Final Date: 31 August 2017 11:40 MEASUREMENTS (Male / Female) Normal Values 2D ECHO LV Diastolic Diameter PLAX 5.8 cm 4.2 - 5.9 / 3.9 - 5.3 cm LV Systolic Diameter PLAX 4.3 cm 2.1 - 4.0 cm LV Fractional Shortening PLAX 25.9 % 25 - 46 % LV Ejection Fraction 2D Teich 50.1 % IVS Diastolic Thickness 1.2 cm LVPW Diastolic Thickness 1.2 cm LV Relative Wall Thickness 0.4
--- NOTE | 2017-08-31 12:22 | Cons- Cardiology ---
General Information and HPI Consulting Request Date of Consult: 08/31/17 Requested By: Lázaro Vivar MD Reason for Consult: CAD, A. fib, elevated troponin Source of Information: patient, old records History of Present Illness: The patient is a 77-year-old female with a history of coronary disease status post coronary bypass surgery in 2003 with RICHARDSON to the LAD, saphenous vein grafts to the OM and PDA, peripheral arterial disease, hypertension, aortic stenosis, obesity, recent onset heart failure with preserved ejection fraction, recent onset atrial fibrillation and started on Xarelto, hyperlipidemia, hypertension, and sciatica who presents with worsening dyspnea and weakness since her recent discharge when she was started on anticoagulation for new onset atrial fibrillation; reports the symptoms are moderate and occur at both rest and with exertion; not associated with any significant chest pain or palpitations. Denies headache, slurring of speech, or focal weakness. Denies subjective fever. She has had black stools; denies any hematemesis. Was noted to have a mildly elevated troponin on presentation. Allergies/Medications Allergies: Coded Allergies: Penicillins (Intermediate, NAUSEA, VOMITING 07/12/17) amoxicillin (Intermediate, NAUSEA, VOMITING 07/12/17) hydrocodone (Intermediate, NAUSEA, VOMITING 07/12/17) oxycodone (Intermediate, NAUSEA, VOMITING 07/12/17) Home Med List: Acetaminophen (Tylenol Extra Strength) 500 MG TABLET 2 TAB PO PRN PAIN ( Reported) Aspirin (Ecotrin*) 81 MG TABLET.DR 1 TAB PO DAILY HEART HEALTH (Reported) Cyanocobalamin (Vitamin B-12) (Cyanocobalamin Injection) 1,000 MCG/ML VIAL 1 ML IM Q30D SUPPLEMENT (Reported) Fluticasone Propionate 50 MCG/ACTUATION SPRAY.SUSP 2 SPRAY NASB DAILY ALLERGIES (Reported) Furosemide 40 MG TABLET 1 TAB PO DAILY FLUID RETENTION (Reported) Levocetirizine Dihydrochloride 5 MG TABLET 1 TAB PO DAILY ALLERGIES (Reported ) Lisinopril/Hydrochlorothiazide (Lisinopril-Hctz 10-12.5 MG Tab) 1 EACH TABLET 1 TAB PO DAILY BP (Reported) Metoprolol Tartrate 50 MG TABLET 50 MG PO QPM HEART RATE Metoprolol Tartrate (Lopressor) 100 MG TABLET 1 TAB PO QAM HEART RATE Nystatin (Nystop) 100,000 UNIT/GRAM POWDER 1 MIRANDA TOP PRN SKIN (Reported) Rivaroxaban (Xarelto) 10 MG TABLET 20 MG PO DAILY BLOOD THINNER Rosuvastatin Calcium (Crestor) 10 MG TABLET 1 TAB PO DAILY CHOLESTEROL ( Reported) Current Medications: Current Medications Sig/Manuel Start time Last Medication Dose Route Stop Time Status Admin Aspirin 81 MG DAILY 08/31 1000 AC PO Atorvastatin Calcium 10 MG 1700 08/31 1700 AC PO Dextrose/Sodium 1,000 ML Q20H 08/31 0915 AC 08/31 Chloride IV 1038 Diltiazem HCl 0 .STK-MED ONE 08/30 1411 DC .ROUTE Diltiazem HCl 10 MG ONCE ONE 08/30 1245 DC 08/30 IV PUSH 08/30 1246 1406 Furosemide 20 MG DAILY 08/31 1000 AC IV Furosemide 20 MG ONCE ONE 08/30 1715 DC 08/30 IV 08/30 171 2038 Furosemide 20 MG 7:30 AM, & 4:30 PM 08/30 1700 DC IV Lidocaine 1 PAT DAILY 08/30 1834 AC EXT Lisinopril 10 MG DAILY 08/30 1715 AC 08/30 PO 2042 Meclizine HCl 0 .STK-MED ONE 08/30 1755 DC PO Meclizine HCl 25 MG ONCE ONE 08/30 1730 DC 08/30 PO 08/30 1731 1758 Metoprolol Tartrate 100 MG QAM 08/31 1000 AC 08/31 PO 1040 Metoprolol Tartrate 50 MG QPM 08/30 2200 AC 08/30 PO 2250 Pantoprazole Sodium 80 MG Q10H 08/30 2300 AC 08/31 Sodium Chloride 100 ML IV 1038 Pantoprazole Sodium 40 MG DAILY 08/30 1842 DC 08/30 IV 2043 Review of Systems Review of Systems: As per above HPI. The remainder of a 10 point review of systems was reviewed and was otherwise negative. Past History Travel History Traveled to [place] past 21 day No Medical History Neurological: NONE EENT: NONE Cardiovascular: AFIB, CAD, CHF, hypertension, hyperlipidemia Respiratory: NONE Gastrointestinal: NONE Hepatic: NONE Renal: NONE Musculoskeletal: sciatica Psychiatric: NONE Endocrine: NONE Blood Disorders: NONE Cancer(s): NONE STEAM BOX OPERATOR/Reproductive: NONE Surgical History Surgical History: CABG Psychosocial History Where Do You Live? Home Services at Home: Nursing Smoking Status: Unknown If Ever Smoked Exam & Diagnostic Data Vital Signs and I&O Vital Signs Date Time Temp Pulse Resp B/P B/P Pulse O2 O2 Flow FiO2 Mean Ox Delivery Rate 08/31 1040 110/58 08/31 0828 98.7 82 18 110/58 94 Room Air 08/31 0000 Room Air 08/30 2250 154 124/78 08/30 2244 97.7 154 21 124/78 94 08/30 2244 97.7 154 21 124/78 94 08/30 2042 125 124/84 08/30 1940 97.4 125 18 124/84 93 08/30 1755 98.1 118 18 136/64 95 Room Air 08/30 1659 97.3 119 18 134/58 95 08/30 1406 97.5 140 20 183/63 08/30 1302 Nasal Cannula Intake & Output 08/31 1600 08/31 0800 08/31 0000 08/30 1600 08/30 0800 08/30 0000 Intake Total 520 300 Output Total 150 600 600 Balance -150 -80 -300 Intake, IV 400 Intake, Oral 120 300 Output, Urine 150 600 600 Patient 293 lb 300 lb Weight Weight Estimated Measurement Method Physical Exam: General: no apparent distress. Alert. Eyes: No obvious scleral icterus. HEENT: No jugular venous distention or abnormal jugular venous pulsations. Cardiovascular: Normal intensity S1/S2. Irregular, one out of 6 systolic murmur Respiratory: Lungs clear to auscultation bilaterally. Abdomen: Soft, nontender with no guarding or rebound tenderness. Musculoskeletal: No clubbing or cyanosis noted, trace to 1+ bilateral lower extremity edema Skin: Warm Neurologic: No gross focal deficits noted. Lymph: No gross lymphadenopathy. Labs/Vincent Results: Laboratory Tests 08/31 08/31 08/30 0646 0030 1750 Chemistry Sodium (137 - 145 mmol/L) 138 Potassium (3.5 - 5.1 mmol/L) 4.5 Chloride (98 - 107 mmol/L) 96 L Carbon Dioxide (22 - 30 mmol/L) 32 H Anion Gap (5 - 16) 9 BUN (7 - 17 mg/dL) 29 H Creatinine (0.5 - 1.0 mg/dL) 1.0 Estimated GFR (>60 ml/min) 53 L BUN/Creatinine Ratio (7 - 25 %) 29.0 H Phosphorus (2.5 - 4.5 mg/dL) 3.5 Magnesium (1.6 - 2.3 mg/dL) 2.0 Troponin I (< 0.11 ng/ml) 0.57 *H 0.51 *H 0.18 *H Hematology CBC w Diff NO MAN DIFF REQ WBC (4.8 - 10.8 /CUMM) 9.0 RBC (4.20 - 5.40 /CUMM) 2.73 L Hgb (12.0 - 16.0 G/DL) 7.7 L Hct (37 - 47 %) 23.9 L MCV (81.0 - 99.0 FL) 87.6 MCH (27.0 - 31.0 PG) 28.4 MCHC (33.0 - 37.0 G/DL) 32.4 L RDW (11.5 - 14.5 %) 14.6 H Plt Count (130 - 400 /CUMM) 276 MPV (7.4 - 10.4 FL) 7.8 Gran % (42.2 - 75.2 %) 71.8 Lymphocytes % (20.5 - 51.1 %) 16.9 L Monocytes % (1.7 - 9.3 %) 9.6 H Eosinophils % (0 - 5 %) 1.0 Basophils % (0.0 - 2.0 %) 0.7 Absolute Granulocytes (1.4 - 6.5 /CUMM) 6.5 Absolute Lymphocytes (1.2 - 3.4 /CUMM) 1.5 Absolute Monocytes (0.10 - 0.60 /CUMM) 0.9 H Absolute Eosinophils (0.0 - 0.7 /CUMM) 0.1 Absolute Basophils (0.0 - 0.2 /CUMM) 0.1 08/30 1330 Chemistry Sodium (137 - 145 mmol/L) 137 Potassium (3.5 - 5.1 mmol/L) 4.2 Chloride (98 - 107 mmol/L) 93 L Carbon Dioxide (22 - 30 mmol/L) 30 Anion Gap (5 - 16) 13 BUN (7 - 17 mg/dL) 30 H Creatinine (0.5 - 1.0 mg/dL) 0.9 Estimated GFR (>60 ml/min) > 60 BUN/Creatinine Ratio (7 - 25 %) 33.3 H Glucose (65 - 99 mg/dL) 141 H Calcium (8.4 - 10.2 mg/dL) 9.9 Magnesium (1.6 - 2.3 mg/dL) 2.0 Total Bilirubin (0.2 - 1.3 mg/dL) 0.6 AST (14 - 36 U/L) 30 ALT (9 - 52 U/L) 42 Alkaline Phosphatase (<127 U/L) 99 Troponin I (< 0.11 ng/ml) 0.05 Bwl-H-Guliujesklf Pept (<125 pg/mL) 734 H Total Protein (6.3 - 8.2 g/dL) 7.0 Albumin (3.5 - 5.0 g/dL) 3.9 Globulin (1.9 - 4.2 gm/dL) 3.1 Albumin/Globulin Ratio (1.1 - 2.2 %) 1.3 Coagulation PT (9.4 - 12.5 SEC) 15.1 H INR (0.90 - 1.19) 1.38 H APTT (25 - 37 SEC) 27 Hematology CBC w Diff NO MAN DIFF REQ WBC (4.8 - 10.8 /CUMM) 8.5 RBC (4.20 - 5.40 /CUMM) 2.37 L Hgb (12.0 - 16.0 G/DL) 6.5 *L Hct (37 - 47 %) 20.4 L MCV (81.0 - 99.0 FL) 86.0 MCH (27.0 - 31.0 PG) 27.4 MCHC (33.0 - 37.0 G/DL) 31.9 L RDW (11.5 - 14.5 %) 14.6 H Plt Count (130 - 400 /CUMM) 300 MPV (7.4 - 10.4 FL) 7.2 L Gran % (42.2 - 75.2 %) 74.6 Lymphocytes % (20.5 - 51.1 %) 15.4 L Monocytes % (1.7 - 9.3 %) 8.9 Eosinophils % (0 - 5 %) 0.6 Basophils % (0.0 - 2.0 %) 0.5 Absolute Granulocytes (1.4 - 6.5 /CUMM) 6.4 Absolute Lymphocytes (1.2 - 3.4 /CUMM) 1.3 Absolute Monocytes (0.10 - 0.60 /CUMM) 0.8 H Absolute Eosinophils (0.0 - 0.7 /CUMM) 0.1 Absolute Basophils (0.0 - 0.2 /CUMM) 0 Diagnostic Data EKG Results Tracing was personally reviewed and shows atrial fibrillation with rapid ventricular response rate and PVC versus aberrant conduction CXR Results No acute pulmonary disease. Cardiomegaly. Other Results A tracings were personally reviewed show atrial fibrillation with grossly controlled ventricular response rate Repeat limited echo done this morning Limited study performed. Left ventricular cavity size normal. Left ventricular wall thickness mildly increased. No obvious regional wall motion abnormalities. Left ventricular ejection fraction is estimated at > 55 %. Mild right ventricular dilatation. Normal right ventricular function. Mild right atrial dilatation. Mild left atrial dilatation. Diffuse thickening of the aortic valve cusps with reduced excursion. Aortic valve not well visualized. No pericardial effusion. Nikita Figueroa M.D. (Electronically Signed) Final Date: 31 August 2017 11:40 Assessment/Plan Assessment/Plan 1. Recently diagnosed atrial fibrillation, was started on Xarelto 2. Symptomatic anemia likely due to GI bleeding 3. Hypertension 4. Coronary disease status post coronary bypass surgery in 2003 with RICHARDSON to the LAD, saphenous vein grafts to the OM and PDA 5. Obesity 6. Chronic sciatic pain 7. Elevated troponin likely due to severe anemia with supply/demand mismatch 8. Hyperlipidemia 9. Diastolic heart failure, compensated 10. Aortic stenosis The patient presents with symptoms consistent with worsening anemia likely due to GI bleeding; her Xarelto is temporarily being held pending further GI evaluation. A repeat limited echo done this morning shows no evidence of acute wall motion abnormality in the mild troponin elevation is likely due to the severe anemia and had not due to acute coronary syndrome. She does not appear to be in decompensated congestive heart failure. At this time she can proceed with the endoscopy at mildly elevated cardiac risk based on her cardiac history. She is currently hemodynamically stable. Vernon Figueroa MD [facility] Consult Acknowledgment - Thank you for your consult request.
--- NOTE | 2017-08-31 16:10 | Proc Note Endoscopy ---
Endoscopy Procedure Medical History: unchanged Mental Status: alert/oriented Heart/Lung Eval Prior to Sedation: within normal limits Candidate for Sedation? Yes Procedure Date: 08/31/17 Procedure Type: EGD w/biopsy Metal Buggy Operator: MD Juarez Deborah E. ASA Classification: III Indications: 1. Melena 2. Acute Blood Loss Anemia Instrument: diagnostic gastroscope Meds Received: MAC Patient's Tolerance: good Complications: none Extent Reached: second part of duodenum Procedure: Note: Informed consent was obtained prior to procedure. Risks and benefits of procedure were discussed with patient. Potential complications discussed included perforation, bleeding, abdominal pain, and adverse reaction to medications. It was explained that iany or all of these complications could result in the need for extended hospitalization, emergency surgery, transfusion of packed red blood cells (with the risk of HIV or hepatitis virus), intubation with mechanical ventilation, and possible need for antibiotics. It was further explained that an existing tumor polyp or mucosal abnormality might not be identified at the time of the procedure thus resulting in a missed opportunity for early diagnosis and treatment of a gastrointestinal malignancy or disease with possible interval development of a gastrointestinal cancer or other disease with possible worsening of clinical condition in the interval between endoscopies. It was also discussed that complications are not limited to those listed above. Possible alternatives to endoscopic treatment or evaluation were discussed. All questions were answered. Continuous EKG and blood pressure monitors were attached. Supplemental oxygen was provided with O2 Sat monitoring. Patient was placed in the left lateral decubitus position. A surgical timeout was performed. All persons in the room were identified. All concerns were expressed and answered. A bite block was placed in the mouth and sedation was administered by anesthesia and titrated to comfort prior to starting the procedure. The Olympus upper endoscope was advanced under direct vision to the level of the third portion of the duodenum. Esophagus: The esophagus had a normal mucosal vascular pattern throughout its entirety. The GE junction was identified and was normal. The Z line was located at 40 cm from the incisors and was nondisplaced Stomach: The stomach had a normal mucosal and vascular pattern throughout its entirety. Retroflexed view of the cardiofundic region revealed a normal mucosal and vascular pattern. There were normal rugae and normal distensibility. The pylorus was patent and easily intubated. Duodenum: The duodenum was fully examined from bulb down to the third portion. There was a normal mucosal vascular pattern throughout. Given Anemia, biopsies were obtained from D1, D2 and the duodenal bulb to rule out celiac disease. Over 6 separate bites were obtained. With the endoscope in the forward-viewing position, it was slowly withdrawn and all areas were re-inspected and findings are as described previously. Patient tolerated the procedure well. EBL: Minimal Specimens Removed: D1, D2 and the duodenal bulb to rule out celiac disease. Findings: Normal upper endoscopy Impression: Normal upper endoscopy. No etiology for patient's acute GI blood loss was found on upper endoscopy. Recommendations: 1. Patient may have regular cardiac/diabetic diet. 2. Patient will need colonoscopy for evaluation of GI blood loss. This can be done on Sunday morning, however if patient is stable, it can be done as an outpatient with follow-up by me. 3. Continue to follow serial H&H
--- NOTE | 2017-08-31 16:19 | Patient Discharge Instructions ---
Discharge Instructions General Discharge Information You were seen/treated for: Severe anemia secondary to GI bleed probably Xadiana Marino. fib with RVR secondary to noncompliance and severe anemia Right lower extremity swelling and tenderness Special Instructions: 1please follow-up with your PCP in 1 week of discharge 2please follow-up with your bar gauger and lubricator tender in 1 week of discharge for colonoscopy to rule out colon cancer 3please get CBCs checked in 1 week of discharge 4please come back to the ED if you feel increasingly weak or have active bleeding or black stool 5please follow-up with her power manager in 1 week of discharge Diet Continue normal diet: Yes Acute Coronary Syndrome Inclusion Criteria At DC or during hospital stay patient has or had the following: ACS DIAGNOSIS No Discharge Core Measures Meds if any: Prescribed or Continued at Discharge Meds if any: NOT Prescribed or Continued at Discharge Congestive Heart Failure Inclusion Criteria At DC or during hospital stay patient has or had the following: CHF DIAGNOSIS No Discharge Core Measures Meds if any: Prescribed or Continued at Discharge Meds if any: NOT Prescribed or Continued at Discharge Cerebrovascular accident Inclusion Criteria At DC or during hospital stay patient has or had the following: CVA/TIA Diagnosis No Discharge Core Measures Meds if any: Prescribed or Continued at Discharge Meds if any: NOT Prescribed or Continued at Discharge Venous thromboembolism Inclusion Criteria VTE Diagnosis No VTE Type NONE VTE Confirmed by (Test) NONE Discharge Core Measures - Per Current guidelines, there needs to be overlap - treatment for the first 5 days of Warfarin therapy. - If discharged on Warfarin prior to 5 days of - overlap therapy, the patient will need to be - assessed for post discharge needs including - *Post discharge parental anticoagulation - *Warfarin and/or parental anticoagulation education - *Follow up date to check INR post discharge At least 5 days overlap therapy as Inpatient No Meds if any: Prescribed or Continued at Discharge Note: Overlap Therapy is Warfarin and Anticoagulant Meds if any: NOT Prescribed or Continued at Discharge
[2017-08-31 21:09] LABS: ABSOLUTE BASOPHIL COUNT 0.1 /CUMM (0.0-0.2); ABSOLUTE EOSINOPHIL COUNT 0.1 /CUMM (0.0-0.7); ABSOLUTE GRANULOCYTE CT 6.5 /CUMM (1.4-6.5); ABSOLUTE LYMPH COUNT 1.6 /CUMM (1.2-3.4); ABSOLUTE MONOCYTE COUNT 0.9 /CUMM (0.10-0.60); BASOPHIL % 0.6 % (0.0-2.0); EOSINOPHIL % 1.3 % (0-5); GRANULOCYTE % 71.1 % (42.2-75.2); HEMATOCRIT 27.5 % (37-47); MEAN CORPUSCULAR HGB 28.6 PG (27.0-31.0); MEAN CORPUSCULAR VOLUME 86.8 FL (81.0-99.0); MEAN PLATELET VOLUME 7.7 FL (7.4-10.4); PLATELET COUNT 277 /CUMM (130-400); RBC DISTRIBUTION WIDTH 14.9 % (11.5-14.5); RED BLOOD CELL CT 3.16 /CUMM (4.20-5.40); WHITE BLOOD CELL COUNT 9.2 /CUMM (4.8-10.8)
[2017-08-31 21:50] VITALS: BP 122/84
[2017-08-31 23:12] VITALS: BP 106/60
[2017-09-01 06:40] VITALS: BP 100/70
--- NOTE | 2017-09-01 08:37 | PN- Housestaff ---
Jia Deleon 09/01/17 0837: Subjective Follow-up For: Severe anemia secondary to GI bleed probably Xarelto A. fib with RVR secondary to noncompliance and severe anemia Right lower extremity swelling and tenderness Tele-Events Since Last Visit: A-fib under rate control HR <100 overnight. Subjective: No overnight event. Patient c/o her bed being "crooked". Acknowledged she will go for colonoscopy on Sunday. No other specific complaint. Breahing under 1LNC Review of Systems Constitutional: Reports: see HPI. Objective Last 24 Hrs of Vital Signs/I&O Vital Signs Date Time Temp Pulse Resp B/P B/P Pulse O2 O2 Flow FiO2 Mean Ox Delivery Rate 09/01 0640 98.4 73 20 100/70 91 08/31 2312 97.9 101 18 106/60 94 Room Air 09/01 2151 83 122/84 08/31 2152 83 122/84 08/31 2150 83 122/84 08/31 1040 110/58 Intake & Output 09/01 1600 09/01 0800 09/01 0000 Intake Total 400 Output Total 250 300 Balance -250 100 Intake, IV 40 Intake, Oral 360 Output, Urine 250 300 Patient 131.173 kg Weight Physical Exam General Appearance: Alert, Oriented X3, Cooperative, No Acute Distress Cardiovascular: Irregular rate under control Lungs: Clear to Auscultation Abdomen: Normal Bowel Sounds, Soft, No Tenderness Neurological: Normal Speech Extremities: No Edema, Normal Pulses, multiple small scabs Current Medications: Current Medications Sig/Manuel Start time Last Medication Dose Route Stop Time Status Admin Acetaminophen 650 MG .STK-MED ONE 08/31 2136 DC PO 08/31 2137 Aspirin 81 MG DAILY 08/31 1000 AC PO Atorvastatin Calcium 10 MG 1700 08/31 1700 DC PO Atorvastatin Calcium 10 MG 1700 08/31 1700 AC 08/31 PO 1801 Dextrose/Sodium 1,000 ML Q20H 08/31 0915 DC 08/31 Chloride IV 1038 Furosemide 20 MG DAILY 08/31 1000 AC 08/31 IV 1716 Lidocaine 1 PAT DAILY 08/30 1834 AC EXT Lisinopril 10 MG 2200 08/31 2200 AC 08/31 PO 2152 Lisinopril 10 MG DAILY 08/30 1715 DC 08/30 PO 2042 Metoprolol Tartrate 100 MG QAM 08/31 1000 AC 08/31 PO 1040 Metoprolol Tartrate 50 MG QPM 08/30 2200 AC 08/31 PO 2152 Pantoprazole Sodium 80 MG Q10H 08/30 2300 AC 09/01 Sodium Chloride 100 ML IV 0526 Last 24 Hrs of Lab/Vincent Results Last 24 Hrs of Labs/Mics: Laboratory Tests 09/01/17 0635: Sodium Pending, Potassium Pending, Chloride Pending, Carbon Dioxide Pending, Anion Gap Pending, BUN Pending, Creatinine Pending, BUN/Creatinine Ratio Pending , CBC w Diff Pending, WBC Pending, RBC Pending, Hgb Pending, Hct Pending, MCV Pending, MCH Pending, MCHC Pending, RDW Pending, Plt Count Pending, MPV Pending 08/31/170: Troponin I 0.26 *H 08/31/172009: CBC w Diff NO MAN DIFF REQ, RBC 3.16 L, MCV 86.8, MCH 28.6, MCHC 33.0, RDW 14.9 H, MPV 7.7, Gran % 71.1, Lymphocytes % 17.1 L, Monocytes % 9.9 H, Eosinophils % 1.3, Basophils % 0.6, Absolute Granulocytes 6.5, Absolute Lymphocytes 1.6, Absolute Monocytes 0.9 H, Absolute Eosinophils 0.1, Absolute Basophils 0.1 Assessment/Plan Assessment: Patient is a 77-year-old female with multiple medical problems including CAD, CABG 3 (2003), hyperlipidemia, hypertension, recently diagnosed as having atrial fibrillation leading to CHF currently on on Xarelto she presented with gradually progressive shortness of breath along with. Pressure in the chest. On examination her lungs were clear but still having bilateral lower extremity edema along with weight gain(280 to 300lb). She does not have controlled on fluid intake, and she does not able to tolerate her medication and she was thinking that they are making to stop taking metoprolol and Xarelto. She was also having black stools. At the time of admission she found to be in atrial fibrillation with rapid ventricular rate, with severe anemia of hemoglobin 6.5( baseline 10.5). Her stool for occult blood was positive. It seems she had GI bleed secondary to anticoagulant are possible other causes including ulcers. Severe anemia and noncompliance to medication lead to see for tachycardia and the chest pain. We will admit the patient to telemetry floor will obtain cardiology and gastroenterology recommendation. We will start patient on clear liquid and keep n.p.o. from the med night for possible upper GI endoscopy. We will transfuse HER-2 units of blood with the goal of hemoglobin more than 8 and give Lasix in between as needed. Plan - Severe anemia secondary to GI bleed probably Xarelto and will rule out other possibilities * s/p 3U PRBC, currently on lasix 20mg IV qd * serial troponins peaked at 0.57 then trended down to 0.26, and EKGs * Currently CC2 diabetic diet * No signs of bleeding overnight. * restarted ASA 81mg, continued holding Xarelto. * Hgb stablized at 8.5 on latest lab. * EGD normal without active bleeding, pending colonoscopy on Sunday. * If patient gets unstable please call GI stat. Atrial fibrillation with rapid ventricular rate probably secondary to noncompliance and severe anemia * We will continue her home medication including tablet metoprolol 100 mg in the a.m. and tablet metoprolol 50 mg in p.m. * Injection Lasix 20 mg IV daily and as needed * Continue hold Xarelto. Shortness of breath probably secondary to severe anemia with baseline history of CHF * Strict intake output charting * Reduce salt intake * Keep head end of the bed elevated * Cardio recommended that mild troponin elevation was likely due to the severe anemia and had not due to acute coronary syndrome. Right lower extremity swelling and tenderness - Although she was on Xarelto, she was not able to tolerate so we are not sure for compliance. * Continue holding xarelto. Chronic medical condition -hypertension, hyperlipidemia, chronic back pain * We will continue on home medication * Avoid NSAIDs CODE STATUS -DNR/DNI Diet - CC2, will keep NPO on Sunday midnight DVT prophylaxis -Alps, avoid anticoagulant and blood treatment Problem List: 1. Symptomatic anemia 2. GI bleed Pain Ratin Pain Location: NA Pain Goal: Remain pain free Pain Plan: see AP Tomorrow's Labs & Rationales: CBC/BEP Estefani WALTON,Latonya 09/01/17 1158: Attending MD Review Statement Attending Statement Attending MD Statement: examined this patient, discuss w/resident/PA/WIRE GALVANIZER, agreed w/resident/PA/WIRE GALVANIZER, reviewed EMR data (avail), discussed with nursing, discussed with case mgmt, amended to note Attending Assessment/Plan: Patient seen and examined. Resting comfortably not in any acute distress. No issues overnight reported by nursing staff. She remains in atrial fibrillation on monitor with no events overnight. This morning she denies any chest pain or palpitations. Denies nausea vomiting. Denies abdominal pain. She denies any black or bloody stools. She has received a total of 3 units of blood during this admission. Last units of blood was obtained yesterday. She did have a drop in her hemoglobin from 9.1 yesterday to 8.5 today. Blood pressure is borderline. She is not tachycardic. She is noted to have mild renal insufficiency. Recommendations: -Hold lisinopril. -Repeat CBCs in a.m. Transfuse to keep hemoglobin level greater than 7. -Mobilize patient as tolerated. -If hypotension worsens recommend reassessing her hemoglobin level. -Recommend to 250 cc bolus and reevaluating her blood pressure and serum chemistry in a.m.
[2017-09-01 09:21] LABS: ABSOLUTE BASOPHIL COUNT 0.1 /CUMM (0.0-0.2); ABSOLUTE EOSINOPHIL COUNT 0.2 /CUMM (0.0-0.7); ABSOLUTE LYMPH COUNT 1.4 /CUMM (1.2-3.4); ABSOLUTE MONOCYTE COUNT 0.8 /CUMM (0.10-0.60); BASOPHIL % 0.8 % (0.0-2.0); EOSINOPHIL % 2.5 % (0-5); GRANULOCYTE % 70.1 % (42.2-75.2); MEAN CORPUSCULAR HGB 28.3 PG (27.0-31.0); MEAN CORPUSCULAR HGB CONC 32.7 G/DL (33.0-37.0); MEAN CORPUSCULAR VOLUME 86.7 FL (81.0-99.0); PLATELET COUNT 229 /CUMM (130-400); RBC DISTRIBUTION WIDTH 14.7 % (11.5-14.5); RED BLOOD CELL CT 3.01 /CUMM (4.20-5.40); WHITE BLOOD CELL COUNT 8.5 /CUMM (4.8-10.8)
[2017-09-01 14:34] VITALS: BP 100/62
--- NOTE | 2017-09-01 17:30 | PN- Gastroenterology ---
Assessment/Plan GI Assessment/Recommendations: ASSESSMENT: 1. Acute Blood Loss Anemia 2. Chronic Use Anti-Thrombotic Agent 3. Atrial Fibrillation 4. Obesity RECOMMENDATIONS: 1. Colonoscopy on Sunday 2 Clear Liquids beginning after dinner tonight 3. Dulcolax 10 mg at hs tonight 4 5:00 p.m. tomorrow 2 liters of PEG (Go-Lytely) 5. Dulcolax 5-10 mg at HS tomorrow night 6. 5 a.m. Sunday Morning 2 liters of PEG (Go-Lytely, then NPO afterwards) Subjective Subjective: Patient without complaint of nausea vomiting abdominal pain. Melena nor bright red blood per rectum. Results of EGD unrevealing with respect to cause of severe anemia. Patient has not had Baseline screening colonoscopy. Is agreeable to colonoscopy on Sunday. To ensure adequate preparation have discussed additional preparation with stimulant laxatives. No complaints of chest pain or shortness of breath. Review of Systems Constitutional: Reports: no symptoms. Cardiovascular: Reports: edema, peripheral edema. Denies: chest pain. Respiratory: Denies: short of breath. Gastrointestinal: Reports: no symptoms. Neurological/Psychological: Reports: no symptoms. Objective Vital Signs and I&Os Vital Signs Date Time Temp Pulse Resp B/P B/P Pulse O2 O2 Flow FiO2 Mean Ox Delivery Rate 09/01 1434 97.7 78 20 100/62 93 Room Air 09/01 0640 98.4 73 20 100/70 91 08/31 2312 97.9 101 18 106/60 94 Room Air 08/31 2152 83 122/84 08/31 215 83 122/84 08/31 215 83 122/84 Intake & Output 09/01 1600 09/01 0400 08/31 1600 08/31 0400 08/30 1600 08/30 0400 Intake Total 480 400 870 300 Output Total 250 300 900 600 Balance 230 100 -30 -300 Intake, Blood 150 Product Intake, IV 40 600 Intake, Oral 480 360 120 300 Output, Urine 250 300 900 600 Patient 289 lb 293 lb 300 lb Weight Weight Estimated Measurement Method Physical Exam General Appearance: alert, awake Respiratory: normal breath sounds, lungs clear Cardiovascular: irregularly irregular Abdomen: normal bowel sounds, soft, non-tender, no organomegaly Extremities: 2+ pretibial edema Neurologic/Psychiatric: no motor/sensory deficits, awake, alert, oriented x 3, normal mood/affect Current Medications: Current Medications Sig/Manuel Start time Last Medication Dose Route Stop Time Status Admin Acetaminophen 650 MG .STK-MED ONE 08/317 DC PO 08/31 213 Aspirin 81 MG DAILY 08/31 1000 AC 09/01 PO 1020 Atorvastatin Calcium 10 MG 1700 08/31 1700 AC 08/31 PO 1801 Dextrose/Sodium 1,000 ML Q20H 08/31 0915 DC 08/31 Chloride IV 1038 Furosemide 20 MG DAILY 08/31 1000 AC 08/31 IV 1716 Lidocaine 1 PAT DAILY 08/30 1834 AC EXT Lisinopril 10 MG 2200 08/31 2200 DC 08/31 PO 2152 Metoprolol Tartrate 100 MG QAM 08/31 1000 AC 08/31 PO 1040 Metoprolol Tartrate 50 MG QPM 08/30 2200 AC 08/31 PO 2152 Pantoprazole Sodium 80 MG Q10H 08/30 2300 AC 09/01 Sodium Chloride 100 ML IV 0526 Sodium Chloride 250 ML BOLUS ONE 09/01 1215 DC IV 09/01 1314 Results Pertinent Lab Results: Laboratory Tests 09/01 08/31 0635 2140 Chemistry Sodium (137 - 145 mmol/L) 138 Potassium (3.5 - 5.1 mmol/L) 3.8 Chloride (98 - 107 mmol/L) 97 L Carbon Dioxide (22 - 30 mmol/L) 32 H Anion Gap (5 - 16) 9 BUN (7 - 17 mg/dL) 35 H Creatinine (0.5 - 1.0 mg/dL) 1.2 H Estimated GFR (>60 ml/min) 43 L BUN/Creatinine Ratio (7 - 25 %) 29.2 H Troponin I (< 0.11 ng/ml) 0.26 *H Hematology CBC w Diff NO MAN DIFF REQ WBC (4.8 - 10.8 /CUMM) 8.5 RBC (4.20 - 5.40 /CUMM) 3.01 L Hgb (12.0 - 16.0 G/DL) 8.5 L Hct (37 - 47 %) 26.0 L MCV (81.0 - 99.0 FL) 86.7 MCH (27.0 - 31.0 PG) 28.3 MCHC (33.0 - 37.0 G/DL) 32.7 L RDW (11.5 - 14.5 %) 14.7 H Plt Count (130 - 400 /CUMM) 229 MPV (7.4 - 10.4 FL) 8.0 Gran % (42.2 - 75.2 %) 70.1 Lymphocytes % (20.5 - 51.1 %) 16.7 L Monocytes % (1.7 - 9.3 %) 9.9 H Eosinophils % (0 - 5 %) 2.5 Basophils % (0.0 - 2.0 %) 0.8 Absolute Granulocytes (1.4 - 6.5 /CUMM) 6.0 Absolute Lymphocytes (1.2 - 3.4 /CUMM) 1.4 Absolute Monocytes (0.10 - 0.60 /CUMM) 0.8 H Absolute Eosinophils (0.0 - 0.7 /CUMM) 0.2 Absolute Basophils (0.0 - 0.2 /CUMM) 0.1 08/31 0646 Chemistry Sodium (137 - 145 mmol/L) 138 Potassium (3.5 - 5.1 mmol/L) 4.5 Chloride (98 - 107 mmol/L) 96 L Carbon Dioxide (22 - 30 mmol/L) 32 H Anion Gap (5 - 16) 9 BUN (7 - 17 mg/dL) 29 H Creatinine (0.5 - 1.0 mg/dL) 1.0 Estimated GFR (>60 ml/min) 53 L BUN/Creatinine Ratio (7 - 25 %) 29.0 H Phosphorus (2.5 - 4.5 mg/dL) 3.5 Magnesium (1.6 - 2.3 mg/dL) 2.0 Troponin I (< 0.11 ng/ml) 0.57 *H Hematology CBC w Diff NO MAN DIFF REQ NO MAN DIFF REQ WBC (4.8 - 10.8 /CUMM) 9.2 9.0 RBC (4.20 - 5.40 /CUMM) 3.16 L 2.73 L Hgb (12.0 - 16.0 G/DL) 9.1 L 7.7 L Hct (37 - 47 %) 27.5 L 23.9 L MCV (81.0 - 99.0 FL) 86.8 87.6 MCH (27.0 - 31.0 PG) 28.6 28.4 MCHC (33.0 - 37.0 G/DL) 33.0 32.4 L RDW (11.5 - 14.5 %) 14.9 H 14.6 H Plt Count (130 - 400 /CUMM) 277 276 MPV (7.4 - 10.4 FL) 7.7 7.8 Gran % (42.2 - 75.2 %) 71.1 71.8 Lymphocytes % (20.5 - 51.1 %) 17.1 L 16.9 L Monocytes % (1.7 - 9.3 %) 9.9 H 9.6 H Eosinophils % (0 - 5 %) 1.3 1.0 Basophils % (0.0 - 2.0 %) 0.6 0.7 Absolute Granulocytes (1.4 - 6.5 /CUMM) 6.5 6.5 Absolute Lymphocytes (1.2 - 3.4 /CUMM) 1.6 1.5 Absolute Monocytes (0.10 - 0.60 /CUMM) 0.9 H 0.9 H Absolute Eosinophils (0.0 - 0.7 /CUMM) 0.1 0.1 Absolute Basophils (0.0 - 0.2 /CUMM) 0.1 0.1 08/31 08/30 03 0030 1750 1330 Chemistry Sodium (137 - 145 mmol/L) 137 Potassium (3.5 - 5.1 mmol/L) 4.2 Chloride (98 - 107 mmol/L) 93 L Carbon Dioxide (22 - 30 mmol/L) 30 Anion Gap (5 - 16) 13 BUN (7 - 17 mg/dL) 30 H Creatinine (0.5 - 1.0 mg/dL) 0.9 Estimated GFR (>60 ml/min) > 60 BUN/Creatinine Ratio (7 - 25 %) 33.3 H Glucose (65 - 99 mg/dL) 141 H Calcium (8.4 - 10.2 mg/dL) 9.9 Magnesium (1.6 - 2.3 mg/dL) 2.0 Total Bilirubin (0.2 - 1.3 mg/dL) 0.6 AST (14 - 36 U/L) 30 ALT (9 - 52 U/L) 42 Alkaline Phosphatase (<127 U/L) 99 Troponin I (< 0.11 ng/ml) 0.51 *H 0.18 *H 0.05 Uce-C-Flgeoumeism Pept (<125 pg/mL) 734 H Total Protein (6.3 - 8.2 g/dL) 7.0 Albumin (3.5 - 5.0 g/dL) 3.9 Globulin (1.9 - 4.2 gm/dL) 3.1 Albumin/Globulin Ratio (1.1 - 2.2 %) 1.3 Coagulation PT (9.4 - 12.5 SEC) 15.1 H INR (0.90 - 1.19) 1.38 H APTT (25 - 37 SEC) 27 Hematology CBC w Diff NO MAN DIFF REQ WBC (4.8 - 10.8 /CUMM) 8.5 RBC (4.20 - 5.40 /CUMM) 2.37 L Hgb (12.0 - 16.0 G/DL) 6.5 *L Hct (37 - 47 %) 20.4 L MCV (81.0 - 99.0 FL) 86.0 MCH (27.0 - 31.0 PG) 27.4 MCHC (33.0 - 37.0 G/DL) 31.9 L RDW (11.5 - 14.5 %) 14.6 H Plt Count (130 - 400 /CUMM) 300 MPV (7.4 - 10.4 FL) 7.2 L Gran % (42.2 - 75.2 %) 74.6 Lymphocytes % (20.5 - 51.1 %) 15.4 L Monocytes % (1.7 - 9.3 %) 8.9 Eosinophils % (0 - 5 %) 0.6 Basophils % (0.0 - 2.0 %) 0.5 Absolute Granulocytes (1.4 - 6.5 /CUMM) 6.4 Absolute Lymphocytes (1.2 - 3.4 /CUMM) 1.3 Absolute Monocytes (0.10 - 0.60 /CUMM) 0.8 H Absolute Eosinophils (0.0 - 0.7 /CUMM) 0.1 Absolute Basophils (0.0 - 0.2 /CUMM) 0
[2017-09-01 22:31] VITALS: BP 118/70
[2017-09-02 07:00] VITALS: BP 108/67
--- NOTE | 2017-09-02 07:55 | PN- Housestaff ---
Richie WALTON,Shara 09/02/17 0754: Subjective Follow-up For: Severe anemia secondary to GI bleed probably Xarelto A. fib with RVR secondary to noncompliance and severe anemia Right lower extremity swelling and tenderness Tele-Events Since Last Visit: Afebrile, 99, QRS 0.12, PVCS Subjective: Patient was seen and examined at bedside, afebrile, denies any complaints, will be n.p.o. at midnight for colonoscopy tomorrow, patient refused her labs in the morning because of pain, try to convince her but she insisted on refusing the blood work Review of Systems Constitutional: Reports: see HPI. Objective Last 24 Hrs of Vital Signs/I&O Vital Signs Date Time Temp Pulse Resp B/P B/P Pulse O2 O2 Flow FiO2 Mean Ox Delivery Rate 09/02 0931 97.7 73 20 108/67 09/02 0700 97.7 73 20 108/67 92 09/01 2231 98.2 114 22 118/70 93 09/01 2229 107 09/01 1434 97.7 78 20 100/62 93 Room Air Intake & Output 09/02 1600 09/02 0800 09/02 0000 Intake Total 200 370 Output Total 1350 Balance -1150 370 Intake, Oral 200 370 Output, Urine 1350 Patient 293 lb Weight Physical Exam General Appearance: Alert, Oriented X3, Cooperative, No Acute Distress HEENT: Atraumatic, PERRLA, EOMI, Mucous Membr. moist/pink Neck: Supple, No JVD Cardiovascular: Normal S1, Normal S2, No Murmurs Lungs: Clear to Auscultation Abdomen: Normal Bowel Sounds, Soft, No Tenderness Neurological: Normal Speech, Strength at 5/5 X4 Ext, Normal Tone, Sensation Intact Extremities: No Clubbing, No Cyanosis, No Edema Assessment/Plan Assessment: Patient is a 77-year-old female with multiple medical problems including CAD, CABG 3 (2003), hyperlipidemia, hypertension, recently diagnosed as having atrial fibrillation leading to CHF currently on on Xarelto she presented with gradually progressive shortness of breath along with. Pressure in the chest. On examination her lungs were clear but still having bilateral lower extremity edema along with weight gain(280 to 300lb). She does not have controlled on fluid intake, and she does not able to tolerate her medication and she was thinking that they are making to stop taking metoprolol and Xarelto. She was also having black stools. At the time of admission she found to be in atrial fibrillation with rapid ventricular rate, with severe anemia of hemoglobin 6.5( baseline 10.5). Her stool for occult blood was positive. It seems she had GI bleed secondary to anticoagulant are possible other causes including ulcers. Severe anemia and noncompliance to medication lead to see for tachycardia and the chest pain. We will admit the patient to telemetry floor will obtain cardiology and gastroenterology recommendation. We will start patient on clear liquid and keep n.p.o. from the med night for possible upper GI endoscopy. We will transfuse HER-2 units of blood with the goal of hemoglobin more than 8 and give Lasix in between as needed. Plan - Severe anemia secondary to GI bleed probably Xarelto and will rule out other possibilities * s/p 3U PRBC, currently on lasix 20mg IV qd * serial troponins peaked at 0.57 then trended down to 0.26, and EKGs * Currently CC2 diabetic diet * No signs of bleeding overnight. * restarted ASA 81mg, continued holding Xarelto. * Hgb stablized at 8.5 on latest lab. * EGD normal without active bleeding, pending colonoscopy on Sunday. * Clear liquid diet began last night, Dulcolax 5-10 mg at at bedtime tonight * 5 PM liter of GoLYTELY tonight * 5 AM tomorrow morning 2 L of GoLYTELY * If patient gets unstable please call GI stat. Atrial fibrillation with rapid ventricular rate probably secondary to noncompliance and severe anemia * We will continue her home medication including tablet metoprolol 100 mg in the a.m. and tablet metoprolol 50 mg in p.m. * Injection Lasix 20 mg IV daily and as needed * Continue hold Xarelto. Shortness of breath probably secondary to severe anemia with baseline history of CHF * Strict intake output charting * Reduce salt intake * Keep head end of the bed elevated * Cardio recommended that mild troponin elevation was likely due to the severe anemia and had not due to acute coronary syndrome. Right lower extremity swelling and tenderness - Although she was on Xarelto, she was not able to tolerate so we are not sure for compliance. * Continue holding xarelto. Chronic medical condition -hypertension, hyperlipidemia, chronic back pain * We will continue on home medication * Avoid NSAIDs CODE STATUS -DNR/DNI Diet - CC2, will keep NPO on Sunday midnight DVT prophylaxis -Alps, avoid anticoagulant and blood treatment Problem List: 1. Symptomatic anemia 2. Rapid atrial fibrillation 3. GI bleed 4. RANDY (acute kidney injury) Pain Ratin Pain Location: N/A Pain Goal: Remain pain free Pain Plan: PATHWAY Tomorrow's Labs & Rationales: CBC BEP Estefani WALTON,Latonya 09/02/17 1154: Attending MD Review Statement Attending Statement Attending MD Statement: examined this patient, discuss w/resident/PA/WOOL HAT FINISHER, agreed w/resident/PA/WOOL HAT FINISHER, reviewed EMR data (avail), discussed with nursing, discussed with case mgmt, amended to note Attending Assessment/Plan: Patient seen and examined. Resting comfortably not in any acute distress. No issues overnight. Denies any black or bloody stools. Denies any abdominal pain. She remains hemodynamically stable. Telemetry overnight she remained in A. fib with occasional PVCs. No other events. On examination. She does not appear to be in any distress. Lungs are clear bilaterally. Abdomen is soft and nontender. She has no peripheral edema. Recommendations: -Follow-up labs today to ensure that hemoglobin level is stable. -She will undergo bowel prep today for colonoscopy tomorrow. -Follow-up serum chemistry today to monitor her creatinine level. -No need for further telemetry monitoring at this time.
[2017-09-02 14:00] VITALS: BP 98/60
--- NOTE | 2017-09-02 17:32 | PN- Gastroenterology ---
Assessment/Plan GI Assessment/Recommendations: ASSESSMENT: 1. Acute Blood Loss Anemia 2. Chronic Use Anti-Thrombotic Agent 3. Atrial Fibrillation 4. Obesity RECOMMENDATIONS: 1. Colonoscopy in a.m. 2. Preparation tonight, orders written. 3. Risks and benefits discussed with patient. All questions answered. Subjective Subjective: Patient has had no melena nor bright red blood per rectum. She has had several bowel movements after taking Dulcolax. She is prepared for colonoscopy tomorrow and we'll begin her preparation with GoLYTELY this evening. She does not have an IV and refused blood draws this morning. If we are unable to get an IV placed this evening she will need ultrasound for PICC line early tomorrow morning. Objective Vital Signs and I&Os Vital Signs Date Time Temp Pulse Resp B/P B/P Pulse O2 O2 Flow FiO2 Mean Ox Delivery Rate 09/02 1400 97.7 63 20 98/60 97 09/02 0931 97.7 73 20 108/67 09/02 0700 97.7 73 20 108/67 92 09/01 2231 98.2 114 22 118/70 93 09/01 2229 107 Intake & Output 09/02 1600 09/02 0400 09/01 1600 09/01 0400 08/31 1600 08/31 0400 Intake Total 680 370 480 400 870 300 Output Total 1950 250 300 900 600 Balance -1270 370 230 100 -30 -300 Intake, Blood 150 Product Intake, IV 40 600 Intake, Oral 680 370 480 360 120 300 Output, Urine 1950 250 300 900 600 Patient 293 lb 289 lb 293 lb Weight Physical Exam General Appearance: well developed/nourished, no apparent distress, alert, awake Respiratory: normal breath sounds, lungs clear Cardiovascular: normal S1 and S2 Abdomen: normal bowel sounds, soft, non-tender, no organomegaly Extremities: pitting edema Neurologic/Psychiatric: alert, oriented x 3 Current Medications: Current Medications Sig/Manuel Start time Last Medication Dose Route Stop Time Status Admin Acetaminophen 650 MG .STK-MED ONE 09/02 0150 DC PO 09/02 0151 Acetaminophen 650 MG Q6PRN PRN 09/01 2245 AC 09/02 PO 0151 Aspirin 81 MG DAILY 08/31 1000 AC 09/02 PO 0931 Atorvastatin Calcium 10 MG 1700 08/31 1700 AC 09/01 PO 1757 Bisacodyl 5 MG ONE ONE 03/18 2200 DC PO 09/02 2200 Bisacodyl 5 MG ONE ONE 09/01 2230 DC 09/01 PO 09/01 223 223 Bisacodyl 10 MG ONCE ONE 09/01 2200 DC 09/01 PO 09/01 220 223 Furosemide 40 MG DAILY 09/01 1751 AC 09/02 PO 0931 Furosemide 20 MG DAILY 08/31 1000 DC 08/31 IV 1716 Lidocaine 1 PAT DAILY 08/30 1834 AC EXT Metoprolol Tartrate 100 MG QAM 08/31 1000 AC 09/02 PO 0931 Metoprolol Tartrate 50 MG QPM 08/30 2200 AC 09/01 PO 2229 Omeprazole 40 MG DAILY AC 09/01 1750 AC 09/02 PO 0625 Pantoprazole Sodium 80 MG Q10H 08/30 2300 DC 09/01 Sodium Chloride 100 ML IV 0526 Polyethylene Glycol 0.5 GAL ONCE ONE 09/03 0500 AC PO 09/03 0501 Polyethylene Glycol 0.5 GAL ONCE ONE 09/02 1700 DC PO 09/02 1701 Results Pertinent Lab Results: Laboratory Tests 09/01 08/31 0635 2140 Chemistry Sodium (137 - 145 mmol/L) 138 Potassium (3.5 - 5.1 mmol/L) 3.8 Chloride (98 - 107 mmol/L) 97 L Carbon Dioxide (22 - 30 mmol/L) 32 H Anion Gap (5 - 16) 9 BUN (7 - 17 mg/dL) 35 H Creatinine (0.5 - 1.0 mg/dL) 1.2 H Estimated GFR (>60 ml/min) 43 L BUN/Creatinine Ratio (7 - 25 %) 29.2 H Troponin I (< 0.11 ng/ml) 0.26 *H Hematology CBC w Diff NO MAN DIFF REQ WBC (4.8 - 10.8 /CUMM) 8.5 RBC (4.20 - 5.40 /CUMM) 3.01 L Hgb (12.0 - 16.0 G/DL) 8.5 L Hct (37 - 47 %) 26.0 L MCV (81.0 - 99.0 FL) 86.7 MCH (27.0 - 31.0 PG) 28.3 MCHC (33.0 - 37.0 G/DL) 32.7 L RDW (11.5 - 14.5 %) 14.7 H Plt Count (130 - 400 /CUMM) 229 MPV (7.4 - 10.4 FL) 8.0 Gran % (42.2 - 75.2 %) 70.1 Lymphocytes % (20.5 - 51.1 %) 16.7 L Monocytes % (1.7 - 9.3 %) 9.9 H Eosinophils % (0 - 5 %) 2.5 Basophils % (0.0 - 2.0 %) 0.8 Absolute Granulocytes (1.4 - 6.5 /CUMM) 6.0 Absolute Lymphocytes (1.2 - 3.4 /CUMM) 1.4 Absolute Monocytes (0.10 - 0.60 /CUMM) 0.8 H Absolute Eosinophils (0.0 - 0.7 /CUMM) 0.2 Absolute Basophils (0.0 - 0.2 /CUMM) 0.1 08/3146 Chemistry Sodium (137 - 145 mmol/L) 138 Potassium (3.5 - 5.1 mmol/L) 4.5 Chloride (98 - 107 mmol/L) 96 L Carbon Dioxide (22 - 30 mmol/L) 32 H Anion Gap (5 - 16) 9 BUN (7 - 17 mg/dL) 29 H Creatinine (0.5 - 1.0 mg/dL) 1.0 Estimated GFR (>60 ml/min) 53 L BUN/Creatinine Ratio (7 - 25 %) 29.0 H Phosphorus (2.5 - 4.5 mg/dL) 3.5 Magnesium (1.6 - 2.3 mg/dL) 2.0 Troponin I (< 0.11 ng/ml) 0.57 *H Hematology CBC w Diff NO MAN DIFF REQ NO MAN DIFF REQ WBC (4.8 - 10.8 /CUMM) 9.2 9.0 RBC (4.20 - 5.40 /CUMM) 3.16 L 2.73 L Hgb (12.0 - 16.0 G/DL) 9.1 L 7.7 L Hct (37 - 47 %) 27.5 L 23.9 L MCV (81.0 - 99.0 FL) 86.8 87.6 MCH (27.0 - 31.0 PG) 28.6 28.4 MCHC (33.0 - 37.0 G/DL) 33.0 32.4 L RDW (11.5 - 14.5 %) 14.9 H 14.6 H Plt Count (130 - 400 /CUMM) 277 276 MPV (7.4 - 10.4 FL) 7.7 7.8 Gran % (42.2 - 75.2 %) 71.1 71.8 Lymphocytes % (20.5 - 51.1 %) 17.1 L 16.9 L Monocytes % (1.7 - 9.3 %) 9.9 H 9.6 H Eosinophils % (0 - 5 %) 1.3 1.0 Basophils % (0.0 - 2.0 %) 0.6 0.7 Absolute Granulocytes (1.4 - 6.5 /CUMM) 6.5 6.5 Absolute Lymphocytes (1.2 - 3.4 /CUMM) 1.6 1.5 Absolute Monocytes (0.10 - 0.60 /CUMM) 0.9 H 0.9 H Absolute Eosinophils (0.0 - 0.7 /CUMM) 0.1 0.1 Absolute Basophils (0.0 - 0.2 /CUMM) 0.1 0.1 08/31 08/30 0030 1750 Chemistry Troponin I (< 0.11 ng/ml) 0.51 *H 0.18 *H
--- NOTE | 2017-09-02 17:57 | Event Note ---
Event Note Event Note: At 5:30 PM patient requested to speak to medical doctor, she said that she does not want to go for colonoscopy while inpatient and she prefer to go outpatient. I explained the benefits and the risks of not going for colonoscopy especially that she was admitted for severe anemia which might be caused by colon cancer or other active GI disease which need to be further investigated by colonoscopy however she insisted on not having the colon prep or going for colonoscopy tomorrow. We will provide her with a referral to follow up with GI outpatient
[2017-09-02 22:43] VITALS: BP 102/64
[2017-09-03 06:23] VITALS: BP 120/64
--- NOTE | 2017-09-03 07:38 | PN- Housestaff ---
Richie WALTON,Shara 09/03/17 0738: Subjective Follow-up For: Severe anemia secondary to GI bleed probably Xarelto A. fib with RVR secondary to noncompliance and severe anemia Right lower extremity swelling and tenderness Tele-Events Since Last Visit: Santi loredo, 71, PVCs, no overnight events Subjective: Patient was seen and examined at bedside, she refused to take her colon prep and refused to do colonoscopy while inpatient and said that she preferred to do it outpatient, no overnight events, H&H is stable Review of Systems Constitutional: Reports: see HPI. Objective Last 24 Hrs of Vital Signs/I&O Vital Signs Date Time Temp Pulse Resp B/P B/P Pulse O2 O2 Flow FiO2 Mean Ox Delivery Rate 09/03 1129 120/72 09/03 0623 98.1 73 18 120/64 91 09/02 2243 97.6 68 16 102/64 92 09/02 2201 68 102/64 09/02 1400 97.7 63 20 98/60 97 Intake & Output 09/03 1600 09/03 0800 09/03 0000 Intake Total Output Total 350 Balance -350 Output, Urine 350 Patient 293 lb Weight Physical Exam General Appearance: Alert, Oriented X3, Cooperative, No Acute Distress HEENT: Atraumatic, PERRLA, EOMI, Mucous Membr. moist/pink Neck: Supple, No JVD Cardiovascular: Normal S1, Normal S2, No Murmurs Lungs: Clear to Auscultation Abdomen: Normal Bowel Sounds, Soft, No Tenderness Neurological: Normal Speech, Strength at 5/5 X4 Ext, Normal Tone, Sensation Intact Extremities: No Clubbing, No Cyanosis, 2 + PITTING EDEMA Vascular: Normal Pulses Assessment/Plan Assessment: Patient is a 77-year-old female with multiple medical problems including CAD, CABG 3 (2003), hyperlipidemia, hypertension, recently diagnosed as having atrial fibrillation leading to CHF currently on on Xarelto she presented with gradually progressive shortness of breath along with. Pressure in the chest. On examination her lungs were clear but still having bilateral lower extremity edema along with weight gain(280 to 300lb). She does not have controlled on fluid intake, and she does not able to tolerate her medication and she was thinking that they are making to stop taking metoprolol and Xarelto. She was also having black stools. At the time of admission she found to be in atrial fibrillation with rapid ventricular rate, with severe anemia of hemoglobin 6.5( baseline 10.5). Her stool for occult blood was positive. It seems she had GI bleed secondary to anticoagulant are possible other causes including ulcers. Severe anemia and noncompliance to medication lead to see for tachycardia and the chest pain. We will admit the patient to telemetry floor will obtain cardiology and gastroenterology recommendation. We will start patient on clear liquid and keep n.p.o. from the med night for possible upper GI endoscopy. We will transfuse HER-2 units of blood with the goal of hemoglobin more than 8 and give Lasix in between as needed. Plan - Severe anemia secondary to GI bleed probably Xarelto and will rule out other possibilities * s/p 3U PRBC, H&H is stable today * No signs of bleeding overnight. * Continue ASA 81mg, * continued holding Xarelto. As per cardiology recommendation, a lengthy discussion with the patient at this morning, the patient was made aware of the risk of stroke while holding the Xarelto waiting for outpatient colonoscopy * Hgb stablized at 8.7 on latest lab. * EGD normal without active bleeding, pending colonoscopy on Sunday. * If patient gets unstable please call GI stat. Atrial fibrillation with rapid ventricular rate probably secondary to noncompliance and severe anemia * We will continue her home medication including tablet metoprolol 100 mg in the a.m. and tablet metoprolol 50 mg in p.m. * Lasix 40 mg p.o. * Continue hold Xarelto. Shortness of breath probably secondary to severe anemia with baseline history of CHF * Strict intake output charting * Reduce salt intake * Keep head end of the bed elevated * Cardio recommended that mild troponin elevation was likely due to the severe anemia and had not due to acute coronary syndrome. Right lower extremity swelling and tenderness - Although she was on Xarelto, she was not able to tolerate so we are not sure for compliance. * Continue holding xarelto. Chronic medical condition -hypertension, hyperlipidemia, chronic back pain * We will continue on home medication * Avoid NSAIDs CODE STATUS -DNR/DNI Diet - CC2, will keep NPO on Sunday midnight DVT prophylaxis -Alps, avoid anticoagulant and blood treatment Problem List: 1. Symptomatic anemia 2. Rapid atrial fibrillation 3. GI bleed 4. RANDY (acute kidney injury) Pain Ratin Pain Location: N/A Pain Goal: Remain pain free Pain Plan: PATHWAY Tomorrow's Labs & Rationales: CBC BEP Lázaro Vivar 09/03/17 1300: Attending MD Review Statement Attending Statement Attending MD Statement: examined this patient, discuss w/resident/PA/COMMERCIAL HVAC SERVICE TECHNICIAN, agreed w/resident/PA/COMMERCIAL HVAC SERVICE TECHNICIAN, reviewed EMR data (avail), discussed with nursing, discussed with case mgmt Attending Assessment/Plan: Pt refused colonoscopy today. Pt had GI bleed and required 3 U PRBC. Pt was explained that it is really important that she gets colonoscopy but she wants to do it as an outpatient. Pt was on Novel Antiocoagulant agent which was held at admission. Plan is to not restart it for now due to her drop in hb requiring transfusion. Pt made aware of the high risk of stroke with stopping antiocoagulation. Plan is to dc her home with home care. Pt will f/u with GI as an outpatient for colonoscopy.
[2017-09-03 08:19] LABS: ABSOLUTE BASOPHIL COUNT 0 /CUMM (0.0-0.2); ABSOLUTE EOSINOPHIL COUNT 0.2 /CUMM (0.0-0.7); ABSOLUTE GRANULOCYTE CT 5.3 /CUMM (1.4-6.5); ABSOLUTE LYMPH COUNT 1.2 /CUMM (1.2-3.4); ABSOLUTE MONOCYTE COUNT 0.6 /CUMM (0.10-0.60); BASOPHIL % 0.6 % (0.0-2.0); EOSINOPHIL % 2.7 % (0-5); GRANULOCYTE % 71.9 % (42.2-75.2); MEAN CORPUSCULAR HGB 27.6 PG (27.0-31.0); MEAN CORPUSCULAR HGB CONC 32.1 G/DL (33.0-37.0); MEAN CORPUSCULAR VOLUME 86.2 FL (81.0-99.0); MEAN PLATELET VOLUME 7.8 FL (7.4-10.4); PLATELET COUNT 240 /CUMM (130-400); RED BLOOD CELL CT 3.14 /CUMM (4.20-5.40); WHITE BLOOD CELL COUNT 7.4 /CUMM (4.8-10.8)
--- NOTE | 2017-09-03 10:15 | PN- Gastroenterology ---
Assessment/Plan GI Assessment/Recommendations: ASSESSMENT: 1. Atrial Fibrillation -- currently off anticoagulation 2. Severe Anemia -- patient refusing colonoscopy 3. Morbid Obesity RECOMMENDATIONS: 1. Patient to follow up with me as an outpatient. 2. Would discharge to home on oral iron and vitamin C 3. Outpatient colonoscopy to complete workup Subjective Subjective: Patient did not take colonic preparation last night. Patient was speaking with hospital patient care promotional representative when I came to see her. She was upset about being asked to drink the GoLYTELY and felt pressured. She would prefer to have colonoscopy done as an outpatient. I explained to her that she would need long-term anticoagulation for atrial fibrillation. I also explained that in the hospital we could take her off heparin for a few hours which is safer than taking her off anticoagulation for several days with regard to the possibility of stroke. She understands this but does not want to have colonoscopy in hospital and will prefer to do this as an outpatient. She agrees to follow-up with me in the office and be scheduled for outpatient colonoscopy in the near future. I've explained to her that she is anemic and that we do not have an explanation for her anemia and that by not doing colonoscopy we may miss a colorectal cancer. She understands this and has agreed to follow-up. She is being given my contact information. Objective Vital Signs and I&Os Vital Signs Date Time Temp Pulse Resp B/P B/P Pulse O2 O2 Flow FiO2 Mean Ox Delivery Rate 09/03 0623 98.1 73 18 120/64 91 09/02 2243 97.6 68 16 102/64 92 09/02 2201 68 102/64 09/02 1400 97.7 63 20 98/60 97 Intake & Output 09/03 1600 09/03 0400 09/02 1600 09/02 0400 09/01 1600 09/01 0400 Intake Total 680 370 480 400 Output Total 350 1950 250 300 Balance -350 -1270 370 230 100 Intake, IV 40 Intake, Oral 680 370 480 360 Output, Urine 350 1950 250 300 Patient 293 lb 293 lb 289 lb Weight Physical Exam General Appearance: well developed/nourished, no apparent distress Respiratory: no respiratory distress Neurologic/Psychiatric: awake, alert, oriented x 3, normal mood/affect Current Medications: Current Medications Sig/Manuel Start time Last Medication Dose Route Stop Time Status Admin Acetaminophen 650 MG Q6PRN PRN 09/01 224 AC 09/02 PO 0151 Aspirin 81 MG DAILY 08/31 1000 AC 09/02 PO 0931 Atorvastatin Calcium 10 MG 1700 08/31 1700 AC 09/02 PO 1821 Bisacodyl 5 MG ONE ONE 09/02 2200 DC PO 09/02 220 Chlorhexidine 1 GM .STK-MED ONE 09/03 0845 DC Gluconate TOP 09/03 0846 Furosemide 40 MG DAILY 09/01 1751 AC 09/02 PO 0931 Lidocaine 1 PAT DAILY 08/30 1834 AC EXT Metoprolol Tartrate 100 MG QAM 08/31 1000 AC 09/02 PO 0931 Metoprolol Tartrate 50 MG QPM 08/30 2200 AC 09/02 PO 2201 Omeprazole 40 MG DAILY AC 09/01 1750 AC 09/03 PO 0541 Polyethylene Glycol 0.5 GAL ONCE ONE 09/03 0500 DC PO 09/03 0501 Polyethylene Glycol 0.5 GAL ONCE ONE 09/02 1700 DC PO 09/02 1701 Results Pertinent Lab Results: Laboratory Tests 09/03 09/02 0703 0600 Chemistry Sodium (137 - 145 mmol/L) 137 Cancelled Potassium (3.5 - 5.1 mmol/L) 3.9 Cancelled Chloride (98 - 107 mmol/L) 95 L Cancelled Carbon Dioxide (22 - 30 mmol/L) 31 H Cancelled Anion Gap (5 - 16) 11 Cancelled BUN (7 - 17 mg/dL) 24 H Cancelled Creatinine (0.5 - 1.0 mg/dL) 1.0 Cancelled Estimated GFR (>60 ml/min) 53 L BUN/Creatinine Ratio (7 - 25 %) 24.0 Cancelled Hematology CBC w Diff NO MAN DIFF REQ Cancelled WBC (4.8 - 10.8 /CUMM) 7.4 Cancelled RBC (4.20 - 5.40 /CUMM) 3.14 L Cancelled Hgb (12.0 - 16.0 G/DL) 8.7 L Cancelled Hct (37 - 47 %) 27.0 L Cancelled MCV (81.0 - 99.0 FL) 86.2 Cancelled MCH (27.0 - 31.0 PG) 27.6 Cancelled MCHC (33.0 - 37.0 G/DL) 32.1 L Cancelled RDW (11.5 - 14.5 %) 15.0 H Cancelled Plt Count (130 - 400 /CUMM) 240 Cancelled MPV (7.4 - 10.4 FL) 7.8 Cancelled Gran % (42.2 - 75.2 %) 71.9 Lymphocytes % (20.5 - 51.1 %) 16.1 L Monocytes % (1.7 - 9.3 %) 8.7 Eosinophils % (0 - 5 %) 2.7 Basophils % (0.0 - 2.0 %) 0.6 Absolute Granulocytes (1.4 - 6.5 /CUMM) 5.3 Absolute Lymphocytes (1.2 - 3.4 /CUMM) 1.2 Absolute Monocytes (0.10 - 0.60 /CUMM) 0.6 Absolute Eosinophils (0.0 - 0.7 /CUMM) 0.2 Absolute Basophils (0.0 - 0.2 /CUMM) 0 09/01 08/31 0635 2140 Chemistry Sodium (137 - 145 mmol/L) 138 Potassium (3.5 - 5.1 mmol/L) 3.8 Chloride (98 - 107 mmol/L) 97 L Carbon Dioxide (22 - 30 mmol/L) 32 H Anion Gap (5 - 16) 9 BUN (7 - 17 mg/dL) 35 H Creatinine (0.5 - 1.0 mg/dL) 1.2 H Estimated GFR (>60 ml/min) 43 L BUN/Creatinine Ratio (7 - 25 %) 29.2 H Troponin I (< 0.11 ng/ml) 0.26 *H Hematology CBC w Diff NO MAN DIFF REQ WBC (4.8 - 10.8 /CUMM) 8.5 RBC (4.20 - 5.40 /CUMM) 3.01 L Hgb (12.0 - 16.0 G/DL) 8.5 L Hct (37 - 47 %) 26.0 L MCV (81.0 - 99.0 FL) 86.7 MCH (27.0 - 31.0 PG) 28.3 MCHC (33.0 - 37.0 G/DL) 32.7 L RDW (11.5 - 14.5 %) 14.7 H Plt Count (130 - 400 /CUMM) 229 MPV (7.4 - 10.4 FL) 8.0 Gran % (42.2 - 75.2 %) 70.1 Lymphocytes % (20.5 - 51.1 %) 16.7 L Monocytes % (1.7 - 9.3 %) 9.9 H Eosinophils % (0 - 5 %) 2.5 Basophils % (0.0 - 2.0 %) 0.8 Absolute Granulocytes (1.4 - 6.5 /CUMM) 6.0 Absolute Lymphocytes (1.2 - 3.4 /CUMM) 1.4 Absolute Monocytes (0.10 - 0.60 /CUMM) 0.8 H Absolute Eosinophils (0.0 - 0.7 /CUMM) 0.2 Absolute Basophils (0.0 - 0.2 /CUMM) 0.1 08/31 2009 Hematology CBC w Diff NO MAN DIFF REQ WBC (4.8 - 10.8 /CUMM) 9.2 RBC (4.20 - 5.40 /CUMM) 3.16 L Hgb (12.0 - 16.0 G/DL) 9.1 L Hct (37 - 47 %) 27.5 L MCV (81.0 - 99.0 FL) 86.8 MCH (27.0 - 31.0 PG) 28.6 MCHC (33.0 - 37.0 G/DL) 33.0 RDW (11.5 - 14.5 %) 14.9 H Plt Count (130 - 400 /CUMM) 277 MPV (7.4 - 10.4 FL) 7.7 Gran % (42.2 - 75.2 %) 71.1 Lymphocytes % (20.5 - 51.1 %) 17.1 L Monocytes % (1.7 - 9.3 %) 9.9 H Eosinophils % (0 - 5 %) 1.3 Basophils % (0.0 - 2.0 %) 0.6 Absolute Granulocytes (1.4 - 6.5 /CUMM) 6.5 Absolute Lymphocytes (1.2 - 3.4 /CUMM) 1.6 Absolute Monocytes (0.10 - 0.60 /CUMM) 0.9 H Absolute Eosinophils (0.0 - 0.7 /CUMM) 0.1 Absolute Basophils (0.0 - 0.2 /CUMM) 0.1
--- NOTE | 2017-09-03 11:34 | PN- Cardiology ---
Subjective Subjective: The patient is resting comfortably. She has deferred additional GI evaluation to outpatient. Objective Vital Signs and I&Os Vital Signs Date Time Temp Pulse Resp B/P B/P Pulse O2 O2 Flow FiO2 Mean Ox Delivery Rate 09/03 0623 98.1 73 18 120/64 91 09/02 2243 97.6 68 16 102/64 92 09/02 2201 68 102/64 09/02 1400 97.7 63 20 98/60 97 Intake & Output 09/03 1600 09/03 0800 09/03 0000 09/02 1600 09/02 0800 09/02 0000 Intake Total 480 200 370 Output Total 108 518 8077 Balance -350 -120 -1150 370 Intake, Oral 480 200 370 Output, Urine 518 524 3409 Patient 293 lb 293 lb Weight Physical Exam: General: no apparent distress. Alert. Eyes: No obvious scleral icterus. HEENT: No jugular venous distention or abnormal jugular venous pulsations. Cardiovascular: Normal intensity S1/S2. Irregular, one out of 6 systolic murmur Respiratory: Lungs clear to auscultation bilaterally. Abdomen: Soft, nontender with no guarding or rebound tenderness. Musculoskeletal: No clubbing or cyanosis noted Skin: Warm Neurologic: No gross focal deficits noted. Lymph: No gross lymphadenopathy. Current Medications: Current Medications Sig/Manuel Start time Last Medication Dose Route Stop Time Status Admin Acetaminophen 650 MG Q6PRN PRN 09/01 2245 AC 09/02 PO 0151 Aspirin 81 MG DAILY 08/31 1000 AC 09/02 PO 0931 Atorvastatin Calcium 10 MG 1700 08/31 1700 AC 09/02 PO 1821 Bisacodyl 5 MG ONE ONE 09/02 2200 DC PO 09/02 220 Chlorhexidine 1 GM .STK-MED ONE 09/03 0845 DC Gluconate TOP 09/03 0846 Furosemide 40 MG DAILY 09/01 1751 AC 09/02 PO 0931 Lidocaine 1 PAT DAILY 08/30 1834 AC EXT Metoprolol Tartrate 100 MG QAM 08/31 1000 AC 09/02 PO 0931 Metoprolol Tartrate 50 MG QPM 08/30 2200 AC 09/02 PO 2201 Omeprazole 40 MG DAILY AC 09/01 1750 AC 09/03 PO 0541 Polyethylene Glycol 0.5 GAL ONCE ONE 09/03 0500 DC PO 09/03 0501 Polyethylene Glycol 0.5 GAL ONCE ONE 09/02 1700 DC PO 09/02 1701 Results Last 48 Hrs of Labs/Mics: Laboratory Tests 09/03/17 0703: Anion Gap 11, Estimated GFR 53 L, BUN/Creatinine Ratio 24.0, CBC w Diff NO MAN DIFF REQ, RBC 3.14 L, MCV 86.2, MCH 27.6, MCHC 32.1 L, RDW 15.0 H, MPV 7.8, Gran % 71.9, Lymphocytes % 16.1 L, Monocytes % 8.7, Eosinophils % 2.7, Basophils % 0.6, Absolute Granulocytes 5.3, Absolute Lymphocytes 1.2, Absolute Monocytes 0.6, Absolute Eosinophils 0.2, Absolute Basophils 0 09/02/17 0600: Sodium Cancelled, Potassium Cancelled, Chloride Cancelled, Carbon Dioxide Cancelled, Anion Gap Cancelled, BUN Cancelled, Creatinine Cancelled, BUN/ Creatinine Ratio Cancelled, CBC w Diff Cancelled, WBC Cancelled, RBC Cancelled, Hgb Cancelled, Hct Cancelled, MCV Cancelled, MCH Cancelled, MCHC Cancelled, RDW Cancelled, Plt Count Cancelled, MPV Cancelled Recent Imaging Studies: Not on Tele Assessment/Plan Assessment/Plan 1. Recently diagnosed atrial fibrillation, was started on Xarelto 2. Symptomatic anemia likely due to GI bleeding; Xarlelto on hold 3. Hypertension 4. Coronary disease status post coronary bypass surgery in 2003 with RICHARDSON to the LAD, saphenous vein grafts to the OM and PDA 5. Obesity 6. Chronic sciatic pain 7. Elevated troponin likely due to severe anemia with supply/demand mismatch 8. Hyperlipidemia 9. Diastolic heart failure, compensated 10. Aortic stenosis Patient remains hemodynamically stable. She has declined inpatient colonoscopy and thus her anticoagulation remains on hold; she will schedule the colonoscopy as an outpatient and she will then determine whether or not she wishes to restart anticoagulation based on the results of that procedure. We discussed the current plan at length and she is aware of the risk of stroke while holding anticoagulation. She is aware she will require close follow-up after discharge. Vernon Figueroa MD [facility] Continue telemetry? Not applicable
[2017-09-03 14:58] VITALS: BP 118/70
[2017-09-03] MEDS ORDERED: LISINOPRIL10 M1 PO (15:32)
== END 2017-09-03 19:10 | disposition home health service (06) | DRG 378 ==
LOC: ERH 11:48 → ERHI 15:29 → 1NO 15:29 → ENRESERV 17:19 → ENTRNSPT 18:29 → EDTRNSPTSTS 18:34 → EDTRNSPT 18:34 → 1NO 18:43 → CMPTRNSPT 18:52 → 1NO 08-31 09:47 → ENPENDDIS 09-03 15:07 → 1NO 09-03 19:10
PROVIDERS: Internal Medicine Adolescent Medicine; Physician Assistant Medical; Student in an Organized Health Care Education/Training Program
PROC: 30233P1 Transfusion of Nonautologous Frozen Red Cells into Peripheral Vein, Percutaneous Approach (ICD-10-PCS; principal; 2017-08-30)
PROC: 0DJ08ZZ Inspection of Upper Intestinal Tract, Via Natural or Artificial Opening Endoscopic (ICD-10-PCS; 2017-08-31)
DX: K92.2 Gastrointestinal hemorrhage, unspecified (principal); D62 Acute posthemorrhagic anemia; I50.32 Chronic diastolic (congestive) heart failure; I11.0 Hypertensive heart disease with heart failure; I48.91 Unspecified atrial fibrillation; E66.01 Morbid (severe) obesity due to excess calories; Z68.42 Body mass index [BMI] 45.0-49.9, adult; Z79.01 Long term (current) use of anticoagulants; Z91.14 Patient's other noncompliance with medication regimen; I25.10 Atherosclerotic heart disease of native coronary artery without angina pectoris; M79.7 Fibromyalgia; I25.2 Old myocardial infarction; D50.9 Iron deficiency anemia, unspecified; M54.30 Sciatica, unspecified side; Z79.82 Long term (current) use of aspirin; I35.0 Nonrheumatic aortic (valve) stenosis; Z95.1 Presence of aortocoronary bypass graft
CPT/HCPCS: 1NSP; 36415; 36592; 71045; 82436; 86920; 93005; 93010; 93308; 93321; 96374; 99291; J1940; J3490; J7040; J7042; P9016